=== PATIENT | female | born 1980 | race African-American/Black ===

== ENCOUNTER 2016-08-18 21:42 | Emergency (ER) | payer MEDICAID, OTHER ==
[~2016-08-18] VITALS: Ht 165.1 cm; Wt 113.4 kg
[~2016-08-18 21:42] MED LIST: IBUP-1060 PO; ONDA4TAB7 PO
[2016-08-18 21:50] VITALS: BP 188/131
[2016-08-18] MEDS ORDERED: NAPROXEN 500 MG TABLET PO ONE (22:15)
[2016-08-18] MEDS ORDERED: HYDROCODONE/APAP 5/325MG TABLET. PO ONE (22:15)
--- NOTE | 2016-08-18 22:21 | PHYS DOC ---
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 Patient states she was ambulating to the bathroom doing the " pee, pee dance" when she fell. Patient denies any loss of consciousness. Review of Systems Review of Systems Constitutional: Denies fever or chills [] Eyes: Denies change in visual acuity, redness, or eye pain [] Musculoskeletal: Left ankle pain Integument: Denies rash or skin lesions [] Neurologic: Denies headache, focal weakness or sensory changes [] Endocrine: Denies polyuria or polydipsia [] Current Medications Current Medications Current Medications Medications (Trade) Dose Ordered Sig/Carole Start Time Stop Time Status Last Admin Dose Admin Acetaminophen/ Hydrocodone Bitart (Lortab 5/325) 1 tab 1X ONCE 08/18/16 22:15 08/18/16 22:16 DC 08/18/16 22:19 1 TAB Naproxen (Naprosyn) 500 mg 1X ONCE 08/18/16 22:15 08/18/16 22:16 DC 08/18/16 22:19 500 MG Allergies Allergies Allergies Coded Allergies Type Severity Reaction Last Updated Verified No Known Drug Allergies 05/26/16 No Physical Exam Physical Exam Constitutional: Well developed, well nourished, no acute distress, non-toxic appearance. [] HENT: Normocephalic, atraumatic, bilateral external ears normal, oropharynx moist, no oral exudates, nose normal. [] Skin: Warm, dry, no erythema, no rash. [] Back: No tenderness, no CVA tenderness. [] Extremities: Left ankle with no obvious deformity. Left lateral ankle with bruising. Tenderness on palpation of the left lateral ankle. Mild amount of soft tissue swelling throughout the ankle worse on the lateral aspect. Full range of motion to the left ankle including flexion and extension. +2 left pedal pulse. Cap refill less than 2 seconds the left lower extremity. Sensation intact to the left lower extremity. Neurologic: Alert and oriented X 3, normal motor function, normal sensory function, no focal deficits noted. [] Psychologic: Affect normal, judgement normal, mood normal. [] Current Patient Data Vital Signs Vital Signs Date Time Temp Pulse Resp B/P Pulse Ox O2 Delivery O2 Flow Rate FiO2 08/18/16 22:19 18 97 Room Air 08/18/16 21:50 98.2 103 98.2 EKG EKG [] Radiology/Procedures Radiology/Procedures [] Course & Med Decision Making Course & Med Decision Making Pertinent Labs and Imaging studies reviewed. (See chart for details) Patient is in the ED with left ankle pain after falling. Left ankle x-rays interpreted by Dr. Walker are negative for any acute findings. Air cast was applied to the left ankle by the ED RN, neurovascular exam done by me is normal , cap refill less than 2 seconds. Ice elevation encouraged. Naproxen for pain. Follow-up with Ortho in one week. Dragon Disclaimer Dragon Disclaimer This electronic medical record was generated, in whole or in part, using a voice recognition dictation system. Departure Departure Impression: Primary Impression: Fall from standing Additional Impression: Left ankle sprain Disposition: 01 HOME, SELF-CARE Condition: STABLE Referrals: NO PCP (PCP) CAMI HEATH MD See him in one week Patient Instructions: Ankle Sprain Additional Instructions: You have left ankle sprain. Ice and elevate the extremity. Wear the air cast as needed. Follow-up with the provided orthopedic doctor in one week if pain continues. Problem Qualifiers Primary Impression: Fall from standing Encounter type: initial encounter Qualified Code: W19.XXXA - Unspecified fall, initial encounter Additional Impression: Left ankle sprain Encounter type: initial encounter Involved ligament of ankle: unspecified ligament Qualified Code: S93.402A - Sprain of unspecified ligament of left ankle, initial encounter ARGELIAJUSTUS TRUCKING SUPERVISOR Aug 18, 2016 22:21
--- NOTE | 2016-08-19 08:08 | RAD ---
Indication fall, pain. AP oblique and lateral views of the left ankle were obtained. There is some soft tissue swelling which is relatively mild. No acute bony finding is seen.
== END 2016-08-18 23:30 | disposition home or self-care (01) ==
LOC: ER 21:42
DX: S93.402A Sprain of unspecified ligament of left ankle, initial encounter (principal); I10 Essential (primary) hypertension; W19.XXXA Unspecified fall, initial encounter; Y93.01 Activity, walking, marching and hiking; Y92.89 Other specified places as the place of occurrence of the external cause; Y99.8 Other external cause status
CPT/HCPCS: 29515; 73610; 99284-25

== ENCOUNTER → 2016-09-28 | Outpatient (CLI) | payer OTHER ==
--- NOTE | 2016-09-28 14:20 | KCIC ---
PROCEDURE MR of the left knee HISTORY Left knee pain. Fell 1 month ago. Medial pain and swelling. COMPARISON None TECHNIQUE Routine multiplanar sequences are obtained. FINDINGS No evidence of medial meniscal tear. Lateral meniscus demonstrates mild signal at the anterior horn, suspicious for mild tear but not definitive. Posterior horn intact. Anterior and posterior cruciate ligaments are intact. Medial collateral ligament sprain without rupture. Iliotibial band unremarkable. Fibular collateral ligament, biceps femoris tendon and popliteus tendon are intact. Extensor mechanism is intact. Small joint effusion. No evidence of osteochondral loose body. 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 No evidence of bone lesion or acute fracture. Trace Garcia cyst. Mild lateral patellar tilt and subluxation. Mild subcutaneous edema anterior to the knee. IMPRESSION Mild anterior horn lateral meniscal signal, potentially a small tear. Posterior horn intact. Electronically signed by: Constantin Renee MD (September 28, 2016 14:18:31)
== END | disposition home or self-care (01) ==
LOC: KCIC MRI 13:03
PROVIDERS: ATTEND Orthopaedic Surgery
DX: M25.562 Pain in left knee (principal)
CPT/HCPCS: 73721

== ENCOUNTER 2016-11-12 20:38 | Emergency (ER) | payer OTHER ==
[~2016-11-12] VITALS: Ht 165.1 cm; Wt 151.1 kg
[2016-11-12 20:55] VITALS: BP 165/94
[2016-11-12] MEDS ORDERED: HYDR-971 PO (21:13)
[2016-11-12] MEDS ORDERED: CLIN150C14 PO (21:13)
--- NOTE | 2016-11-12 21:14 | PHYS DOC ---
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 She states that she changed deodorant 3 days ago and this developed. She denies any fever, chills or any nausea vomiting. She denies any drainage coming from the site. Patient states that she has never had an abscess before. Pain is a 10 out of 10 although has not taken anything for the discomfort for the last 3 days. Review of Systems Review of Systems Constitutional: Denies fever or chills [] Eyes: Denies change in visual acuity, redness, or eye pain [] HENT: Denies nasal congestion or sore throat [] Respiratory: Denies cough or shortness of breath [] Cardiovascular: No additional information not addressed in HPI [] GI: Denies abdominal pain, nausea, vomiting, bloody stools or diarrhea [] : Denies dysuria or hematuria [] Musculoskeletal: Denies back pain or joint pain [] Integument: Denies rash or skin lesions. Abscess to the right axilla Neurologic: Denies headache, focal weakness or sensory changes [] Endocrine: Denies polyuria or polydipsia [] Allergies Allergies Allergies Coded Allergies Type Severity Reaction Last Updated Verified No Known Drug Allergies 05/26/16 No Physical Exam Physical Exam Constitutional: Well developed, well nourished, no acute distress, non-toxic appearance. [] HENT: Normocephalic, atraumatic, bilateral external ears normal, oropharynx moist, no oral exudates, nose normal. [] Eyes: PERRLA, EOMI, conjunctiva normal, no discharge. [] Neck: Normal range of motion, no tenderness, supple, no stridor. [] Cardiovascular:Heart rate regular rhythm, no murmur [] Lungs & Thorax: Bilateral breath sounds clear to auscultation [] Skin: Warm, dry, no erythema, no rash. Abscess noted to the right axillary area with no induration noted. No drainage or discharge noted. Redness was noted tenderness noted. Back: No tenderness Extremities: No tenderness, no cyanosis, no clubbing, ROM intact, no edema. [] Neurologic: Alert and oriented X 3, normal motor function, normal sensory function, no focal deficits noted. [] Psychologic: Affect normal, judgement normal, mood normal. [] Current Patient Data Vital Signs Vital Signs Date Time Temp Pulse Resp B/P (MAP) Pulse Ox O2 Delivery O2 Flow Rate FiO2 11/12/16 20:55 98.8 100 18 96 Room Air 98.8 EKG EKG [] Radiology/Procedures Radiology/Procedures [] Course & Med Decision Making Course & Med Decision Making Pertinent Labs and Imaging studies reviewed. (See chart for details) Patient was instructed to use warm moist packs 5 times a day for 20 minutes at a time. Recommended patient to follow up care physician in the next 3-5 days. Also instructed patient to take the medication as prescribed be provided with clindamycin and Cantrall for pain and discomfort. She was instructed that Cantrall will cause drowsiness do not take any be alert and oriented. Patient agrees with discharge instructions, treatment regimens and follow-up recommendations. Signs and symptoms to return back to emergency department has been provided. [] Dragon Disclaimer Dragon Disclaimer This electronic medical record was generated, in whole or in part, using a voice recognition dictation system. Departure Departure Impression: Primary Impression: Abscess of right axilla Disposition: HOME, SELF-CARE Condition: STABLE Referrals: NO PCP (PCP) Patient Instructions: Abscess, Evrc-oh-Xmax Additional Instructions: Activity as tolerated. Medication as prescribed. Hydrocodone will cause drowsiness do not take any be alert and oriented. Warm moist packs to the area I times a day for 20 minutes at a time. Follow-up through primary care physician next 3-5 days. Return back to emergency prior signs symptoms of become worse. Scripts Hydrocodone/Apap 5-325 (NORCO 5-325 TABLET) 1 Each Tablet 1 TAB PO PRN Q6HRS Y for PAIN, #20 TAB 0 Refills Prov: JULIO ESCALERA APRN 11/12/16 Clindamycin Hcl (CLINDAMYCIN HCL) 150 Mg Capsule 3 CAP PO TID for 10 Days, CAP Prov: JULIO ESCALERA APRN 11/12/16 JULIO ESCALERA APRN Nov 12, 2016 21:14
[2016-11-12] MEDS ORDERED: DIPHTH,PERTUSS(ACELL),TET TOX 0.5 ML DISP.SYRIN. VAX IM ONE (22:00)
== END 2016-11-12 21:41 | disposition home or self-care (01) ==
LOC: ER 20:38
DX: L02.411 Cutaneous abscess of right axilla (principal); I10 Essential (primary) hypertension
CPT/HCPCS: 90471; 90715; 99283-25

== ENCOUNTER 2017-02-09 12:22 | Emergency (ER) | payer OTHER ==
[~2017-02-09] VITALS: Ht 165.1 cm; Wt 151.0 kg
[~2017-02-09 12:22] MED LIST changes: +CLIN150C14 PO; +HYDR-971 PO
[2017-02-09 13:35] VITALS: BP 182/130
--- NOTE | 2017-02-09 13:46 | PHYS DOC ---
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 She states that she has twisted her knee twice this week and now has generalized pain from the knee down. She states that nothing but rest has improved the pain. Review of Systems Review of Systems Constitutional: Denies fever or chills [] Respiratory: Denies cough or shortness of breath [] Cardiovascular: No additional information not addressed in HPI [] Musculoskeletal: See history of present illness Integument: Denies rash or skin lesions [] Neurologic: Denies headache, focal weakness or sensory changes [] Endocrine: Denies polyuria or polydipsia [] Allergies Allergies Allergies Coded Allergies Type Severity Reaction Last Updated Verified No Known Drug Allergies 05/26/16 No Physical Exam Physical Exam Constitutional: Well developed, well nourished, no acute distress, non-toxic appearance. [] Cardiovascular:Heart rate regular rhythm, no murmur [] Lungs & Thorax: Bilateral breath sounds clear to auscultation [] Skin: Warm, dry, no erythema, no rash. [] Back: No tenderness, no CVA tenderness. [] Extremities: Patient has tenderness to left knee and ankle that is generalized, no swelling, erythema, bruising noted to either extremity, pulses and sensation are intact distal to injury Neurologic: Alert and oriented X 3, normal motor function, normal sensory function, no focal deficits noted. [] Psychologic: Affect normal, judgement normal, mood normal. [] Current Patient Data Vital Signs Vital Signs Date Time Temp Pulse Resp B/P (MAP) Pulse Ox O2 Delivery O2 Flow Rate FiO2 02/09/17 13:35 98.7 80 16 97 Room Air 98.7 EKG EKG [] Radiology/Procedures Radiology/Procedures []PATIENT: NEO MACKEY ACCOUNT: [id number] : 1980 LOCATION: ER AGE: 36 SEX: F EXAM STATUS: REG ER ORD. PHYSICIAN: NON,STAFF REASON: pain, fell down x 4 days ago PROCEDURE: ANKLE LEFT 3V Exam: Left ankle radiograph 02/09/2017 at 1348 hours Indication: Pain, fall Comparison: Left ankle radiograph 08/18/2016 Technique: 3 views of the left ankle are provided. Findings: There is no acute fracture or dislocation. Tibial plafond and talar dome are intact. Ankle mortise is congruent. No joint space narrowing. No soft tissue swelling. No osseous erosion or soft tissue gas. Bone mineralization is within normal limits. Impression: No acute fracture or dislocation. DICTATED and SIGNED BY: KISHA BRUCE MD DATE: 02/09/171439 CC: NO PCP; NON,STAFF ~ Impressions: PATIENT: NEO MACKEY ACCOUNT: [id number] : 1980 LOCATION: ER AGE: 36 SEX: F EXAM STATUS: REG ER ORD. PHYSICIAN: NON,STAFF REASON: pain, fell down x 4 days ago PROCEDURE: KNEE LEFT 3V Left knee radiograph 02/09/2017 at 1358 hours Indication: Pain, fall Comparison: None available Technique: 4 views of the left knee are provided. Findings: There is no acute fracture or dislocation. Joint spaces are maintained. Bone mineralization is within normal limits. There is no significant joint effusion. Impression: No acute fracture or dislocation. DICTATED and SIGNED BY: KISHA BRUCE MD DATE: 02/09/171441 Course & Med Decision Making Course & Med Decision Making Pertinent Labs and Imaging studies reviewed. (See chart for details) []1. Knee sprain 2. Ankle sprain Patient was wrapped with Arpit wrap. She is to use ibuprofen or Tylenol for pain at home. RICE. She is to follow-up with her PCP in one week if not improving or return to the ED if worsening. Dragon Disclaimer Dragon Disclaimer This electronic medical record was generated, in whole or in part, using a voice recognition dictation system. Departure Departure Referrals: NO PCP (PCP) GINNY VIRK APRN Feb 09, 2017 13:46
--- NOTE | 2017-02-09 14:43 | RAD ---
Exam: Left ankle radiograph 02/09/2017 at 1348 hours Indication: Pain, fall Comparison: Left ankle radiograph 08/18/2016 Technique: 3 views of the left ankle are provided. Findings: There is no acute fracture or dislocation. Tibial plafond and talar dome are intact. Ankle mortise is congruent. No joint space narrowing. No soft tissue swelling. No osseous erosion or soft tissue gas. Bone mineralization is within normal limits. Impression: No acute fracture or dislocation.
--- NOTE | 2017-02-09 14:46 | RAD ---
Left knee radiograph 02/09/2017 at 1358 hours Indication: Pain, fall Comparison: None available Technique: 4 views of the left knee are provided. Findings: There is no acute fracture or dislocation. Joint spaces are maintained. Bone mineralization is within normal limits. There is no significant joint effusion. Impression: No acute fracture or dislocation.
== END 2017-02-09 15:01 | disposition home or self-care (01) ==
LOC: ER 12:22
DX: S93.402A Sprain of unspecified ligament of left ankle, initial encounter (principal); S83.92XA Sprain of unspecified site of left knee, initial encounter; I10 Essential (primary) hypertension; X50.9XXA Other and unspecified overexertion or strenuous movements or postures, initial encounter; Y93.89 Activity, other specified; Y99.8 Other external cause status; Y92.89 Other specified places as the place of occurrence of the external cause
CPT/HCPCS: 73562; 73610; 99284

== ENCOUNTER → 2017-02-27 | Outpatient (CLI) | payer OTHER ==
[2017-02-09 13:35] VITALS: BP 182/130
--- NOTE | 2017-02-27 10:25 | KCIC ---
LOWER EXT JOINT WO LT dated 02/27/2017 9:30 AM Indication: Left knee pain , swelling , generalized pain. Comparison: 09/28/2016 Technique: Routine multiplanar multisequence imaging performed. . Findings: Mild tricompartmental hypertrophic change with small marginal osteophytes. Thinning and surface irregularity of the articular cartilage throughout. No full-thickness cartilage defect. Near full-thickness cartilage fissuring at the medial and lateral patellar facet. Moderate size joint effusion. Small popliteal cyst. No intra-articular loose body. Anterior cruciate and posterior cruciate ligaments are intact. There is abnormal T2 hyperintense signal along the medial collateral ligament complex proximally with ill-defined admission of the superficial and deep fibers. Edema also extends along the pes anserine complex distally. There is also some increased signal within the distal adductor [place] tendon. Findings have progressed from prior exam. Lateral collateral complex, iliotibial band, popliteus tendon within normal limits. Quadriceps and patellar tendon are intact. No abnormality of the medial or lateral retinaculum. Mild patchy edema within the prepatellar and superficial infrapatellar soft tissues. There is also mild edema within the popliteus musculotendinous junction. Blunted morphology of the free edge of the anterior horn/body of lateral meniscus with possible small linear defect within the substance of the anterior horn extending to the tibial articular surface. The posterior horn is intact. The medial meniscus is small but otherwise intact. No apparent meniscal cyst. IMPRESSION: 1. Small complex tear anterior horn/body of lateral meniscus, similar to prior study. 2. Abnormal signal and thickening of the medial collateral ligament complex proximally, progressed from prior exam. This could be related to chronic intermediate grade strain or partial tear versus acute on chronic injury. Recommend clinical correlation. 3. Moderate size joint effusion. 4. Mild tricompartmental degenerative arthrosis and chondromalacia. Near full-thickness cartilage fissuring at the anterior compartment. 5. Intermediate to low-grade myotendinous strain injury of the popliteus. Electronically signed by: Constantin Landaverde MD (02/27/2017 10:22 AM) [facility]
== END | disposition home or self-care (01) ==
LOC: KCIC MRI 09:02
PROVIDERS: ATTEND Orthopaedic Surgery
DX: S83.204A Other tear of unspecified meniscus, current injury, left knee, initial encounter (principal); M17.12 Unilateral primary osteoarthritis, left knee; M94.262 Chondromalacia, left knee; M25.462 Effusion, left knee; X58.XXXA Exposure to other specified factors, initial encounter; Y93.89 Activity, other specified; Y92.89 Other specified places as the place of occurrence of the external cause; Y99.8 Other external cause status
CPT/HCPCS: 73721

== ENCOUNTER 2017-04-02 05:34 | Day surgery (SDC) | payer OTHER ==
--- NOTE | 2017-04-01 12:27 | PDOC1 ---
History and Physical Date of Admission Date of Admission DATE: 04/02/17 Identification/Chief Complaint Chief Complaint left knee pain Problems: Source Source: Chart review History of Present Illness History of Present Illness Patrizia is a 36 year old female who presents today with left knee pain for months, worsening in a fall on 02.06.16. X-rays at [facility] showed no acute fracture or dislocation. An MRI at [facility] on 09.28.16 showed a potential mild tear on the anterior horn of the lateral meniscus. She had an 80mg depo-medrol injection on 10.01.16, which she states did improve the pain. An MRI at [facility] on 02.27.17 showed a small tear at the anterior horn of the lateral meniscus, similar to prior study, an MCL sprain or partial tear of the MCL that has progressed since the prior study, a moderate effusion, chondromalacia and near full-thickness cartilage loss at anterior compartment, and a low grade injury of the popliteus. She states that she needs pain relief and would like to have surgery if possible. The patient states she will cooperate with postoperative care. She has not gone to formal physical therapy after being prescribed it twice. Past Medical History Cardiovascular: HTN Psych: Depression Past Surgical History Past Surgical History: (05/28/13) Family History Family History: Hypertension Social History Smoke: 1 pack per day ALCOHOL: rare Drugs: None Current Medications Current Medications Active Scripts Active [place] 5-325 Tablet (Acetaminophen/Hydrocodone Bitart) 1 Each Tablet 1 Tab PO PRN Q6HRS PRN Clindamycin Hcl 150 Mg Capsule 3 Cap PO TID 10 Days Zofran (Ondansetron Hcl) 4 Mg Tablet 4 Mg PO BID PRN Ibuprofen 800 Mg Tablet 800 Mg PO PRN Q6HRS PRN Reported No Known Medications Prior To Admisstion (Info) Each 1 Each MC Allergies Allergies: Coded Allergies: No Known Drug Allergies (Unverified , 05/26/16) Physical Exam General: Alert, Oriented X3, Cooperative, No acute distress HEENT: Atraumatic, EOMI Lungs: Normal air movement Heart: RRR Abdomen: Soft Extremities: No clubbing, No cyanosis, Normal pulses, Other (LEFT KNEE: She is not not able to fully weight bear on the left knee. Severely antalgic gait. There are no masses but there is a moderate to large effusion. Tenderness to palpation along the medial patellofemoral joint and mild tenderness at the lateral joint line. The knee shows active motion from 20-40 degrees with extreme pain at the extremes of motion. The examination was tough due to guarding. ) Skin: No rashes, No breakdown, No significant lesion Neuro: Normal speech, Sensation intact Psych/Mental Status: Mental status NL, Mood NL Images Images MRI visual images independently reviewed MRI report reviewed. An MRI at [facility] on 02.27.17 showed a small tear at the anterior horn of the lateral meniscus, similar to prior study (seen on series 8 image 7), an MCL sprain or partial tear of the MCL that has progressed since the prior study, a moderate effusion, chondromalacia and near full-thickness cartilage loss at anterior compartment, and a low grade injury of the popliteus. VTE Prophylaxis Ordered VTE Prophylaxis Devices: Yes VTE Pharmacological Prophylaxi: Yes Assessment/Plan Assessment/Plan Her MRI again showed a lateral meniscus tear that is the cause of her pain. She did complete required preoperative formal physical therapy. Dr. De Souza recommended arthroscopy with lateral meniscectomy and the patient states she would be compliant with postoperative care. She was evaluated and treated with physical therapy preoperatively. She completed quadriceps strengthening and crutch training to ensure that she will have the best possible outcome after surgery. She will start Lortab for pain management. Risks of surgery were discussed and she would like to proceed. NAVI FRANCISCO Apr 01, 2017 12:27
[~2017-04-02] VITALS: Ht 165.1 cm; Wt 152.9 kg
[2017-04-02 06:24] LABS: NEG OBC UR NEG; POS OBC UR POS
[2017-04-02 06:32] LABS: BASO # 0.1 x10^3/uL (0.0-0.2); BASO % 1 % (0-3); EOS % 3 % (0-3); HEMATOCRIT 35.7 % (36.0-47.0); HEMOGLOBIN 11.7 g/dL (12.0-15.5); LYMPH # 2.4 x10^3/uL (1.0-4.8); LYMPH % 34 % (24-48); MEAN CORPUSCULAR HEMOGLOBIN 30 pg (25-35); MEAN CORPUSCULAR HGB CONC 33 g/dL (31-37); MEAN CORPUSCULAR VOLUME 91 fL (79-100); MONO % 6 % (0-9); NEUT % 56 % (31-73); PLATELET COUNT 294 x10^3/uL (140-400); RED BLOOD COUNT 3.91 x10^6/uL (3.50-5.40); RED CELL DISTRIBUTION WIDTH 18.4 % (11.5-14.5); WHITE BLOOD COUNT 6.9 x10^3/uL (4.0-11.0)
[2017-04-02] MEDS ORDERED: BUPIVACAINE-EPI 0.25%-1:200000 50 ML VIAL. ONE (06:47)
[2017-04-02] MEDS ORDERED: EPINEPHrine VIAL 30 MG/30 ML VIAL ONE (06:47)
[2017-04-02 06:49] LABS: CALCIUM 9.1 mg/dL (8.5-10.1); CREATININE 0.7 mg/dL (0.6-1.0); GFR 113.9; POTASSIUM 3.5 mmol/L (3.5-5.1)
[2017-04-02] MEDS ORDERED: fentaNYL PF VIAL 100 MCG/2 ML VIAL IV PRN (07:00)
[2017-04-02] MEDS ORDERED: PROCHLORPERAZINE 10 MG/2 ML VIAL. IV PRN (07:00)
[2017-04-02] MEDS ORDERED: LIDOCAINE 1% PF 2 ML VIAL. ID PRN (07:00)
[2017-04-02] MEDS ORDERED: HYDROmorphone 2 MG/ML VIAL IV PRN (07:00)
[2017-04-02] MEDS ORDERED: IV RINGERS,LACTATED 1000ML 1,000 ML IV SCH (07:00)
[2017-04-02] MEDS ORDERED: ONDANSETRON PF 4 MG/2 ML VIAL. IV PRN (07:00)
[2017-04-02] MEDS ORDERED: DEXAMETHASONE SOD PHOS 20 MG/5 ML VIAL. ONE (07:04)
[2017-04-02] MEDS ORDERED: SUCCINYLCHOLINE 200 MG/10 ML VIAL. ONE (07:04)
[2017-04-02] MEDS ORDERED: LIDOCAINE 2% PF Vial for OR 5 ML VIAL. ONE (07:04)
[2017-04-02] MEDS ORDERED: ONDANSETRON PF 4 MG/2 ML VIAL. ONE (07:04)
[2017-04-02] MEDS ORDERED: PROPOFOL 20 ML IV ONE (07:04)
[2017-04-02] MEDS ORDERED: FAMOTIDINE 20 MG/2 ML VIAL ONE (07:04)
[2017-04-02] MEDS ORDERED: ROCURONIUM 50 MG/5 ML VIAL. ONE (07:05)
[2017-04-02] MEDS ORDERED: fentaNYL PF VIAL 100 MCG/2 ML VIAL ONE (07:05)
[2017-04-02] MEDS ORDERED: MIDAZOLAM HCL/PF 2 MG/2 ML VIAL. ONE (07:05)
[2017-04-02] MEDS ORDERED: BUPIVACAINE-EPI 0.5%-1:200000 50 ML VIAL. INJ ONE (07:53)
[2017-04-02] MEDS ORDERED: KETOROLAC 30 MG/ML INJ FOR OR. INJ ONE (08:05)
[2017-04-02] MEDS ORDERED: DESFLURANE 31 TO 60 MINUTES IH ONE (08:21)
--- NOTE | 2017-04-02 08:39 | PDOC4 ---
Operative Note Operative Note Date of Procedure: April 02, 2017 Preoperative Diagnosis: left knee medial meniscus tear Postoperative Diagnosis: left knee lateral meniscus tear Procedures Performed: left knee arthroscopy with lateral meniscectomy Surgeon: Cami De Souza MD Delivery Mgr: Humera Shell PA-C Anesthesia: General Estimated Blood Loss: 5 mL Specimens: none Drains: none Complications: none Tourniquet time: 29 minutes Indications for Procedure: The patient is a 37-year-old with left knee pain, unrelieved with nonoperative treatment. Exam and MRI are consistent with a meniscus tear. We talked about the risks and benefits of proceeding with an arthroscopic procedure. We talked about potential risks of ongoing pain, progressive arthritis, bleeding, infection, blood clots, or other potential surgical or anesthetic complications. All of the patient's questions about surgery were answered and they desired to proceed. Written consent was obtained. Description of Operation: The patient was identified in the preoperative holding area. The correct left knee was marked by me. The patient was taken to the operating room, where a general anesthetic was used. Preoperative antibiotics were given intravenously. A time-out procedure was performed. A tourniquet was placed on the upper thigh. Local anesthetic with epinephrine was injected sterilely into the knee joint using 20 ml of 0.5% bupivacaine with epinephrine. The limb was prepped sterilely and sterile drapes were applied. The limb was exsanguinated with an Esmarch bandage and the tourniquet was inflated to 350 mm Hg. Lateral and medial arthroscopy portals were established. The medial meniscus was normal and stable to probing.The medial tibiofemoral joint showed chondromalacia Outerbridge grade I, so no chondroplasty was required. The medial joint line showed increased medial opening likely due to the previous MCL sprain noted on the MRI, and bracing may be helpful postoperatively. The intercondylar notch was free of loose bodies, and the ACL was intact. The lateral tibiofemoral joint showed an anterior horn lateral meniscus tear, and a meniscectomy was performed with basket forceps and the motorized shaver back to a smooth stable base.The lateral articular surfaces showed chondromalacia Outerbridge grade III, and a shaving chondroplasty was performed removing unstable fragments of cartilage with the shaver. The lateral compartment was extremely tight, especially compared to the medial compartment which did show some laxity. I suspect this knee will eventually go into valgus and become arthritic. The patellofemoral joint showed chondromalacia Outerbridge grade II, so a shaving chondroplasty was performed removing loose unstable fragments of articular cartilage. The suprapatellar pouch, medial and lateral gutters were free of loose bodies. Copious irrigation was used to drain all meniscal and chondral fragments, and the knee was drained of fluid. Steri-Strips were applied and additional local anesthetic with epinephrine was injected, using 30 mL's of 0.5% bupivacaine with epinephrine. A bulky sterile dressing was applied and the tourniquet was released. Humera Shell PA-C my secretary administrative assistant, helped throughout the procedure. She initially helped position the patient on the operating table with a thigh brace, lithotomy leg chamorro and tourniquet. Intraoperatively she manipulated the knee into the correct positions for arthroscopy while I ran the arthroscope in my left hand and shaver probe or other instruments in my right hand. Finally, at the end of the case, she helped remove the lithotomy leg chamorro, thigh brace and tourniquet and helped transfer the patient back to a [facility] in good condition. Needle and sponge counts were correct and there were no apparent complications. I will order a postoperative hinged knee brace to help protect the MCL and allow healing. CAMI DE SOUZA MD Apr 02, 2017 08:39
[2017-04-02] MEDS: fentaNYL PF VIAL 100 MCG/2 ML VIAL IV PRN ×2 (08:48→08:58)
[2017-04-02] MEDS ORDERED: HYDR-2762 PO (08:57)
[2017-04-02] MEDS ORDERED: HYDR-965 PO (08:59)
[2017-04-02 09:15] VITALS: BP 154/97
[2017-04-02] MEDS ORDERED: HYDROcodone/APAP 7.5/325MG 1 TAB TABLET PO PRN ×2 (09:15)
[2017-04-02] MEDS: MORPHINE SULFATE 4 MG/ML DISP.SYRIN. IV PRN ×2 (09:42→09:55)
== END 2017-04-02 10:34 | disposition home or self-care (01) ==
LOC: SURG 05:34
PROVIDERS: ATTEND Orthopaedic Surgery
DX: S83.282A Other tear of lateral meniscus, current injury, left knee, initial encounter (principal); F17.210 Nicotine dependence, cigarettes, uncomplicated; I10 Essential (primary) hypertension; F32.9 Major depressive disorder, single episode, unspecified; Z98.890 Other specified postprocedural states; M94.262 Chondromalacia, left knee; X58.XXXA Exposure to other specified factors, initial encounter; Y93.9 Activity, unspecified; Y92.9 Unspecified place or not applicable; Y99.9 Unspecified external cause status; M19.90 Unspecified osteoarthritis, unspecified site
CPT/HCPCS: 29881; 36415; 80048; 81025; 85025; J0171; J0330; J0690; J0780; J1100; J1885; J2250; J2270; J2405; J2704; J3010; J7120; S0028; J2001

== ENCOUNTER 2017-10-04 11:15 | Emergency (ER) | payer OTHER ==
[2017-10-04] MEDS: IOHEXOL 300 MG/ML 100ML VIAL. IV (12:00)
[2017-10-04] MEDS ORDERED: CONTRAST GIVEN MC (12:00)
[2017-10-04 12:23] LABS: ADD MAN DIFF? NO
[2017-10-04 12:32] LABS: BASO % 1 % (0-3); EOS % 1 % (0-3); HEMATOCRIT 35.1 % (36.0-47.0); HEMOGLOBIN 11.9 g/dL (12.0-15.5); LYMPH # 1.5 x10^3/uL (1.0-4.8); LYMPH % 33 % (24-48); MEAN CORPUSCULAR HEMOGLOBIN 31 pg (25-35); MEAN CORPUSCULAR HGB CONC 34 g/dL (31-37); MEAN CORPUSCULAR VOLUME 91 fL (79-100); MONO # 0.3 x10^3/uL (0.0-1.1); MONO % 6 % (0-9); NEUT # 2.7 x10^3uL (1.8-7.7); NEUT % 60 % (31-73); PLATELET COUNT 287 x10^3/uL (140-400); RED BLOOD COUNT 3.87 x10^6/uL (3.50-5.40); RED CELL DISTRIBUTION WIDTH 19.9 % (11.5-14.5); WHITE BLOOD COUNT 4.6 x10^3/uL (4.0-11.0)
[2017-10-04] MEDS: METOCLOPRAMIDE HCL 10 MG/2 ML VIAL. IV (12:33)
[2017-10-04] MEDS: diphenhydrAMINE 50 MG/ML VIAL IVP (12:34)
[2017-10-04] MEDS: MORPHINE SULFATE 4 MG/ML DISP.SYRIN. IV (12:34)
[2017-10-04 12:42] LABS: ANION GAP 13 (6-14); BLOOD UREA NITROGEN 12 mg/dL (7-20); BUN/CREATININE RATIO 13 (6-20); CALCIUM 8.5 mg/dL (8.5-10.1); CARBON DIOXIDE 25 mmol/L (21-32); CHLORIDE 108 mmol/L (98-107); CREATININE 0.9 mg/dL (0.6-1.0); GFR 85.2; GLUCOSE 73 mg/dL (70-99); POTASSIUM 3.2 mmol/L (3.5-5.1); SODIUM 146 mmol/L (136-145)
[2017-10-04 12:47] LABS: ALBUMIN 3.4 g/dL (3.4-5.0); ALBUMIN/GLOBULIN RATIO 0.9 (1.0-1.7); ALK PHOS 69 U/L (46-116); ALT (SGPT) 32 U/L (14-59); AST (SGOT) 24 U/L (15-37); LIPASE 52 U/L (73-393); TOTAL BILIRUBIN 0.4 mg/dL (0.2-1.0); TOTAL PROTEIN 7.3 g/dL (6.4-8.2)
[2017-10-04 13:02] LABS: URINE HCG POC HCG NEGATIVE (Negative)
[2017-10-04 13:04] LABS: BILIRUBIN,URINE NEGATIVE (NEG); CLARITY,URINE CLOUDY; COLOR,URINE RED; GLUCOSE,URINE NEGATIVE (NEG); NITRITE,URINE NEGATIVE (NEG); PH,URINE 6.5; PROTEIN,URINE 30 mg/dL (NEG-TRACE)
[2017-10-04 13:26] LABS: BACTERIA,URINE 0 /HPF (0-FEW); RBC,URINE TNTC /HPF (0-2); SQUAMOUS EPITHELIAL CELL,UR OCC /LPF; WBC,URINE 0 /HPF (0-4)
[2017-10-04] MEDS: POTASSIUM CHLORIDE 20 MEQ TABLET.ER. PO (14:45)
== END 2017-10-04 14:49 | disposition home or self-care (01) ==
LOC: ER 11:15
DX: R10.84 Generalized abdominal pain (principal); R11.2 Nausea with vomiting, unspecified; R19.7 Diarrhea, unspecified; I10 Essential (primary) hypertension; Z98.51 Tubal ligation status
CPT/HCPCS: 36415; 74177; 80053; 81001; 81025; 83690; 85025; 96374; 96375; 99285-25; J1200; J2270; J2765; Q9967

== ENCOUNTER 2018-01-30 22:33 | Emergency (ER) | payer OTHER ==
[~2018-01-30] VITALS: Ht 165.1 cm; Wt 145.6 kg
[~2018-01-30 22:33] MED LIST changes: +HYDR-2762 PO; +HYDR-965 PO; +ONDA4TAB10 SL
[2018-01-30] MEDS ORDERED: DICYCLOMINE HCL 10 MG CAPSULE PO ONE (23:15)
[2018-01-30] MEDS ORDERED: IV NORMAL SALINE 1000ML BAG 1,000 ML IV ONE (23:15)
[2018-01-30] MEDS ORDERED: KETOROLAC 30 MG/ML VIAL. IV ONE (23:15)
[2018-01-30] MEDS ORDERED: ONDANSETRON PF 4 MG/2 ML VIAL. IV ONE (23:15)
[2018-01-30 23:35] LABS: BILIRUBIN,URINE NEGATIVE (NEG); CLARITY,URINE CLOUDY; COLOR,URINE YELLOW; NITRITE,URINE NEGATIVE (NEG); PH,URINE 5.5; PROTEIN,URINE NEGATIVE (NEG-TRACE)
--- NOTE | 2018-01-30 23:36 | PHYS DOC ---
Past Medical History Past Medical History: Anxiety, Depression, Hypertension, Other Additional Past Medical Histor: "Lost a lot of bld.&had bld.transfusions"w/ delivery.Last [id number]. 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 Patient denies any fever. Denies any chance she is . Her tubes are tied. Denies any back pain. Denies any urgency frequency or dysuria. Patient states her abdominal pain is worse when she is vomiting as well as when somebody is pushing on her stomach. Patient denies any diarrhea. Review of Systems Review of Systems Constitutional: Denies fever or chills [] Eyes: Denies change in visual acuity, redness, or eye pain [] HENT: Denies nasal congestion or sore throat [] Respiratory: Denies cough or shortness of breath [] Cardiovascular: No additional information not addressed in HPI [] GI: Reports generalized abdominal pain with nausea and vomiting, denies bloody stools or diarrhea [] : Denies dysuria or hematuria [] Musculoskeletal: Denies back pain or joint pain [] Integument: Denies rash or skin lesions [] Neurologic: Denies headache, focal weakness or sensory changes [] All other systems were reviewed and found to be within normal limits, except as documented in this note. Current Medications Current Medications Current Medications Medications (Trade) Dose Ordered Sig/Carole Start Time Stop Time Status Last Admin Dose Admin Azithromycin (Zithromax) 1,000 mg 1X ONCE 01/31/18 00:00 01/31/18 00:02 DC 01/31/18 00:00 1,000 MG Ceftriaxone Sodium 50 ml @ 100 mls/hr 1X ONCE 01/31/18 00:00 01/31/18 00:29 DC 01/31/18 00:00 100 MLS/HR Dicyclomine HCl (Bentyl) 20 mg 1X ONCE 01/30/18 23:15 01/30/18 23:16 DC 01/30/18 23:15 20 MG Ketorolac Tromethamine (Toradol 30mg Vial) 30 mg 1X ONCE 01/30/18 23:15 01/30/18 23:16 DC 01/30/18 23:15 30 MG Metronidazole (Flagyl) 2,000 mg 1X ONCE 01/31/18 00:00 01/31/18 00:02 DC 01/31/18 00:00 2,000 MG Ondansetron HCl (Zofran) 4 mg 1X ONCE 01/30/18 23:15 01/30/18 23:16 DC 01/30/18 23:15 4 MG Sodium Chloride 1,000 ml @ 1,000 mls/hr 1X ONCE 01/30/18 23:15 01/31/18 00:14 DC 01/30/18 23:15 1,000 MLS/HR Allergies Allergies Allergies Coded Allergies Type Severity Reaction Last Updated Verified No Known Drug Allergies 04/02/17 No Physical Exam Physical Exam Constitutional: Patient appears unkept and smells. Well developed, well nourished, no acute distress, non-toxic appearance. [] HENT: Normocephalic, atraumatic, bilateral external ears normal, oropharynx moist, no oral exudates, nose normal. [] Eyes: PERRLA, EOMI, conjunctiva normal, no discharge. [] Neck: Normal range of motion, no tenderness, supple, no stridor. [] Cardiovascular:Heart rate regular rhythm, no murmur [] Lungs & Thorax: Bilateral breath sounds clear to auscultation [] Abdomen: Obese abdomen. Bowel sounds normal, soft, diffuse tenderness throughout the abdomen worse at the epigastric region, no right upper quadrant or right lower quadrant tenderness, negative psoas sign, negative obturator sign , negative Rovsing sign, negative Pierce sign, no masses, no pulsatile masses. Skin: Warm, dry, no erythema, no rash. [] Back: No tenderness, no CVA tenderness. [] Extremities: No tenderness, no cyanosis, no clubbing, ROM intact, no edema. [] Neurologic: Alert and oriented X 3, normal motor function, normal sensory function, no focal deficits noted. [] Psychologic: Affect normal, judgement normal, mood normal. [] Current Patient Data Vital Signs Vital Signs Date Time Temp Pulse Resp B/P (MAP) Pulse Ox O2 Delivery O2 Flow Rate FiO2 9/6/18 22:43 99.2 112 24 176/95 (122) 100 Room Air 99.2 Lab Values Laboratory Tests Test 01/30/18 23:25 White Blood Count 6.4 x10^3/uL (4.0-11.0) Red Blood Count 3.82 x10^6/uL (3.50-5.40) Hemoglobin 11.5 g/dL (12.0-15.5) L Hematocrit 34.0 % (36.0-47.0) L Mean Corpuscular Volume 89 fL (79-100) Mean Corpuscular Hemoglobin 30 pg (25-35) Mean Corpuscular Hemoglobin Concent 34 g/dL (31-37) Red Cell Distribution Width 18.4 % (11.5-14.5) H Platelet Count 391 x10^3/uL (140-400) Neutrophils (%) (Auto) 47 % (31-73) Lymphocytes (%) (Auto) 43 % (24-48) Monocytes (%) (Auto) 7 % (0-9) Eosinophils (%) (Auto) 1 % (0-3) Basophils (%) (Auto) 1 % (0-3) Neutrophils # (Auto) 3.0 x10^3uL (1.8-7.7) Lymphocytes # (Auto) 2.8 x10^3/uL (1.0-4.8) Monocytes # (Auto) 0.5 x10^3/uL (0.0-1.1) Eosinophils # (Auto) 0.1 x10^3/uL (0.0-0.7) Basophils # (Auto) 0.1 x10^3/uL (0.0-0.2) Urine Collection Type Unknown Urine Color Yellow Urine Clarity Cloudy Urine pH 5.5 Urine Specific Brandon 1.025 Urine Protein Negative mg/dL (NEG-TRACE) Urine Glucose (UA) Negative mg/dL (NEG) Urine Ketones (Stick) Negative mg/dL (NEG) Urine Blood Negative (NEG) Urine Nitrite Negative (NEG) Urine Bilirubin Negative (NEG) Urine Urobilinogen Dipstick 1.0 mg/dL (0.2 mg/dL) Urine Leukocyte Esterase Negative (NEG) Urine RBC 0 /HPF (0-2) Urine WBC Occ /HPF (0-4) Urine Squamous Epithelial Cells Mod /LPF Urine Bacteria Few /HPF (0-FEW) Urine Mucus Mod /LPF Urine Trichomonas Present Sodium Level 144 mmol/L (136-145) Potassium Level 3.6 mmol/L (3.5-5.1) Chloride Level 107 mmol/L (98-107) Carbon Dioxide Level 26 mmol/L (21-32) Anion Gap 11 (6-14) Blood Urea Nitrogen 15 mg/dL (7-20) Creatinine 0.8 mg/dL (0.6-1.0) Estimated GFR (Cockcroft-Gault) 97.7 BUN/Creatinine Ratio 19 (6-20) Glucose Level 78 mg/dL (70-99) Calcium Level 8.8 mg/dL (8.5-10.1) Total Bilirubin 0.3 mg/dL (0.2-1.0) Aspartate Amino Transferase (AST) 16 U/L (15-37) Alanine Aminotransferase (ALT) 19 U/L (14-59) Alkaline Phosphatase 63 U/L (46-116) Total Protein 7.5 g/dL (6.4-8.2) Albumin 3.5 g/dL (3.4-5.0) Albumin/Globulin Ratio 0.9 (1.0-1.7) L Lipase 79 U/L (73-393) Urine Opiates Screen Neg (NEG) Urine Methadone Screen Neg (NEG) Urine Barbiturates Neg (NEG) Urine Phencyclidine Screen Neg (NEG) Urine Amphetamine/Methamphetamine Neg (NEG) Urine Benzodiazepines Screen Neg (NEG) Urine Cocaine Screen Neg (NEG) Urine Cannabinoids Screen Neg (NEG) Ethyl Alcohol Level 62 mg/dL (0-10) H Urine Ethyl Alcohol Pos (NEG) Laboratory Tests 01/30/18 23:25 Laboratory Tests 01/30/18 23:25 EKG EKG [] Radiology/Procedures Radiology/Procedures [] Course & Med Decision Making Course & Med Decision Making Pertinent Labs and Imaging studies reviewed. (See chart for details) This is a 37-year-old female patient presenting to the ED today with complaints of generalized abdominal pain nausea vomiting for 3 days. Negative urine hCG, urine analysis is noted for Trichomonas. CBC with normal WBC, CMP with no acute findings. Patient was given IV fluid, Rocephin and azithromycin and Flagyl. Educated on STDs area and requested she contacts her sex partners and let them know she was treated for Trichomonas and ask them to seek treatment too. Her blood pressure was 176/95. Patient has history of hypertension and is not on any medication. Talked to patient about the need of compliance especially following up with her own PCP and taking the blood pressure medication she is supposed to take. She does not know the name of the medications she supposed to be on neither does she remember the last time she took her blood pressure medicines. Her alcohol level was 62. Highly emphasized importance of following up with the primary care doctor. Her nausea and vomiting has resolved. Discharged with Zofran. Alejandro Disclaimer Alejandro Disclaimer This electronic medical record was generated, in whole or in part, using a voice recognition dictation system. Departure Departure Impression: Primary Impression: Nausea & vomiting Additional Impressions: Abdominal pain Trichomonas infection Hypertension Disposition: HOME, SELF-CARE Condition: STABLE Referrals: UNKNOWN PCP NAME (PCP) Follow-up with your own doctor in 1-2 weeks Patient Instructions: Abdominal Pain, Hypertension, Nausea and Vomiting, Easy- to-Read, Trichomoniasis Additional Instructions: You were evaluated in the emergency room for abdominal pain with nausea and vomiting. You were noted to have Trichomonas and were treated in the emergency room. This is a sexually transmitted diseases. You need to contact all your sex partners, let them know you were treated for an STD called Trichomonas and have them get treated too. Do not have sex for one week. Use protection at all times. Scripts Ondansetron (ZOFRAN ODT) 4 Mg Tab.rapdis 1 TAB SL Q8HRS, #15 TAB Prov: JUSTUS STOUT APRN 01/31/18 Problem Qualifiers Primary Impression: Nausea & vomiting Vomiting type: unspecified Vomiting Intractability: non-intractable Qualified Codes: R11.2 - Nausea with vomiting, unspecified Additional Impressions: Abdominal pain Abdominal location: generalized Qualified Codes: R10.84 - Generalized abdominal pain Hypertension Hypertension type: unspecified Qualified Codes: I10 - Essential (primary) hypertension JUSTUS STOUT APRN Jan 30, 2018 23:36
[2018-01-30 23:41] LABS: BACTERIA,URINE FEW /HPF (0-FEW); RBC,URINE 0 /HPF (0-2); SQUAMOUS EPITHELIAL CELL,UR MOD /LPF; TRICHOMONAS,URINE PRESENT; WBC,URINE OCC /HPF (0-4)
[2018-01-30 23:42] LABS: BARBITURATES NEG (NEG); BENZODIAZEPINES NEG (NEG); CANNABINOIDS NEG (NEG); COCAINE NEG (NEG); METHADONE NEG (NEG); OPIATES NEG (NEG); PHENCYCLIDINE NEG (NEG)
[2018-01-30 23:44] LABS: AMPHETAMINE/METHAMPHETAMINE NEG (NEG)
[2018-01-30 23:47] LABS: BASO # 0.1 x10^3/uL (0.0-0.2); BASO % 1 % (0-3); EOS # 0.1 x10^3/uL (0.0-0.7); EOS % 1 % (0-3); HEMOGLOBIN 11.5 g/dL (12.0-15.5); LYMPH # 2.8 x10^3/uL (1.0-4.8); LYMPH % 43 % (24-48); MEAN CORPUSCULAR HEMOGLOBIN 30 pg (25-35); MEAN CORPUSCULAR HGB CONC 34 g/dL (31-37); MEAN CORPUSCULAR VOLUME 89 fL (79-100); MONO # 0.5 x10^3/uL (0.0-1.1); MONO % 7 % (0-9); NEUT % 47 % (31-73); PLATELET COUNT 391 x10^3/uL (140-400); RED BLOOD COUNT 3.82 x10^6/uL (3.50-5.40); RED CELL DISTRIBUTION WIDTH 18.4 % (11.5-14.5); WHITE BLOOD COUNT 6.4 x10^3/uL (4.0-11.0)
[2018-01-30 23:51] LABS: CALCIUM 8.8 mg/dL (8.5-10.1); CREATININE 0.8 mg/dL (0.6-1.0); GFR 97.7; POTASSIUM 3.6 mmol/L (3.5-5.1)
[2018-01-30 23:57] LABS: ALBUMIN 3.5 g/dL (3.4-5.0); ALBUMIN/GLOBULIN RATIO 0.9 (1.0-1.7); TOTAL BILIRUBIN 0.3 mg/dL (0.2-1.0); TOTAL PROTEIN 7.5 g/dL (6.4-8.2)
[2018-01-31] MEDS ORDERED: metroNIDAZOLE 500 MG TABLET PO ONE
[2018-01-31] MEDS ORDERED: AZITHROMYCIN 250 MG TABLET. PO ONE
[2018-01-31 00:30] VITALS: BP 174/93
[2018-01-31] MEDS ORDERED: ONDA4TAB10 SL (00:47)
== END 2018-01-31 01:20 | disposition home or self-care (01) ==
LOC: ER 22:33
DX: R10.84 Generalized abdominal pain (principal); R11.2 Nausea with vomiting, unspecified; I10 Essential (primary) hypertension; A59.8 Trichomoniasis of other sites; Z98.51 Tubal ligation status; Z98.890 Other specified postprocedural states
CPT/HCPCS: 36415; 80053; 80307; 81001; 83690; 85025; 96361; 96365; 96375; 99284; G0480; J0690; J1885; J2405; J7030; Q0144; G0479

== ENCOUNTER 2018-04-08 07:01 | Emergency (ER) | payer OTHER ==
[~2018-04-08] VITALS: Ht 165.1 cm; Wt 113.4 kg
--- NOTE | 2018-04-08 07:59 | PHYS DOC ---
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 Patient reports 4 year history of chronic abdominal pain. Reports his follow with GI in the past without significant findings. Patient denies any change from her prior episodes. Patient reports symptoms become worse after eating or drinking anything specifically alcohol. Denies fever or chills. Denies known trauma. Denies . Patient does report her tubes are tied and she is currently on her menstrual period. Review of Systems Review of Systems Constitutional: Denies fever or chills [] Eyes: Denies change in visual acuity, redness, or eye pain [] HENT: Denies nasal congestion or sore throat [] Respiratory: Denies cough or shortness of breath [] Cardiovascular: Reports left chest discomfort, denies palpitations GI: Reports abdominal pain, nausea, and vomiting; denies diarrhea [] : Denies dysuria or hematuria [] Musculoskeletal: Denies back pain or joint pain [] Integument: Denies rash or skin lesions [] Neurologic: Denies headache, focal weakness or sensory changes [] Complete systems were reviewed and found to be within normal limits, except as documented in this note. Current Medications Current Medications Current Medications Medications (Trade) Dose Ordered Sig/Carole Start Time Stop Time Status Last Admin Dose Admin Famotidine (Pepcid Vial) 20 mg 1X ONCE 04/08/18 08:00 04/08/18 08:01 DC 04/08/18 08:28 20 MG Ketorolac Tromethamine (Toradol 30mg Vial) 15 mg 1X ONCE 04/08/18 08:00 04/08/18 08:01 DC 04/08/18 08:28 15 MG Ondansetron HCl (Zofran) 4 mg 1X ONCE 04/08/18 08:00 04/08/18 08:01 DC 04/08/18 08:24 4 MG Allergies Allergies Allergies Coded Allergies Type Severity Reaction Last Updated Verified No Known Drug Allergies 04/02/17 No Physical Exam Physical Exam Constitutional: Well developed, well nourished, no acute distress, non-toxic appearance. [] HENT: Normocephalic, atraumatic, oropharynx moist Eyes: Conjunctiva normal, no discharge. [] Neck: Normal range of motion, no tenderness, supple, no meningeal signs Cardiovascular: Heart rate regular rhythm, no murmur [] Lungs & Thorax: Bilateral breath sounds clear to auscultation [] Abdomen: Soft, mild epigastric tenderness on palpation, no guarding or rebound Skin: Warm, dry, no erythema, no rash. [] Extremities: No tenderness, ROM intact, no edema. [] Neurologic: Alert and oriented X 3, normal motor function, normal sensory function, no focal deficits noted. [] Psychologic: Affect normal, judgement normal, mood normal. [] Current Patient Data Vital Signs Vital Signs Date Time Temp Pulse Resp B/P (MAP) Pulse Ox O2 Delivery O2 Flow Rate FiO2 04/08/18 07:11 98.2 98 28 143/89 (107) 100 Room Air 98.2 Lab Values Laboratory Tests Test 04/08/18 07:20 04/08/18 08:00 04/08/18 08:29 White Blood Count 11.9 x10^3/uL (4.0-11.0) H Red Blood Count 4.23 x10^6/uL (3.50-5.40) Hemoglobin 12.7 g/dL (12.0-15.5) Hematocrit 37.9 % (36.0-47.0) Mean Corpuscular Volume 90 fL (79-100) Mean Corpuscular Hemoglobin 30 pg (25-35) Mean Corpuscular Hemoglobin Concent 33 g/dL (31-37) Red Cell Distribution Width 20.0 % (11.5-14.5) H Platelet Count 360 x10^3/uL (140-400) Neutrophils (%) (Auto) 80 % (31-73) H Lymphocytes (%) (Auto) 14 % (24-48) L Monocytes (%) (Auto) 5 % (0-9) Eosinophils (%) (Auto) 0 % (0-3) Basophils (%) (Auto) 1 % (0-3) Neutrophils # (Auto) 9.6 x10^3uL (1.8-7.7) H Lymphocytes # (Auto) 1.6 x10^3/uL (1.0-4.8) Monocytes # (Auto) 0.6 x10^3/uL (0.0-1.1) Eosinophils # (Auto) 0.0 x10^3/uL (0.0-0.7) Basophils # (Auto) 0.1 x10^3/uL (0.0-0.2) D-Dimer (Nany) 0.36 ug/mlFEU (0.00-0.50) Sodium Level 145 mmol/L (136-145) Potassium Level 3.4 mmol/L (3.5-5.1) L Chloride Level 106 mmol/L (98-107) Carbon Dioxide Level 27 mmol/L (21-32) Anion Gap 12 (6-14) Blood Urea Nitrogen 14 mg/dL (7-20) Creatinine 0.9 mg/dL (0.6-1.0) Estimated GFR (Cockcroft-Gault) 84.8 BUN/Creatinine Ratio 16 (6-20) Glucose Level 99 mg/dL (70-99) Calcium Level 9.6 mg/dL (8.5-10.1) Total Bilirubin 1.1 mg/dL (0.2-1.0) H Aspartate Amino Transferase (AST) 18 U/L (15-37) Alanine Aminotransferase (ALT) 21 U/L (14-59) Alkaline Phosphatase 72 U/L (46-116) Creatine Kinase 110 U/L (26-192) Creatine Kinase MB (Mass) 0.9 ng/mL (0.0-3.6) Creatine Kinase MB Relative Index 0.8 % (0-4) Troponin I Quantitative < 0.017 ng/mL (0.000-0.055) Total Protein 8.2 g/dL (6.4-8.2) Albumin 3.8 g/dL (3.4-5.0) Albumin/Globulin Ratio 0.9 (1.0-1.7) L Lipase 63 U/L (73-393) L Ethyl Alcohol Level < 10 mg/dL (0-10) Urine Collection Type Void Urine Color Yellow Urine Clarity Clear Urine pH 8.0 Urine Specific [place] 1.020 Urine Protein 30 mg/dL (NEG-TRACE) Urine Glucose (UA) Negative mg/dL (NEG) Urine Ketones (Stick) Trace mg/dL (NEG) Urine Blood Large (NEG) Urine Nitrite Negative (NEG) Urine Bilirubin Negative (NEG) Urine Urobilinogen Dipstick 1.0 mg/dL (0.2 mg/dL) Urine Leukocyte Esterase Small (NEG) Urine RBC 20-40 /HPF (0-2) Urine WBC Occ /HPF (0-4) Urine Squamous Epithelial Cells Few /LPF Urine Bacteria Few /HPF (0-FEW) POC Urine HCG, Qualitative Hcg negative (Negative) Laboratory Tests 04/08/18 07:20 Laboratory Tests 04/08/18 07:20 EKG EKG @0801 NSR at 73bpm, NO ST elevation, nonspecific t wave inversion V1-V2 Radiology/Procedures Radiology/Procedures PROCEDURE: CHEST PA & LATERAL AP and Lateral Views of the Chest 04/08/2018 9:12 AM Indication: left sided chest pain x 1 day Comparison: Chest radiograph August 16, 2011 Findings: There is no focal consolidation or infiltrate identified. The cardiomediastinal silhouette is within normal limits. Small calcified granuloma noted in the left lateral lung. There is no evidence of pneumothorax or pleural effusion. No acute osseous abnormalities are identified. Impression: No evidence of acute cardiopulmonary process. Electronically signed by: Simon Vigil MD (04/08/2018 9:36 AM) [facility] Course & Med Decision Making Course & Med Decision Making Pertinent Labs and Imaging studies reviewed. (See chart for details) Patient presents with chronic epigastric abdominal pain and reported chest discomfort. Patient recently seen in January for same per [facility] review. Reports has been dealing with symptoms for the last 4 years. Denies change from prior episodes. Labs obtained and posted to chart. Troponin and d-dimer within normal limits. LFTs/lipase stable. EKG stable. CXR stable. Symptomatic treatment provided with interval improvement. Patient stable for discharge with outpatient follow-up with PCP/GI specialist. GI specialist referral provided. Discussed findings and plan with patient, who acknowledges understanding and agreement. Dragon Disclaimer Dragon Disclaimer This electronic medical record was generated, in whole or in part, using a voice recognition dictation system. Departure Departure Impression: Primary Impression: Epigastric abdominal pain Disposition: HOME, SELF-CARE Condition: IMPROVED Referrals: UNKNOWN PCP NAME (PCP) BALDEMAR VARGAS MD Patient Instructions: Abdominal Pain (Nonspecific), Gastritis, Adult, Easy-to- Read Scripts Famotidine (PEPCID) 20 Mg Tablet 20 MG PO BID, #20 TAB Prov: FRIEDA DOWNING DO 04/08/18 Ondansetron (ZOFRAN ODT) 4 Mg Tab.rapdis 4 MG PO Q6HRS PRN for NAUSEA/VOMITING, #14 TAB Prov: FRIEDA DOWNING DO 04/08/18 FRIEDA DOWNING DO Apr 08, 2018 07:59
[2018-04-08] MEDS ORDERED: FAMOTIDINE 20 MG/2 ML VIAL IVP ONE (08:00)
[2018-04-08] MEDS ORDERED: ONDANSETRON PF 4 MG/2 ML VIAL. IV ONE (08:00)
[2018-04-08] MEDS ORDERED: KETOROLAC 30 MG/ML VIAL. IV ONE (08:00)
--- NOTE | 2018-04-08 08:04 | EKG ---
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
[2018-04-08 08:08] LABS: BASO # 0.1 x10^3/uL (0.0-0.2); BASO % 1 % (0-3); EOS % 0 % (0-3); HEMATOCRIT 37.9 % (36.0-47.0); HEMOGLOBIN 12.7 g/dL (12.0-15.5); LYMPH # 1.6 x10^3/uL (1.0-4.8); LYMPH % 14 % (24-48); MEAN CORPUSCULAR HEMOGLOBIN 30 pg (25-35); MEAN CORPUSCULAR HGB CONC 33 g/dL (31-37); MEAN CORPUSCULAR VOLUME 90 fL (79-100); MONO # 0.6 x10^3/uL (0.0-1.1); MONO % 5 % (0-9); NEUT # 9.6 x10^3uL (1.8-7.7); NEUT % 80 % (31-73); PLATELET COUNT 360 x10^3/uL (140-400); RED BLOOD COUNT 4.23 x10^6/uL (3.50-5.40); WHITE BLOOD COUNT 11.9 x10^3/uL (4.0-11.0)
[2018-04-08 08:28] LABS: CALCIUM 9.6 mg/dL (8.5-10.1); CREATININE 0.9 mg/dL (0.6-1.0); GFR 84.8; POTASSIUM 3.4 mmol/L (3.5-5.1)
[2018-04-08 08:34] LABS: ALBUMIN 3.8 g/dL (3.4-5.0); ALBUMIN/GLOBULIN RATIO 0.9 (1.0-1.7); TOTAL BILIRUBIN 1.1 mg/dL (0.2-1.0); TOTAL PROTEIN 8.2 g/dL (6.4-8.2)
[2018-04-08 08:39] LABS: BILIRUBIN,URINE NEGATIVE (NEG); CLARITY,URINE CLEAR; COLOR,URINE YELLOW; NITRITE,URINE NEGATIVE (NEG); PROTEIN,URINE 30 mg/dL (NEG-TRACE)
[2018-04-08 08:53] LABS: BACTERIA,URINE FEW /HPF (0-FEW); RBC,URINE 20-40 /HPF (0-2); SQUAMOUS EPITHELIAL CELL,UR FEW /LPF; WBC,URINE OCC /HPF (0-4)
[2018-04-08 09:25] VITALS: BP 122/58
[2018-04-08] MEDS ORDERED: FAMO-63 PO (09:36)
[2018-04-08] MEDS ORDERED: ONDA4TAB10 PO (09:36)
--- NOTE | 2018-04-08 09:39 | RAD ---
AP and Lateral Views of the Chest 04/08/2018 9:12 AM Indication: left sided chest pain x 1 day Comparison: Chest radiograph August 16, 2011 Findings: There is no focal consolidation or infiltrate identified. The cardiomediastinal silhouette is within normal limits. Small calcified granuloma noted in the left lateral lung. There is no evidence of pneumothorax or pleural effusion. No acute osseous abnormalities are identified. Impression: No evidence of acute cardiopulmonary process. Electronically signed by: Simon Vigil MD (04/08/2018 9:36 AM) [id number]
== END 2018-04-08 09:44 | disposition home or self-care (01) ==
LOC: ER 07:01
DX: R10.13 Epigastric pain (principal); G89.29 Other chronic pain; R11.2 Nausea with vomiting, unspecified; I10 Essential (primary) hypertension; F17.210 Nicotine dependence, cigarettes, uncomplicated; Z98.51 Tubal ligation status; Z98.890 Other specified postprocedural states
CPT/HCPCS: 36415; 71046; 80053; 81001; 81025; 82553; 83690; 84484; 85025; 85379; 87086; 93005; 96374; 96375; 99285; G0480; J1885; J2405; J3490

== ENCOUNTER 2018-08-07 12:04 | Inpatient (IN) | payer OTHER ==
[~2018-08-07] VITALS: Ht 162.6 cm; Wt 140.2 kg
[~2018-08-07 12:04] MED LIST changes: +FAMO-63 PO; -HYDR-2762 PO; +HYDR-2765 PO; +HYDR-3164 PO; +HYDR-3165 PO; -HYDR-965 PO; -HYDR-971 PO; +ONDA4TAB10 PO
[2018-08-07] MEDS ORDERED: ONDANSETRON PF 4 MG/2 ML VIAL. IV ONE ×2 (13:30→17:30)
[2018-08-07] MEDS ORDERED: IV NORMAL SALINE 1000ML BAG 1,000 ML IV ONE (13:30)
[2018-08-07 13:43] LABS: BILIRUBIN,URINE NEGATIVE (NEG); CLARITY,URINE CLEAR; COLOR,URINE AMBER; NITRITE,URINE NEGATIVE (NEG); PROTEIN,URINE NEGATIVE (NEG-TRACE)
[2018-08-07 13:49] LABS: BASO # 0.1 x10^3/uL (0.0-0.2); BASO % 1 % (0-3); EOS % 1 % (0-3); HEMATOCRIT 38.7 % (36.0-47.0); HEMOGLOBIN 12.7 g/dL (12.0-15.5); LYMPH # 1.8 x10^3/uL (1.0-4.8); LYMPH % 20 % (24-48); MEAN CORPUSCULAR HEMOGLOBIN 30 pg (25-35); MEAN CORPUSCULAR HGB CONC 33 g/dL (31-37); MEAN CORPUSCULAR VOLUME 93 fL (79-100); MONO # 0.5 x10^3/uL (0.0-1.1); MONO % 6 % (0-9); NEUT # 6.4 x10^3uL (1.8-7.7); NEUT % 73 % (31-73); PLATELET COUNT 370 x10^3/uL (140-400); RED BLOOD COUNT 4.18 x10^6/uL (3.50-5.40); RED CELL DISTRIBUTION WIDTH 17.8 % (11.5-14.5); WHITE BLOOD COUNT 8.8 x10^3/uL (4.0-11.0)
[2018-08-07 13:52] LABS: BACTERIA,URINE MANY /HPF (0-FEW); RBC,URINE 0 /HPF (0-2); SQUAMOUS EPITHELIAL CELL,UR MANY /LPF; WBC,URINE RARE /HPF (0-4)
[2018-08-07 13:59] LABS: CALCIUM 8.9 mg/dL (8.5-10.1); CREATININE 0.7 mg/dL (0.6-1.0); GFR 113.3; POTASSIUM 3.6 mmol/L (3.5-5.1)
[2018-08-07 14:06] LABS: ALBUMIN 6.3 g/dL (3.4-5.0); ALBUMIN/GLOBULIN RATIO 4.5 (1.0-1.7); TOTAL BILIRUBIN 1.2 mg/dL (0.2-1.0); TOTAL PROTEIN 7.7 g/dL (6.4-8.2)
--- NOTE | 2018-08-07 14:43 | PHYS DOC ---
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 Patient states she has had more than 10 episodes of nausea and vomiting she reports a history of gastritis and states she has not been taking her meds for her gastritis. She denies any diarrhea, chest pain, ear pain, sore throat, dysuria, hematuria, or increased urinary frequency. Patient states that she has had a cough for the last week with clear mucus produced. Currently she complains of epigastric tenderness she rates her pain a 10 out of 10 on the pain scale she states there are no alleviating factors her epigastric pain increases with vomiting and palpation. Review of Systems Review of Systems Constitutional: Denies fever or chills [] Eyes: Denies changes HENT: Denies nasal congestion or sore throat [] Respiratory: Denies wheezing or shortness of breath; see history of present illness [] Cardiovascular: No additional information not addressed in HPI [] GI: See history of present illness : Denies dysuria or hematuria [] Musculoskeletal: Denies back pain or joint pain [] Integument: Denies rash or skin lesions [] Neurologic: Denies headache, focal weakness or sensory changes [] Endocrine: Denies polyuria or polydipsia [] Complete systems were reviewed and found to be within normal limits, except as documented in this note. Current Medications Current Medications Current Medications Medications (Trade) Dose Ordered Sig/Carole Start Time Stop Time Status Last Admin Dose Admin Famotidine (Pepcid Vial) 20 mg 1X ONCE 08/07/18 14:45 08/07/18 14:46 DC 08/07/18 15:01 20 MG Info (CONTRAST GIVEN -- Rx MONITORING) 1 each PRN DAILY PRN 08/07/18 15:15 08/09/18 15:14 Iohexol (Omnipaque 300 Mg/ml) 75 ml 1X ONCE 08/07/18 15:15 08/07/18 15:16 DC 08/07/18 15:09 75 ML Morphine Sulfate (Morphine Sulfate) 4 mg 1X ONCE 08/07/18 14:45 08/07/18 14:46 DC 08/07/18 15:01 4 MG Ondansetron HCl (Zofran) 4 mg 1X ONCE 08/07/18 17:30 08/07/18 17:32 DC 08/07/18 17:37 4 MG Sodium Chloride 1,000 ml @ 100 mls/hr Q10H 08/07/18 17:31 08/08/18 03:30 Allergies Allergies Allergies Coded Allergies Type Severity Reaction Last Updated Verified No Known Drug Allergies 04/02/17 No Physical Exam Physical Exam Constitutional: Well developed, well nourished, no acute distress, non-toxic appearance., obese [] HENT: Normocephalic, atraumatic, bilateral external ears normal, oropharynx moist, no oral exudates, nose normal. [] Eyes: conjunctiva normal, no discharge. [] Neck: Normal range of motion, no tenderness, supple, no stridor. [] Cardiovascular:Heart rate regular rhythm, no murmur [] Lungs & Thorax: Bilateral breath sounds clear to auscultation [] Abdomen: Bowel sounds normal, soft, epigastric tenderness, no pulsatile masses. [] Skin: Warm, dry, no erythema, no rash. [] Extremities: No cyanosis, ROM intact Neurologic: Alert and oriented X 3, no focal deficits noted. [] Psychologic: Affect normal, judgement normal, mood normal. [] Current Patient Data Vital Signs Vital Signs Date Time Temp Pulse Resp B/P (MAP) Pulse Ox O2 Delivery O2 Flow Rate FiO2 08/07/18 17:19 91 21 163/101 (121) 98 Room Air 08/07/18 12:10 98.1 98.1 Lab Values Laboratory Tests Test 08/07/18 12:15 08/07/18 13:32 08/07/18 13:40 Urine Collection Type Unknown Urine Color Heather Urine Clarity Clear Urine pH 7.0 Urine Specific [place] 1.025 Urine Protein Negative mg/dL (NEG-TRACE) Urine Glucose (UA) Negative mg/dL (NEG) Urine Ketones (Stick) Negative mg/dL (NEG) Urine Blood Negative (NEG) Urine Nitrite Negative (NEG) Urine Bilirubin Negative (NEG) Urine Urobilinogen Dipstick 1.0 mg/dL (0.2 mg/dL) Urine Leukocyte Esterase Negative (NEG) Urine RBC 0 /HPF (0-2) Urine WBC Rare /HPF (0-4) Urine Squamous Epithelial Cells Many /LPF Urine Bacteria Many /HPF (0-FEW) Urine Mucus Marked /LPF POC Urine HCG, Qualitative Hcg negative (Negative) White Blood Count 8.8 x10^3/uL (4.0-11.0) Red Blood Count 4.18 x10^6/uL (3.50-5.40) Hemoglobin 12.7 g/dL (12.0-15.5) Hematocrit 38.7 % (36.0-47.0) Mean Corpuscular Volume 93 fL (79-100) Mean Corpuscular Hemoglobin 30 pg (25-35) Mean Corpuscular Hemoglobin Concent 33 g/dL (31-37) Red Cell Distribution Width 17.8 % (11.5-14.5) H Platelet Count 370 x10^3/uL (140-400) Neutrophils (%) (Auto) 73 % (31-73) Lymphocytes (%) (Auto) 20 % (24-48) L Monocytes (%) (Auto) 6 % (0-9) Eosinophils (%) (Auto) 1 % (0-3) Basophils (%) (Auto) 1 % (0-3) Neutrophils # (Auto) 6.4 x10^3uL (1.8-7.7) Lymphocytes # (Auto) 1.8 x10^3/uL (1.0-4.8) Monocytes # (Auto) 0.5 x10^3/uL (0.0-1.1) Eosinophils # (Auto) 0.0 x10^3/uL (0.0-0.7) Basophils # (Auto) 0.1 x10^3/uL (0.0-0.2) Sodium Level 149 mmol/L (136-145) H Potassium Level 3.6 mmol/L (3.5-5.1) Chloride Level 109 mmol/L (98-107) H Carbon Dioxide Level 26 mmol/L (21-32) Anion Gap 14 (6-14) Blood Urea Nitrogen 13 mg/dL (7-20) Creatinine 0.7 mg/dL (0.6-1.0) Estimated GFR (Cockcroft-Gault) 113.3 BUN/Creatinine Ratio 19 (6-20) Glucose Level 90 mg/dL (70-99) Calcium Level 8.9 mg/dL (8.5-10.1) Total Bilirubin 1.2 mg/dL (0.2-1.0) H Aspartate Amino Transferase (AST) 273 U/L (15-37) H Alanine Aminotransferase (ALT) 272 U/L (14-59) H Alkaline Phosphatase 70 U/L (46-116) Total Protein 7.7 g/dL (6.4-8.2) Albumin 6.3 g/dL (3.4-5.0) H Albumin/Globulin Ratio 4.5 (1.0-1.7) H Lipase 51 U/L (73-393) L Laboratory Tests 08/07/18 13:40 Laboratory Tests 08/07/18 13:40 EKG EKG [] Radiology/Procedures Radiology/Procedures PROCEDURE: CT ABD PELV W/ IV CONTRST ONLY CT ABD PELV W/ IV CONTRST ONLY Indication: ABD PAIN N/V INJ 75ML OMNI 300 PREV SENT Exposure: One or more of the following individualized dose reduction techniques were utilized for this examination: 1. Automated exposure control 2. Adjustment of the mA and/or kV according to patient size 3. Use of iterative reconstruction technique. Comparison: October 04, 2017 Technique: No intravenous contrast given. No oral contrast per request. Findings: Evaluation of solid viscera, bowel and vasculature is compromised by the noncontrast technique. Mild bronchial wall thickening again identified in the lower lungs. No consolidating infiltrate. Hypoattenuation of the liver, likely fatty infiltration. Spleen unremarkable. Pancreas unremarkable. No adrenal mass. Kidneys demonstrate symmetric enhancement. No calcified gallstone. No aortic aneurysm. No significant lymph node enlargement. No bowel obstruction. No evidence of acute colitis. The appendix appears within normal limits. Chronic appearing soft tissue density at the right anterior abdominal wall is unchanged. There is artifact degradation of the pelvis, presumably due to body habitus. The urinary bladder is not well seen. No obvious pelvic mass. No evidence of ascites or pneumoperitoneum. Vertebral body height and alignment are grossly intact. Sclerotic changes at the sacroiliac joints, right greater the left, are stable. Small dense bone lesion at the posteroinferior left acetabulum appears stable as compared with prior compatible with a bone island. IMPRESSION: 1. No acute findings in the abdomen or pelvis. 2. Chronic soft tissue density at the anterior inferior abdominal wall is unchanged. 3. Sacroiliac joint changes, likely chronic sacroiliitis, are unchanged.[] PROCEDURE: ABDOMEN LTD Exam: Ultrasound abdomen limited CLINICAL HISTORY: ELEVATED LIVER ENZYMES AND BILI/N/V COMPARISON: None available. TECHNIQUE: Ultrasound of the upper abdomen was performed. FINDINGS: The liver measure at least 20.6 cm in length in the right mid clavicular line. Hepatic margin is smooth. Diffuse hepatic echogenicity may be seen with hepatic steatosis. There are no focal liver lesions. Flow is identified in the hepatic veins and portal veins with normal waveforms. The gallbladder is distended although no definite gallstone, wall thickening or pericholecystic fluid is seen. There is no pain with direct transducer pressure over the gallbladder. The common bile duct measures 0.7 cm. Visualized portions of the pancreatic head are unremarkable although the the body and tail are mostly obscured by overlying bowel gas.. The right kidney measures 13 cm in bipolar length. No focal renal lesion or hydronephrosis. Visualized portions of the abdominal aorta and inferior vena cava are unremarkable. There is no free fluid in the upper abdomen. IMPRESSION: 1. Hepatomegaly and hepatic steatosis. No focal hepatic lesion. 2. The gallbladder is distended, nonspecific but may be seen with fasting state. Course & Med Decision Making Course & Med Decision Making Pertinent Labs and Imaging studies reviewed. (See chart for details) Dx: intractable vomiting Pt was given 1L NS, 20 mg of pepcid IV, 4 mg of morphine, and 2 doses of 4 mg of zofran in the ER. CBC unremarkable, CMP Na 149, Cl 109, Bili 1.2, AST 273, ALT 727, lipase normal, UA not concerning CT abd/pel w/contrast no acute findings, RUQ US hepatomegaly adn hepatic steatosis, distended gallbladder. 1731- Spoke with Dr. Gonzales and advised her of patient and test results, will admit patient for intractable vomiting. [] Dragon Disclaimer Dragon Disclaimer This electronic medical record was generated, in whole or in part, using a voice recognition dictation system. Departure Departure Referrals: NO PCP (PCP) JEANNA RONDON APRN Aug 07, 2018 14:42
[2018-08-07] MEDS ORDERED: MORPHINE SULFATE 4 MG/ML VIAL. IV ONE (14:45)
[2018-08-07] MEDS ORDERED: FAMOTIDINE 20 MG/2 ML VIAL IVP ONE (14:45)
[2018-08-07] MEDS ORDERED: CONTRAST GIVEN. MC PRN (15:15)
[2018-08-07] MEDS ORDERED: IOHEXOL 300 MG/ML 100ML VIAL. IV ONE (15:15)
--- NOTE | 2018-08-07 15:36 | RAD ---
CT ABD PELV W/ IV CONTRST ONLY Indication: ABD PAIN N/V INJ 75ML OMNI 300 PREV SENT Exposure: One or more of the following individualized dose reduction techniques were utilized for this examination: 1. Automated exposure control 2. Adjustment of the mA and/or kV according to patient size 3. Use of iterative reconstruction technique. Comparison: October 04, 2017 Technique: No intravenous contrast given. No oral contrast per request. Findings: Evaluation of solid viscera, bowel and vasculature is compromised by the noncontrast technique. Mild bronchial wall thickening again identified in the lower lungs. No consolidating infiltrate. Hypoattenuation of the liver, likely fatty infiltration. Spleen unremarkable. Pancreas unremarkable. No adrenal mass. Kidneys demonstrate symmetric enhancement. No calcified gallstone. No aortic aneurysm. No significant lymph node enlargement. No bowel obstruction. No evidence of acute colitis. The appendix appears within normal limits. Chronic appearing soft tissue density at the right anterior abdominal wall is unchanged. There is artifact degradation of the pelvis, presumably due to body habitus. The urinary bladder is not well seen. No obvious pelvic mass. No evidence of ascites or pneumoperitoneum. Vertebral body height and alignment are grossly intact. Sclerotic changes at the sacroiliac joints, right greater the left, are stable. Small dense bone lesion at the posteroinferior left acetabulum appears stable as compared with prior compatible with a bone island. IMPRESSION: 1. No acute findings in the abdomen or pelvis. 2. Chronic soft tissue density at the anterior inferior abdominal wall is unchanged. 3. Sacroiliac joint changes, likely chronic sacroiliitis, are unchanged. Electronically signed by: Constantin Renee MD (08/07/2018 3:33 PM) [id number]
[2018-08-07] MEDS ORDERED: IV NORMAL SALINE 1000ML BAG 1,000 ML IV SCH (17:31)
--- NOTE | 2018-08-07 17:31 | RAD ---
Exam: Ultrasound abdomen limited CLINICAL HISTORY: ELEVATED LIVER ENZYMES AND BILI/N/V COMPARISON: None available. TECHNIQUE: Ultrasound of the upper abdomen was performed. FINDINGS: The liver measure at least 20.6 cm in length in the right mid clavicular line. Hepatic margin is smooth. Diffuse hepatic echogenicity may be seen with hepatic steatosis. There are no focal liver lesions. Flow is identified in the hepatic veins and portal veins with normal waveforms. The gallbladder is distended although no definite gallstone, wall thickening or pericholecystic fluid is seen. There is no pain with direct transducer pressure over the gallbladder. The common bile duct measures 0.7 cm. Visualized portions of the pancreatic head are unremarkable although the the body and tail are mostly obscured by overlying bowel gas.. The right kidney measures 13 cm in bipolar length. No focal renal lesion or hydronephrosis. Visualized portions of the abdominal aorta and inferior vena cava are unremarkable. There is no free fluid in the upper abdomen. IMPRESSION: 1. Hepatomegaly and hepatic steatosis. No focal hepatic lesion. 2. The gallbladder is distended, nonspecific but may be seen with fasting state. Electronically signed by: Oscar Winters MD (08/07/2018 5:28 PM) [facility]
[2018-08-07] MEDS ORDERED: ONDANSETRON PF 4 MG/2 ML VIAL. IV PRN ×2 (17:45)
[2018-08-07] MEDS ORDERED: PROCHLORPERAZINE 25 MG SUPP.RECT. PR PRN (17:45)
[2018-08-07] MEDS ORDERED: fentaNYL PF VIAL 100 MCG/2 ML VIAL IV PRN (17:45)
[2018-08-07] MEDS ORDERED: MAG HYDROX/ALUMINUM HYD/SIMETH 30 ML ORAL.SUSP PO PRN (17:45)
[2018-08-07] MEDS ORDERED: oxyCODONE IR 5 MG TABLET PO PRN (17:45)
[2018-08-07] MEDS ORDERED: KETOROLAC 15 MG/ML VIAL. IV PRN (17:45)
[2018-08-07] MEDS ORDERED: HYDROcodone/APAP 7.5/325MG 1 TAB TABLET PO PRN (17:45)
[2018-08-07] MEDS ORDERED: ACETAMINOPHEN 325 MG TABLET. PO PRN (17:45)
[2018-08-07] MEDS ORDERED: MORPHINE SULFATE 2 MG/ML VIAL. IV PRN (17:45)
[2018-08-07] MEDS ORDERED: MAGNESIUM HYDROXIDE 2,400 MG/30 ML ORAL.SUSP. PO PRN (17:45)
[2018-08-07] MEDS ORDERED: PROCHLORPERAZINE 10 MG/2 ML VIAL. IV PRN (17:45)
[2018-08-07] MEDS ORDERED: CALCIUM CARBONATE 500 MG TAB.CHEW PO PRN (17:45)
--- NOTE | 2018-08-07 18:30 | NUR ---
Patient arrived to this unit by stretcher at this time. Patient was assisted to the bathroom.
[2018-08-07 19:00] VITALS: BP 169/66
[2018-08-07] MEDS ORDERED: IOHEXOL 300 MG/ML 100ML VIAL. ONE (19:22)
[2018-08-07] MEDS ORDERED: FAMOTIDINE 20 MG/2 ML VIAL IVP SCH (21:00)
[2018-08-07] MEDS ORDERED: FAMOTIDINE 20 MG TABLET. PO SCH (21:00)
[2018-08-07] MEDS: ZOLPIDEM 5 MG TABLET. PO PRN (21:44)
[2018-08-07 23:00] VITALS: BP 138/89
[2018-08-08 03:00] VITALS: BP 142/87
[2018-08-08 07:00] VITALS: BP 147/87
[2018-08-08 07:17] LABS: ALBUMIN 3.2 g/dL (3.4-5.0); DIRECT BILIRUBIN 0.4 mg/dL (0.0-0.2); TOTAL BILIRUBIN 1.6 mg/dL (0.2-1.0); TOTAL PROTEIN 6.9 g/dL (6.4-8.2)
--- NOTE | 2018-08-08 09:05 | PDOC1 ---
History and Physical Date of Admission Date of Admission DATE: 08/08/18 TIME: 09:05 Source Source: Chart review, Patient History of Present Illness History of Present Illness Ms. Monet is a 38 year old AA female who presents to the emergency room with complaints of nausea and vomiting since yesterday. Patient states she has had more than 10 episodes of nausea and vomiting she reports a history of gastritis and states she has not been taking her meds for her gastritis. She denies any diarrhea, chest pain, ear pain, sore throat, dysuria, hematuria, or increased urinary frequency. Patient states that she has had a cough for the last week with clear mucus produced. Currently she complains of epigastric tenderness she rates her pain a 10 out of 10 on the pain scale she states there are no alleviating factors her epigastric pain increases with vomiting and palpation. Past Medical History Cardiovascular: HTN GI: Other (gastroparesis) Psych: Depression Past Surgical History Past Surgical History: Family History Family History: Hypertension Social History ALCOHOL: rare Drugs: None Current Medications Current Medications Current Medications Sodium Chloride 1,000 ml @ 1,000 mls/hr 1X ONCE IV Last administered on at 14:00; Start 08/07/18 at 13:30; Stop 08/07/18 at 14:29; Status DC Ondansetron HCl (Zofran) 4 mg 1X ONCE IV Last administered on 08/07/18at 14:01 ; Start 08/07/18 at 13:30; Stop 08/07/18 at 13:31; Status DC Morphine Sulfate (Morphine Sulfate) 4 mg 1X ONCE IV Last administered on at 15:01; Start 08/07/18 at 14:45; Stop 08/07/18 at 14:46; Status DC Famotidine (Pepcid Vial) 20 mg 1X ONCE IVP Last administered on 08/07/18at 15: 01; Start 08/07/18 at 14:45; Stop 08/07/18 at 14:46; Status DC Iohexol (Omnipaque 300 Mg/ml) 75 ml 1X ONCE IV Last administered on 08/07/18at 15:09; Start 08/07/18 at 15:15; Stop 08/07/18 at 15:16; Status DC Info (CONTRAST GIVEN -- Rx MONITORING) 1 each PRN DAILY PRN MC SEE COMMENTS; Start 08/07/18 at 15:15; Stop 08/09/18 at 15:14 Ondansetron HCl (Zofran) 4 mg 1X ONCE IV Last administered on 08/07/18at 17:37 ; Start 08/07/18 at 17:30; Stop 08/07/18 at 17:32; Status DC Ondansetron HCl (Zofran) 4 mg PRN Q8HRS PRN IV NAUSEA/VOMITING; Start 08/07/18 at 17:45; Stop 08/07/18 at 17:45; Status DC Sodium Chloride 1,000 ml @ 100 mls/hr Q10H IV Last administered on 08/07/18at 19:57; Start 08/07/18 at 17:31; Stop 08/08/18 at 03:30; Status DC Ondansetron HCl (Zofran) 4 mg PRN Q6HRS PRN IV NAUSEA/VOMITING Last administered on 08/07/18at 20:11; Start 08/07/18 at 17:45 Prochlorperazine Edisylate (Compazine) 10 mg PRN Q6HRS PRN IV NAUSEA/VOMITING, 2ND CHOICE; Start 08/07/18 at 17:45 Prochlorperazine (Compazine) 25 mg PRN Q12HR PRN UT NAUSEA/VOMITING; Start at 17:45 Al Hydroxide/Mg Hydroxide (Mylanta Plus Xs) 30 ml PRN Q3HRS PRN PO HEARTBURN / GAS; Start 08/07/18 at 17:45 Calcium Carbonate/ Glycine (Tums) 500 mg PRN Q3HRS PRN PO UPSET STOMACH; Start 08/07/18 at 17:45 Zolpidem Tartrate (Ambien) 5 mg PRN QHS PRN PO INSOMNIA, MAY REPEAT IN 1HR Last administered on 08/07/18at 21:44; Start 08/07/18 at 17:45 Oxycodone HCl (Roxicodone) 5 mg PRN Q3HRS PRN PO BREAKTHROUGH PAIN; Start 08/07 at 17:45 Morphine Sulfate (Morphine Sulfate) 2 mg PRN Q2HR PRN IV PAIN Last administered on 08/07/18at 20:11; Start 08/07/18 at 17:45 Ketorolac Tromethamine (Toradol 15mg Vial) 15 mg PRN Q6HRS PRN IV PAIN; Start 08/07/18 at 17:45; Stop 08/12/18 at 17:44 Acetaminophen (Tylenol) 650 mg PRN Q6HRS PRN PO Headaches, Temp > 101.5F; Start 08/07/18 at 17:45 Magnesium Hydroxide (Milk Of Magnesia) 2,400 mg PRN Q12HR PRN PO CONSTIPATION; Start 08/07/18 at 17:45 Fentanyl Citrate (Fentanyl 2ml Vial) 50 mcg PRN Q2HR PRN IV PAIN; Start at 17:45 Famotidine (Pepcid Vial) 20 mg QHS IVP Last administered on 08/07/18at 20:11; Start 08/07/18 at 21:00 Famotidine (Pepcid) 20 mg BID PO ; Start 08/07/18 at 21:00; Status UNV Acetaminophen/ Hydrocodone Bitart (Lortab 7.5/325) 1 tab PRN Q4HRS PRN PO MODERATE - SEVERE PAIN; Start 08/07/18 at 17:45 Iohexol (Omnipaque 300 Mg/ml) 100 ml STK-MED ONCE .ROUTE ; Start 08/07/18 at 19: 22; Stop 08/07/18 at 19:23; Status DC Active Scripts Active Pepcid (Famotidine) 20 Mg Tablet 20 Mg PO BID Zofran Odt (Ondansetron) 4 Mg Tab.rapdis 4 Mg PO Q6HRS PRN Zofran Odt (Ondansetron) 4 Mg Tab.rapdis 1 Tab SL Q8HRS Zofran Odt (Ondansetron) 4 Mg Tab.rapdis 1 Tab SL Q8HRS Reported Norris 7.5-325 Tablet (Acetaminophen/Hydrocodone Bitart) 1 Each Tablet 1-2 Tab PO PRN Q4HRS PRN Hydrocodone-Apap 7.5-325 (Hydrocodone Bit/Acetaminophen) 1 Each Tablet 1-2 Tab PO PRN Q4HRS PRN Allergies Allergies: Coded Allergies: No Known Drug Allergies (Unverified , 04/02/17) ROS General: YES: Chills PSYCHOLOGICAL ROS: No: Anxiety, Behavioral Disorder, Concentration difficultie , Decreased libido, Depression, Disorientation, Hallucinations, Hostility, Irritablity, Memory difficulties, Mood Swings, Obsessive thoughts, Physical abuse, Sexual abuse, Sleep disturbances, Suicidal ideation, Other Eyes: No Blurry vision, No Decreased vision, No Double vision, No Dry eyes, No Excessive tearing, No Eye Pain, No Itchy Eyes, No Loss of vision, No Photophobia , No Scotomata, No Uses contacts, No Uses glasses, No Other HEENT: No: Heacaches, Visual Changes, Hearing change, Nasal congestion, Nasal discharge, Oral lesions, Sinus pain, Sore Throat, Epistaxis, Sneezing, Snoring, Tinnitus, Vertigo, Vocal changes, Other Respiratory: No: Cough, Hemoptysis, Orthopnea, Pleuritic Pain, Shortness of breath, SOB with excertion, Sputum Changes, Stridor, Tachypnea, Wheezing, Other Gastrointestinal: Yes Nausea, Yes Vomiting, Yes Abdominal Pain Genitourinary: No Dysuria, No Frequency, No Incontinence, No Hematuria, No Retention, No Discharge, No Urgency, No Pain, No Flank Pain, No Other, No , No , No , No , No , No , No Musculoskeletal: No Gait Disturbance, No Joint Pain, No Joint Stiffness, No Joint Swelling, No Muscle Pain, No Muscular Weakness, No Pain In:, No Swelling In:, No Other Neurological: No Behavorial Changes, No Bowel/Bladder ControlChng, No Confusion , No Dizziness, No Gait Disturbance, No Headaches, No Impaired Coord/balance, No Memory Loss, No Numbness/Tingling, No Seizures, No Speech Problems, No Tremors, No Visual Changes, No Weakness, No Other Skin: No Dry Skin, No Eczema, No Hair Changes, No Lumps, No Mole Changes, No Mottling, No Nail Changes, No Pruritus, No Rash, No Skin Lesion Changes, No Other, No Acne Physical Exam General: Alert, Oriented X3, Cooperative, mild distress HEENT: Mucous membr. moist/pink Lungs: Normal air movement Heart: no gallops Abdomen: Soft (very obese, skin tender on lipoma on lower abd, no guarding) Extremities: No clubbing, No edema Skin: No rashes, No significant lesion Neuro: Normal speech, Sensation intact Psych/Mental Status: Mental status NL, Mood NL Vitals Vitals Vital Signs Date Time Temp Pulse Resp B/P (MAP) Pulse Ox O2 Delivery O2 Flow Rate FiO2 08/08/18 07:00 97.6 78 18 147/87 (107) 97 Room Air 97.6 Labs Labs Laboratory Tests Test 08/07/18 12:15 08/07/18 13:32 08/07/18 13:40 08/08/18 06:30 Urine Collection Type Unknown Urine Color Heather Urine Clarity Clear Urine pH 7.0 Urine Specific [place] 1.025 Urine Protein Negative mg/dL (NEG-TRACE) Urine Glucose (UA) Negative mg/dL (NEG) Urine Ketones (Stick) Negative mg/dL (NEG) Urine Blood Negative (NEG) Urine Nitrite Negative (NEG) Urine Bilirubin Negative (NEG) Urine Urobilinogen Dipstick 1.0 mg/dL (0.2 mg/dL) Urine Leukocyte Esterase Negative (NEG) Urine RBC 0 /HPF (0-2) Urine WBC Rare /HPF (0-4) Urine Squamous Epithelial Cells Many /LPF Urine Bacteria Many /HPF (0-FEW) Urine Mucus Marked /LPF Bedside Urine HCG, Qualitative Hcg negative (Negative) White Blood Count 8.8 x10^3/uL (4.0-11.0) Red Blood Count 4.18 x10^6/uL (3.50-5.40) Hemoglobin 12.7 g/dL (12.0-15.5) Hematocrit 38.7 % (36.0-47.0) Mean Corpuscular Volume 93 fL (79-100) Mean Corpuscular Hemoglobin 30 pg (25-35) Mean Corpuscular Hemoglobin Concent 33 g/dL (31-37) Red Cell Distribution Width 17.8 % (11.5-14.5) Platelet Count 370 x10^3/uL (140-400) Neutrophils (%) (Auto) 73 % (31-73) Lymphocytes (%) (Auto) 20 % (24-48) Monocytes (%) (Auto) 6 % (0-9) Eosinophils (%) (Auto) 1 % (0-3) Basophils (%) (Auto) 1 % (0-3) Neutrophils # (Auto) 6.4 x10^3uL (1.8-7.7) Lymphocytes # (Auto) 1.8 x10^3/uL (1.0-4.8) Monocytes # (Auto) 0.5 x10^3/uL (0.0-1.1) Eosinophils # (Auto) 0.0 x10^3/uL (0.0-0.7) Basophils # (Auto) 0.1 x10^3/uL (0.0-0.2) Sodium Level 149 mmol/L (136-145) Potassium Level 3.6 mmol/L (3.5-5.1) Chloride Level 109 mmol/L (98-107) Carbon Dioxide Level 26 mmol/L (21-32) Anion Gap 14 (6-14) Blood Urea Nitrogen 13 mg/dL (7-20) Creatinine 0.7 mg/dL (0.6-1.0) Estimated GFR (Cockcroft-Gault) 113.3 BUN/Creatinine Ratio 19 (6-20) Glucose Level 90 mg/dL (70-99) Calcium Level 8.9 mg/dL (8.5-10.1) Total Bilirubin 1.2 mg/dL (0.2-1.0) 1.6 mg/dL (0.2-1.0) Aspartate Amino Transf (AST/SGOT) 273 U/L (15-37) 119 U/L (15-37) Alanine Aminotransferase (ALT/SGPT) 272 U/L (14-59) 185 U/L (14-59) Alkaline Phosphatase 70 U/L (46-116) 67 U/L (46-116) Total Protein 7.7 g/dL (6.4-8.2) 6.9 g/dL (6.4-8.2) Albumin 6.3 g/dL (3.4-5.0) 3.2 g/dL (3.4-5.0) Albumin/Globulin Ratio 4.5 (1.0-1.7) Lipase 51 U/L (73-393) Direct Bilirubin 0.4 mg/dL (0.0-0.2) Laboratory Tests Test 08/07/18 12:15 08/07/18 13:32 08/07/18 13:40 08/08/18 06:30 Urine Collection Type Unknown Urine Color Heather Urine Clarity Clear Urine pH 7.0 Urine Specific [place] 1.025 Urine Protein Negative mg/dL (NEG-TRACE) Urine Glucose (UA) Negative mg/dL (NEG) Urine Ketones (Stick) Negative mg/dL (NEG) Urine Blood Negative (NEG) Urine Nitrite Negative (NEG) Urine Bilirubin Negative (NEG) Urine Urobilinogen Dipstick 1.0 mg/dL (0.2 mg/dL) Urine Leukocyte Esterase Negative (NEG) Urine RBC 0 /HPF (0-2) Urine WBC Rare /HPF (0-4) Urine Squamous Epithelial Cells Many /LPF Urine Bacteria Many /HPF (0-FEW) Urine Mucus Marked /LPF Bedside Urine HCG, Qualitative Hcg negative (Negative) White Blood Count 8.8 x10^3/uL (4.0-11.0) Red Blood Count 4.18 x10^6/uL (3.50-5.40) Hemoglobin 12.7 g/dL (12.0-15.5) Hematocrit 38.7 % (36.0-47.0) Mean Corpuscular Volume 93 fL (79-100) Mean Corpuscular Hemoglobin 30 pg (25-35) Mean Corpuscular Hemoglobin Concent 33 g/dL (31-37) Red Cell Distribution Width 17.8 % (11.5-14.5) Platelet Count 370 x10^3/uL (140-400) Neutrophils (%) (Auto) 73 % (31-73) Lymphocytes (%) (Auto) 20 % (24-48) Monocytes (%) (Auto) 6 % (0-9) Eosinophils (%) (Auto) 1 % (0-3) Basophils (%) (Auto) 1 % (0-3) Neutrophils # (Auto) 6.4 x10^3uL (1.8-7.7) Lymphocytes # (Auto) 1.8 x10^3/uL (1.0-4.8) Monocytes # (Auto) 0.5 x10^3/uL (0.0-1.1) Eosinophils # (Auto) 0.0 x10^3/uL (0.0-0.7) Basophils # (Auto) 0.1 x10^3/uL (0.0-0.2) Sodium Level 149 mmol/L (136-145) Potassium Level 3.6 mmol/L (3.5-5.1) Chloride Level 109 mmol/L (98-107) Carbon Dioxide Level 26 mmol/L (21-32) Anion Gap 14 (6-14) Blood Urea Nitrogen 13 mg/dL (7-20) Creatinine 0.7 mg/dL (0.6-1.0) Estimated GFR (Cockcroft-Gault) 113.3 BUN/Creatinine Ratio 19 (6-20) Glucose Level 90 mg/dL (70-99) Calcium Level 8.9 mg/dL (8.5-10.1) Total Bilirubin 1.2 mg/dL (0.2-1.0) 1.6 mg/dL (0.2-1.0) Aspartate Amino Transf (AST/SGOT) 273 U/L (15-37) 119 U/L (15-37) Alanine Aminotransferase (ALT/SGPT) 272 U/L (14-59) 185 U/L (14-59) Alkaline Phosphatase 70 U/L (46-116) 67 U/L (46-116) Total Protein 7.7 g/dL (6.4-8.2) 6.9 g/dL (6.4-8.2) Albumin 6.3 g/dL (3.4-5.0) 3.2 g/dL (3.4-5.0) Albumin/Globulin Ratio 4.5 (1.0-1.7) Lipase 51 U/L (73-393) Direct Bilirubin 0.4 mg/dL (0.0-0.2) VTE Prophylaxis Ordered VTE Prophylaxis Devices: No VTE Pharmacological Prophylaxi: Yes Assessment/Plan Assessment/Plan acute nausea and vomiting viral enteritis on known gastroenteritis, home meds GI consult morbid obeisty, BMI 53 RAPHAEL CRAFT MD Aug 08, 2018 09:05
--- NOTE | 2018-08-08 10:10 | PDOC2 ---
GI CONSULT Reason For Consult: Transaminitis HPI: HPI: 38 y/o female who tells me she's been ill for 2 years. Reports monthly episodes of vomiting and upper abd cramping. No precipitating or alleviating factors. Symptoms usually resolved after a few days. Associated w/ a lot of gas. Ill this time for 3-4 days. "I just drank water and it started." H/o GERD improved on Pepcid QD. Says orange juice and fruit punch aggravate it. Occasional globus after vomiting - denies dysphagia or odynophagia. No hematemesis. Denies diarrhea or constipation but hasn't stooled in a week. Denies hematochezia and melena. No previous EGD or colonoscopy. Denies liver, GB, pancreas, and PUD history. Had a blood transfusion once with a miscarriage. Takes ibuprofen sometimes. Labs significant for elevated LFTs - bili 1.6, AST 119 (from 273), ALT 185 ( from 272), Alk Phos 67 (from 70). Hepatic steatosis on imaging. Has been + for alcohol here in the past. Is thirsty. PMH: PMH: , tonsillectomy, left knee surgery, tubal ligation FH: Family History: No pertinent hx (denies GI cancers) Social History: Smoke: <1 pack per day ALCOHOL: other ("a couple drinks sometimes") Drugs: None ROS: GEN: Denies fevers, chills, sweats HEENT: Denies blurred vision, sore throat CV: Denies chest pain RESP: Denies shortness of air, cough GI: Per HPI : Denies hematuria, dysuria ENDO: Denies weight changes NEURO: Denies confusion, dizziness MSK: Denies weakness, joint pain/swelling SKIN: Denies jaundice, pruritus Vitals: Vitals: Vital Signs Date Time Temp Pulse Resp B/P (MAP) Pulse Ox O2 Delivery O2 Flow Rate FiO2 08/08/18 07:00 97.6 78 18 147/87 (107) 97 Room Air 97.6 Labs: Labs: Laboratory Tests Test 08/07/18 12:15 08/07/18 13:32 08/07/18 13:40 08/08/18 06:30 Urine Collection Type Unknown Urine Color Heather Urine Clarity Clear Urine pH 7.0 Urine Specific [place] 1.025 Urine Protein Negative mg/dL (NEG-TRACE) Urine Glucose (UA) Negative mg/dL (NEG) Urine Ketones (Stick) Negative mg/dL (NEG) Urine Blood Negative (NEG) Urine Nitrite Negative (NEG) Urine Bilirubin Negative (NEG) Urine Urobilinogen Dipstick 1.0 mg/dL (0.2 mg/dL) Urine Leukocyte Esterase Negative (NEG) Urine RBC 0 /HPF (0-2) Urine WBC Rare /HPF (0-4) Urine Squamous Epithelial Cells Many /LPF Urine Bacteria Many /HPF (0-FEW) Urine Mucus Marked /LPF Bedside Urine HCG, Qualitative Hcg negative (Negative) White Blood Count 8.8 x10^3/uL (4.0-11.0) Red Blood Count 4.18 x10^6/uL (3.50-5.40) Hemoglobin 12.7 g/dL (12.0-15.5) Hematocrit 38.7 % (36.0-47.0) Mean Corpuscular Volume 93 fL (79-100) Mean Corpuscular Hemoglobin 30 pg (25-35) Mean Corpuscular Hemoglobin Concent 33 g/dL (31-37) Red Cell Distribution Width 17.8 % (11.5-14.5) Platelet Count 370 x10^3/uL (140-400) Neutrophils (%) (Auto) 73 % (31-73) Lymphocytes (%) (Auto) 20 % (24-48) Monocytes (%) (Auto) 6 % (0-9) Eosinophils (%) (Auto) 1 % (0-3) Basophils (%) (Auto) 1 % (0-3) Neutrophils # (Auto) 6.4 x10^3uL (1.8-7.7) Lymphocytes # (Auto) 1.8 x10^3/uL (1.0-4.8) Monocytes # (Auto) 0.5 x10^3/uL (0.0-1.1) Eosinophils # (Auto) 0.0 x10^3/uL (0.0-0.7) Basophils # (Auto) 0.1 x10^3/uL (0.0-0.2) Sodium Level 149 mmol/L (136-145) Potassium Level 3.6 mmol/L (3.5-5.1) Chloride Level 109 mmol/L (98-107) Carbon Dioxide Level 26 mmol/L (21-32) Anion Gap 14 (6-14) Blood Urea Nitrogen 13 mg/dL (7-20) Creatinine 0.7 mg/dL (0.6-1.0) Estimated GFR (Cockcroft-Gault) 113.3 BUN/Creatinine Ratio 19 (6-20) Glucose Level 90 mg/dL (70-99) Calcium Level 8.9 mg/dL (8.5-10.1) Total Bilirubin 1.2 mg/dL (0.2-1.0) 1.6 mg/dL (0.2-1.0) Aspartate Amino Transf (AST/SGOT) 273 U/L (15-37) 119 U/L (15-37) Alanine Aminotransferase (ALT/SGPT) 272 U/L (14-59) 185 U/L (14-59) Alkaline Phosphatase 70 U/L (46-116) 67 U/L (46-116) Total Protein 7.7 g/dL (6.4-8.2) 6.9 g/dL (6.4-8.2) Albumin 6.3 g/dL (3.4-5.0) 3.2 g/dL (3.4-5.0) Albumin/Globulin Ratio 4.5 (1.0-1.7) Lipase 51 U/L (73-393) Direct Bilirubin 0.4 mg/dL (0.0-0.2) Allergies: Coded Allergies: No Known Drug Allergies (Unverified , 04/02/17) Medications: Current Medications Medications (Trade) Dose Ordered Sig/Carole Route PRN Reason Start Time Stop Time Status Last Admin Dose Admin Sodium Chloride 1,000 ml @ 1,000 mls/hr 1X ONCE IV 08/07/18 13:30 08/07/18 14:29 DC 08/07/18 14:00 Ondansetron HCl (Zofran) 4 mg 1X ONCE IV 08/07/18 13:30 08/07/18 13:31 DC 08/07/18 14:01 Morphine Sulfate (Morphine Sulfate) 4 mg 1X ONCE IV 08/07/18 14:45 08/07/18 14:46 DC 08/07/18 15:01 Famotidine (Pepcid Vial) 20 mg 1X ONCE IVP 08/07/18 14:45 08/07/18 14:46 DC 08/07/18 15:01 Iohexol (Omnipaque 300 Mg/ml) 75 ml 1X ONCE IV 08/07/18 15:15 08/07/18 15:16 DC 08/07/18 15:09 Ondansetron HCl (Zofran) 4 mg 1X ONCE IV 08/07/18 17:30 08/07/18 17:32 DC 08/07/18 17:37 Sodium Chloride 1,000 ml @ 100 mls/hr Q10H IV 08/07/18 17:31 08/08/18 03:30 DC 08/07/18 19:57 Ondansetron HCl (Zofran) 4 mg PRN Q6HRS PRN IV NAUSEA/VOMITING 08/07/18 17:45 08/07/18 20:11 Zolpidem Tartrate (Ambien) 5 mg PRN QHS PRN PO INSOMNIA, MAY REPEAT IN 1HR 08/07/18 17:45 08/07/18 21:44 Morphine Sulfate (Morphine Sulfate) 2 mg PRN Q2HR PRN IV PAIN 08/07/18 17:45 08/07/18 20:11 Famotidine (Pepcid Vial) 20 mg QHS IVP 08/07/18 21:00 08/07/18 20:11 Imaging: Imaging: CT A/P IMPRESSION: 1. No acute findings in the abdomen or pelvis. 2. Chronic soft tissue density at the anterior inferior abdominal wall is unchanged. 3. Sacroiliac joint changes, likely chronic sacroiliitis, are unchanged. Abd US IMPRESSION: 1. Hepatomegaly and hepatic steatosis. No focal hepatic lesion. 2. The gallbladder is distended, nonspecific but may be seen with fasting state. PE: GEN: NAD - was asleep with gown off HEENT: Atraumatic, PERRL LUNGS: CTAB HEART: RRR ABD: obese, NABS, S/ND/NT, firm nodule toward right groin - superficial EXTREMITY: No edema SKIN: No rashes, no jaundice NEURO/PSYCH: A & O 3 A/P: A/P: Recurrent n/v and upper abd pain GERD Elevated LFTs CRC screen - average risk ?significant alcohol use -- Has orders for clear liquids and to check Hepatitis panel - agree. Will add PPI - can change to IV if unable to tolerate PO. Miralax if she wants. DARLEEN TAVARES Aug 08, 2018 10:10
[2018-08-08 11:00] VITALS: BP 159/91
--- NOTE | 2018-08-08 11:05 | NUR ---
SW following. Discussed with RN, pt is from home. RN advised no SW needs at this time. SW will continue to follow.
[2018-08-08] MEDS: POLYETHYLENE GLYCOL 3350 17 GM PACKET. PO SCH (11:30)
[2018-08-08] MEDS: PANTOPRAZOLE 40 MG TABLET.DR. PO SCH (11:30)
[2018-08-08 15:00] VITALS: BP 152/105
[2018-08-08 19:00] VITALS: BP 176/105
[2018-08-08] MEDS: ZOLPIDEM 5 MG TABLET. PO PRN (22:13)
[2018-08-08 23:00] VITALS: BP 137/98
[2018-08-09 03:00] VITALS: BP 150/100
[2018-08-09 03:41] LABS: BASO % 1 % (0-3); EOS # 0.2 x10^3/uL (0.0-0.7); EOS % 3 % (0-3); HEMOGLOBIN 10.4 g/dL (12.0-15.5); LYMPH # 2.1 x10^3/uL (1.0-4.8); LYMPH % 43 % (24-48); MEAN CORPUSCULAR HEMOGLOBIN 31 pg (25-35); MEAN CORPUSCULAR HGB CONC 33 g/dL (31-37); MEAN CORPUSCULAR VOLUME 94 fL (79-100); MONO # 0.4 x10^3/uL (0.0-1.1); MONO % 8 % (0-9); NEUT # 2.3 x10^3uL (1.8-7.7); NEUT % 46 % (31-73); PLATELET COUNT 245 x10^3/uL (140-400); RED BLOOD COUNT 3.42 x10^6/uL (3.50-5.40); WHITE BLOOD COUNT 4.9 x10^3/uL (4.0-11.0)
[2018-08-09 03:56] LABS: ALBUMIN 2.9 g/dL (3.4-5.0); TOTAL PROTEIN 6.3 g/dL (6.4-8.2)
[2018-08-09 03:57] LABS: ALBUMIN/GLOBULIN RATIO 0.9 (1.0-1.7); CALCIUM 8.4 mg/dL (8.5-10.1); CREATININE 0.9 mg/dL (0.6-1.0); GFR 84.8; POTASSIUM 3.6 mmol/L (3.5-5.1); TOTAL BILIRUBIN 0.4 mg/dL (0.2-1.0)
[2018-08-09 07:00] VITALS: BP 155/97
[2018-08-09] MEDS: PANTOPRAZOLE 40 MG TABLET.DR. PO SCH (08:41)
[2018-08-09] MEDS: POLYETHYLENE GLYCOL 3350 17 GM PACKET. PO SCH (08:49)
[2018-08-09] MEDS ORDERED: ONDA4TAB7 PO (10:39)
[2018-08-09] MEDS ORDERED: Pantoprazole PO (10:39)
[2018-08-09 10:45] VITALS: BP 147/91
--- NOTE | 2018-08-09 13:18 | NUR ---
Discharge Note: NEO MACKEY [address] Discharge instructions and discharge home medications reviewed with Patient and a copy given. All questions have been answered and understanding verbalized. The following instructions and handouts were given: medication, follow up, liver diet, n/v packet, abd pain. Discontinued lines and drains: peripheral iv, tip intact. Patient discharged to home with self care via private vehicle.
== END 2018-08-09 13:15 | disposition home or self-care (01) | DRG 392 ==
LOC: ER 12:04 → 5 SOUTH 17:31
PROVIDERS: ADMIT Internal Medicine; ATTEND Internal Medicine
DX: K21.9 Gastro-esophageal reflux disease without esophagitis (principal); Z68.43 Body mass index [BMI] 50.0-59.9, adult; A08.4 Viral intestinal infection, unspecified; E66.01 Morbid (severe) obesity due to excess calories; I10 Essential (primary) hypertension; F41.9 Anxiety disorder, unspecified; F32.9 Major depressive disorder, single episode, unspecified; F17.210 Nicotine dependence, cigarettes, uncomplicated; Z98.891 History of uterine scar from previous surgery; Z98.51 Tubal ligation status; Z82.49 Family history of ischemic heart disease and other diseases of the circulatory system; Z91.14 Patient's other noncompliance with medication regimen
CPT/HCPCS: 36415; 74177; 76705; 80053; 80076; 81001; 81025; 83690; 85025; 86705; 86709; 86803; 87086; 87340; 96361; 96374; 96375; 96376; J2270; J2405; J3490; J7030; Q9967; 99285-25

== ENCOUNTER 2019-05-14 17:27 | Emergency (ER) | payer MEDICAID, OTHER ==
[~2019-05-14] VITALS: Ht 165.1 cm; Wt 140.2 kg
[~2019-05-14 17:27] MED LIST changes: +Pantoprazole PO
[2019-05-14 18:15] VITALS: BP 155/100
[2019-05-14] MEDS ORDERED: NAPROXEN 500 MG TABLET PO STA (18:22)
[2019-05-14] MEDS ORDERED: AMOX500T PO (18:30)
[2019-05-14] MEDS ORDERED: HYDR-3164 PO (18:30)
--- NOTE | 2019-05-14 18:30 | PHYS DOC ---
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 Patient denies any fever or trismus. Patient reports attempting [id number] remedies with no relief. (JUSTUS STOUT APRN) Review of Systems Review of Systems Constitutional: Denies fever or chills [] Eyes: Denies change in visual acuity, redness, or eye reports right upper ENT-Reports right upper gum dental pain Musculoskeletal: Denies back pain or joint pain [] Integument: Denies rash or skin lesions [] Neurologic: Denies headache, focal weakness or sensory changes [] All other systems were reviewed and found to be within normal limits, except as documented in this note. (JUSTUS STOUT APRN) Current Medications Current Medications Current Medications Medications (Trade) Dose Ordered Sig/Carole Start Time Stop Time Status Last Admin Dose Admin Acetaminophen/ Hydrocodone Bitart (Lortab 5/325) 2 tab 1X ONCE 05/14/19 19:00 05/14/19 18:42 DC 05/14/19 18:39 2 TAB Amoxicillin (Amoxil) 500 mg 1X ONCE 05/14/19 19:00 05/14/19 18:42 DC 05/14/19 18:38 500 MG Naproxen (Naprosyn) 500 mg 1X STAT 05/14/19 18:22 05/14/19 18:25 DC 05/14/19 18:38 500 MG (FRIEDA DOWNING DO) Allergies Allergies Allergies Coded Allergies Type Severity Reaction Last Updated Verified No Known Drug Allergies 04/02/17 No (FRIEDA DOWNING DO) Physical Exam Physical Exam Constitutional: Well developed, well nourished, no acute distress, non-toxic appearance. [] HENT: Normocephalic, atraumatic, bilateral external ears normal, oropharynx moist, no oral exudates, nose normal. [] Right upper teeth are decayed. No gum erythema. Skin: Warm, dry, no erythema, no rash. [] Back: No tenderness, no CVA tenderness. [] Extremities: No tenderness, no cyanosis, no clubbing, ROM intact, no edema. [] Neurologic: Alert and oriented X 3, normal motor function, normal sensory function, no focal deficits noted. [] Psychologic: Affect normal, judgement normal, mood normal. [] (JUSTUS STOUT APRN) Current Patient Data Vital Signs Vital Signs Date Time Temp Pulse Resp B/P (MAP) Pulse Ox O2 Delivery O2 Flow Rate FiO2 05/14/19 18:15 98.8 93 20 155/100 (118) 98 Room Air 98.8 (FRIEDA DOWNING DO) EKG EKG [] (JUSTUS STOUT APRN) Radiology/Procedures Radiology/Procedures [] (JUSTUS STOUT APRN) Course & Med Decision Making Course & Med Decision Making Pertinent Labs and Imaging studies reviewed. (See chart for details) Patient has infected dental caries. Discharged with amoxicillin. Follow-up with her dentist in the next 1-2 weeks. (JUSTUS STOUT APRN) Dragon Disclaimer Dragon Disclaimer This electronic medical record was generated, in whole or in part, using a voice recognition dictation system. (JUSTUS STOUT APRN) Departure Departure Impression: Primary Impression: Infected dental caries Disposition: HOME, SELF-CARE Condition: STABLE Referrals: NO PCP (PCP) Follow up with your dentist as soon as possible Patient Instructions: Dental Caries Additional Instructions: You have infected teeth. Take the prescribed antibiotics until completed. Follow-up with your dentist in one week Scripts Hydrocodone/Apap 5-325 (NORCO 5-325 TABLET) 1 Each Tablet 1 TAB PO Q6HRS, #10 TAB Prov: JUSTUS STOUT APRN 05/14/19 Amoxicillin (AMOXICILLIN) 500 Mg Tablet 1 TAB PO BID, #20 TAB Prov: JUSTUS STOUT APRN 05/14/19 Attending Signature Attending Signature I have reviewed the PA/CULINARY INSTRUCTOR's note and plan of care. I was available for consultation as needed during the patient's visit in the emergency department. I agree with the clinical impression, plan, and disposition. (FRIEDA DOWNINGJUSTUS TA DILLAN May 14, 2019 18:30 FRIEDA DOWNING DO May 15, 2019 01:09
[2019-05-14] MEDS ORDERED: AMOXICILLIN 250 MG CAPSULE. PO ONE (19:00)
[2019-05-14] MEDS ORDERED: HYDROcodone/APAP 5/325MG 1 TAB TABLET PO ONE (19:00)
== END 2019-05-14 18:42 | disposition home or self-care (01) ==
LOC: ER 17:27
DX: K08.89 Other specified disorders of teeth and supporting structures (principal); I10 Essential (primary) hypertension
CPT/HCPCS: 99284

== ENCOUNTER 2019-06-08 10:57 | Emergency (ER) | payer MEDICAID ==
[~2019-06-08 10:57] MED LIST changes: +AMOX500T PO
[2019-06-08] MEDS ORDERED: ONDANSETRON PF 4 MG/2 ML VIAL. IV ONE (11:45)
[2019-06-08] MEDS ORDERED: fentaNYL PF VIAL 100 MCG/2 ML VIAL IV ONE (11:45)
[2019-06-08] MEDS ORDERED: IV NORMAL SALINE 1000ML BAG 1,000 ML IV ONE (11:45)
--- NOTE | 2019-06-08 11:45 | PHYS DOC ---
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 The patient states her last menstrual period was a week and a half ago. He states she is just been drinking Sprite and Spam at home. The patient states that she's had a history of a tubal ligation. Patient also states that she's been dealing with abdominal symptoms off and on for last 2 months. The patient states she went to her primary care doctor and "he keeps ordering tests but has not done anything for pain. I do not go do the tests because of my pain." Review of Systems Review of Systems Constitutional: Reports hot/cold chills. Eyes: Denies change in visual acuity, redness, or eye pain [] HENT: Denies nasal congestion or sore throat [] Respiratory: Reports cough but denies shortness of breath [] Cardiovascular: No additional information not addressed in HPI [] GI: Reports abdominal cramping, nausea, denies vomiting, bloody stools or diarrhea [] : Reports vaginal bleeding. Denies dysuria or hematuria Musculoskeletal: Denies back pain or joint pain [] Integument: Denies rash or skin lesions [] Neurologic: Denies headache, focal weakness or sensory changes [] Endocrine: Denies polyuria or polydipsia [] Complete systems were reviewed and found to be within normal limits, except as documented in this note. Current Medications Current Medications Current Medications Medications (Trade) Dose Ordered Sig/Carole Start Time Stop Time Status Last Admin Dose Admin Fentanyl Citrate (Fentanyl 2ml Vial) 50 mcg 1X ONCE 06/08/19 11:45 06/08/19 11:46 DC 06/08/19 12:12 50 MCG Ondansetron HCl (Zofran) 4 mg 1X ONCE 06/08/19 11:45 06/08/19 11:46 DC 06/08/19 12:11 4 MG Sodium Chloride 1,000 ml @ 1,000 mls/hr 1X ONCE 06/08/19 11:45 06/08/19 12:44 DC 06/08/19 12:10 1,000 MLS/HR Allergies Allergies Allergies Coded Allergies Type Severity Reaction Last Updated Verified No Known Drug Allergies 04/02/17 No Physical Exam Physical Exam Constitutional: Well developed, well nourished, no acute distress, non-toxic appearance. [] HENT: Normocephalic, atraumatic, bilateral external ears normal, oropharynx moist, no oral exudates, nose normal. [] Eyes: PERRLA, EOMI, conjunctiva normal, no discharge. [] Neck: Normal range of motion, no tenderness, supple, no stridor. [] Cardiovascular:Heart rate regular rhythm, no murmur [] Lungs & Thorax: Bilateral breath sounds clear to auscultation [] Abdomen: Bowel sounds normal, soft, diffuse tenderness, no masses, no pulsatile masses. [] Skin: Warm, dry, no erythema, no rash. [] Neurologic: Alert and oriented X 3, normal motor function, normal sensory function, no focal deficits noted. [] Psychologic: Affect normal, judgement normal, mood normal. [] Current Patient Data Vital Signs Vital Signs Date Time Temp Pulse Resp B/P (MAP) Pulse Ox O2 Delivery O2 Flow Rate FiO2 06/08/19 12:12 16 96 Room Air 06/08/19 11:30 98.7 92 187/108 (134) 98.7 Lab Values Laboratory Tests Test 06/08/19 11:52 06/08/19 11:55 06/08/19 12:01 06/08/19 12:19 Urine Collection Type Unknown Urine Color Red Urine Clarity Cloudy Urine pH Urine Specific [place] >=1.030 Urine Protein mg/dL (NEG-TRACE) Urine Glucose (UA) mg/dL (NEG) Urine Ketones (Stick) mg/dL (NEG) Urine Blood (NEG) Urine Nitrite (NEG) Urine Bilirubin (NEG) Urine Urobilinogen Dipstick mg/dL (0.2 mg/dL) Urine Leukocyte Esterase (NEG) Urine RBC Tntc /HPF (0-2) Urine WBC Occ /HPF (0-4) Urine Squamous Epithelial Cells Few /LPF Urine Bacteria 0 /HPF (0-FEW) Urine Mucus Mod /LPF POC Urine HCG, Qualitative Hcg negative (Negative) White Blood Count 4.3 x10^3/uL (4.0-11.0) Red Blood Count 4.00 x10^6/uL (3.50-5.40) Hemoglobin 12.8 g/dL (12.0-15.5) Hematocrit 37.9 % (36.0-47.0) Mean Corpuscular Volume 95 fL (79-100) Mean Corpuscular Hemoglobin 32 pg (25-35) Mean Corpuscular Hemoglobin Concent 34 g/dL (31-37) Red Cell Distribution Width 16.6 % (11.5-14.5) H Platelet Count 308 x10^3/uL (140-400) Neutrophils (%) (Auto) 50 % (31-73) Lymphocytes (%) (Auto) 40 % (24-48) Monocytes (%) (Auto) 7 % (0-9) Eosinophils (%) (Auto) 2 % (0-3) Basophils (%) (Auto) 1 % (0-3) Neutrophils # (Auto) 2.1 x10^3/uL (1.8-7.7) Lymphocytes # (Auto) 1.7 x10^3/uL (1.0-4.8) Monocytes # (Auto) 0.3 x10^3/uL (0.0-1.1) Eosinophils # (Auto) 0.1 x10^3/uL (0.0-0.7) Basophils # (Auto) 0.0 x10^3/uL (0.0-0.2) Sodium Level 139 mmol/L (136-145) Potassium Level 3.5 mmol/L (3.5-5.1) Chloride Level 102 mmol/L (98-107) Carbon Dioxide Level 28 mmol/L (21-32) Anion Gap 9 (6-14) Blood Urea Nitrogen 7 mg/dL (7-20) Creatinine 0.9 mg/dL (0.6-1.0) Estimated GFR (Cockcroft-Gault) 84.3 BUN/Creatinine Ratio 8 (6-20) Glucose Level 106 mg/dL (70-99) H Calcium Level 9.1 mg/dL (8.5-10.1) Total Bilirubin 0.6 mg/dL (0.2-1.0) Aspartate Amino Transferase (AST) 16 U/L (15-37) Alanine Aminotransferase (ALT) 21 U/L (14-59) Alkaline Phosphatase 73 U/L (46-116) Total Protein 7.6 g/dL (6.4-8.2) Albumin 3.6 g/dL (3.4-5.0) Albumin/Globulin Ratio 0.9 (1.0-1.7) L Lipase 68 U/L (73-393) L Influenza Type A Antigen Negative (NEGATIVE) Influenza Type B Antigen Negative (NEGATIVE) Laboratory Tests 06/08/19 12:01 Laboratory Tests 06/08/19 12:01 EKG EKG [] Radiology/Procedures Radiology/Procedures [][facility] [address] [place], [place] [id number] IMAGING REPORT Signed PATIENT: NEO MACKEY ACCOUNT: [id number] : 1980 LOCATION: ER AGE: 39 SEX: F EXAM STATUS: REG ER ORD. PHYSICIAN: CONSTANTIN BRANHAM APRN REASON: vaginal bleeding PROCEDURE: PELVIS W/TV Pelvic ultrasound HISTORY: Vaginal bleeding. FINDINGS: Exam is technically difficult due to large body habitus. Transabdominal scan: Uterus is poorly visualized. Endovaginal scan: Uterus measures 10.0 x 6.0 x 6.6 cm. No definite focal mass lesion is identified. Uterus is somewhat heterogeneous. Endometrial stripe measures approximately 9 mm. Small nabothian cysts noted at the cervix. Right ovary measures 6.1 x 2.9 x 4.6 cm. There is a cystic appearing lesion within the right ovary measuring 5 cm. Intact blood supply to the right ovary. Left ovary measures 3.1 x 3.0 x 2.5 cm. Intact blood supply to the left ovary. Left ovarian lesion with a cystic appearance measures 2.3 cm. No significant hypervascularity. Mild free pelvic fluid in the right adnexal region. IMPRESSION: 1. Somewhat limited exam due to body habitus. 2. Bilateral ovarian cysts, largest on the right measures 5 cm. 3. Mild free pelvic fluid in the right adnexal region. Electronically signed by: Constantin Renee MD (06/08/2019 1:01 PM) [facility] DICTATED and SIGNED BY: CONSTANTIN RENEE MD DATE: 06/08/19 1301 Course & Med Decision Making Course & Med Decision Making Pertinent Labs and Imaging studies reviewed. (See chart for details) Will get labs, Flu, UA, pelvic ultrasound and give supportive care. Will also check . is negative. Labs are unremarkable. Ultrasound: IMPRESSION: 1. Somewhat limited exam due to body habitus. 2. Bilateral ovarian cysts, largest on the right measures 5 cm. 3. Mild free pelvic fluid in the right adnexal region. Electronically signed by: Constantin Renee MD (06/08/2019 1:01 PM) [facility] Dragon Disclaimer Dragon Disclaimer This electronic medical record was generated, in whole or in part, using a voice recognition dictation system. Departure Departure Impression: Primary Impression: Vaginal bleeding Disposition: HOME, SELF-CARE Condition: STABLE Referrals: NO PCP (PCP) CONSTANTIN EDOUARD MD Patient Instructions: Ovarian Cyst Additional Instructions: Thank you for visiting [facility]. We appreciate you trusting us with your care. If any additional problems come up don't hesitate to return to visit us. Please follow up with your primary care provider so they can plan additional care if needed and know about the problem that you had. If symptoms worsen come back to the Emergency Department. Any concerning symptoms that start such as chest pain, shortness of air, weakness or numbness on one side of the body, running high fevers or any other concerning symptoms return to the ER. CONSTANTIN BRANHAM APRN Jun 08, 2019 11:45
[2019-06-08 12:04] LABS: CLARITY,URINE CLOUDY; COLOR,URINE RED
[2019-06-08 12:11] LABS: BASO % 1 % (0-3); EOS # 0.1 x10^3/uL (0.0-0.7); EOS % 2 % (0-3); HEMATOCRIT 37.9 % (36.0-47.0); HEMOGLOBIN 12.8 g/dL (12.0-15.5); LYMPH # 1.7 x10^3/uL (1.0-4.8); LYMPH % 40 % (24-48); MEAN CORPUSCULAR HEMOGLOBIN 32 pg (25-35); MEAN CORPUSCULAR HGB CONC 34 g/dL (31-37); MEAN CORPUSCULAR VOLUME 95 fL (79-100); MONO # 0.3 x10^3/uL (0.0-1.1); MONO % 7 % (0-9); NEUT # 2.1 x10^3/uL (1.8-7.7); NEUT % 50 % (31-73); PLATELET COUNT 308 x10^3/uL (140-400); RED CELL DISTRIBUTION WIDTH 16.6 % (11.5-14.5); WHITE BLOOD COUNT 4.3 x10^3/uL (4.0-11.0)
[2019-06-08 12:15] LABS: CALCIUM 9.1 mg/dL (8.5-10.1); CREATININE 0.9 mg/dL (0.6-1.0); GFR 84.3; POTASSIUM 3.5 mmol/L (3.5-5.1)
[2019-06-08 12:21] LABS: ALBUMIN 3.6 g/dL (3.4-5.0); ALBUMIN/GLOBULIN RATIO 0.9 (1.0-1.7); TOTAL BILIRUBIN 0.6 mg/dL (0.2-1.0); TOTAL PROTEIN 7.6 g/dL (6.4-8.2)
[2019-06-08 12:22] LABS: BACTERIA,URINE 0 /HPF (0-FEW); RBC,URINE TNTC /HPF (0-2); SQUAMOUS EPITHELIAL CELL,UR FEW /LPF; WBC,URINE OCC /HPF (0-4)
[2019-06-08 12:44] LABS: INFLUENZA A PATIENT NEGATIVE (NEGATIVE); INFLUENZA B PATIENT NEGATIVE (NEGATIVE)
--- NOTE | 2019-06-08 13:04 | RAD ---
Pelvic ultrasound HISTORY: Vaginal bleeding. FINDINGS: Exam is technically difficult due to large body habitus. Transabdominal scan: Uterus is poorly visualized. Endovaginal scan: Uterus measures 10.0 x 6.0 x 6.6 cm. No definite focal mass lesion is identified. Uterus is somewhat heterogeneous. Endometrial stripe measures approximately 9 mm. Small nabothian cysts noted at the cervix. Right ovary measures 6.1 x 2.9 x 4.6 cm. There is a cystic appearing lesion within the right ovary measuring 5 cm. Intact blood supply to the right ovary. Left ovary measures 3.1 x 3.0 x 2.5 cm. Intact blood supply to the left ovary. Left ovarian lesion with a cystic appearance measures 2.3 cm. No significant hypervascularity. Mild free pelvic fluid in the right adnexal region. IMPRESSION: 1. Somewhat limited exam due to body habitus. 2. Bilateral ovarian cysts, largest on the right measures 5 cm. 3. Mild free pelvic fluid in the right adnexal region. Electronically signed by: Constantin Renee MD (06/08/2019 1:01 PM) [facility]
[2019-06-08 13:26] VITALS: BP 197/121
== END 2019-06-08 13:26 | disposition home or self-care (01) ==
LOC: ER 10:57
DX: N93.9 Abnormal uterine and vaginal bleeding, unspecified (principal); R10.84 Generalized abdominal pain; R63.0 Anorexia; R19.7 Diarrhea, unspecified; R05 Cough; R11.0 Nausea; F32.9 Major depressive disorder, single episode, unspecified; F41.9 Anxiety disorder, unspecified; I10 Essential (primary) hypertension; Z98.51 Tubal ligation status
CPT/HCPCS: 36415; 76830; 76856; 80053; 81001; 81025; 83690; 85025; 87804; 96361; 96374; 96375; 99285; J2405; J3010; J7030

== ENCOUNTER → 2019-06-18 | Outpatient (CLI) | payer MEDICAID ==
[2019-06-08 13:26] VITALS: BP 197/121
[2019-06-18 11:46] LABS: HEMATOCRIT 33.7 % (36.0-47.0); HEMOGLOBIN 11.1 g/dL (12.0-15.5); RED BLOOD COUNT 3.54 x10^6/uL (3.50-5.40); RED CELL DISTRIBUTION WIDTH 17.2 % (11.5-14.5)
== END | disposition home or self-care (01) ==
LOC: LAB 11:18
PROVIDERS: ATTEND Obstetrics & Gynecology
DX: N92.0 Excessive and frequent menstruation with regular cycle (principal)
CPT/HCPCS: 36415; 84443; 85027

== ENCOUNTER 2019-07-05 10:46 | Emergency (ER) | payer MEDICAID ==
[~2019-07-05] VITALS: Ht 165.1 cm; Wt 100.0 kg
--- NOTE | 2019-07-05 11:24 | PHYS DOC ---
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 The abdominal symptoms have been going on intermittently for 2 months. Associated symptoms include nausea and vomiting. The patient states her last m enstrual period was earlier in May. She was seen by this provider earlier in May and diagnosed with ovarian cysts. She followed up with Dr. Schneider from OB who wanted to put her on control but she declined. The patient states that she's had a history of a tubal ligation. The patient states she went to her primary care doctor and "he keeps ordering tests but has not done anything for pain. I do not go do the tests because of my pain." The patient states that the pain she is feeling today is exactly what she has been feeling for several months. Review of Systems Review of Systems Constitutional: Denies fever or chills [] Eyes: Denies change in visual acuity, redness, or eye pain [] HENT: Denies nasal congestion or sore throat [] Respiratory: Denies cough or shortness of breath [] Cardiovascular: No additional information not addressed in HPI [] GI: Reports abdominal pain, nausea, vomiting, denies bloody stools or diarrhea [] : Reports vaginal spotting. Denies dysuria or hematuria [] Musculoskeletal: Denies back pain or joint pain [] Integument: Denies rash or skin lesions [] Neurologic: Denies headache, focal weakness or sensory changes [] Endocrine: Denies polyuria or polydipsia [] Complete systems were reviewed and found to be within normal limits, except as documented in this note. Current Medications Current Medications Current Medications Medications (Trade) Dose Ordered Sig/Carole Start Time Stop Time Status Last Admin Dose Admin Fentanyl Citrate (Fentanyl 2ml Vial) 75 mcg 1X ONCE 07/05/19 11:15 07/05/19 11:16 DC 07/05/19 11:56 75 MCG Ondansetron HCl (Zofran) 4 mg 1X ONCE 07/05/19 11:15 07/05/19 11:16 DC 07/05/19 11:55 4 MG Sodium Chloride 1,000 ml @ 1,000 mls/hr 1X ONCE 07/05/19 11:15 07/05/19 12:14 DC 07/05/19 11:53 1,000 MLS/HR Allergies Allergies Allergies Coded Allergies Type Severity Reaction Last Updated Verified No Known Drug Allergies 04/02/17 No Physical Exam Physical Exam Constitutional: Well developed, well nourished, no acute distress, non-toxic appearance. [] HENT: Normocephalic, atraumatic, bilateral external ears normal, oropharynx moist, no oral exudates, nose normal. [] Eyes: PERRLA, EOMI, conjunctiva normal, no discharge. [] Neck: Normal range of motion, no tenderness, supple, no stridor. [] Cardiovascular:Heart rate regular rhythm, no murmur [] Lungs & Thorax: Bilateral breath sounds clear to auscultation [] Abdomen: Bowel sounds normal, soft, RLQ pelvic pain, no masses, no pulsatile masses. [] Skin: Warm, dry, no erythema, no rash. [] Neurologic: Alert and oriented X 3, normal motor function, normal sensory function, no focal deficits noted. [] Psychologic: Affect normal, judgement normal, mood normal. [] Current Patient Data Vital Signs Vital Signs Date Time Temp Pulse Resp B/P (MAP) Pulse Ox O2 Delivery O2 Flow Rate FiO2 07/05/19 10:51 98.0 87 20 171/102 (125) 95 Room Air 98.0 Lab Values Laboratory Tests Test 07/05/19 11:15 07/05/19 11:17 07/05/19 11:52 Urine Collection Type Unknown Urine Color Yellow Urine Clarity Clear Urine pH 8.5 Urine Specific [place] 1.020 Urine Protein Negative mg/dL (NEG-TRACE) Urine Glucose (UA) Negative mg/dL (NEG) Urine Ketones (Stick) Negative mg/dL (NEG) Urine Blood Negative (NEG) Urine Nitrite Negative (NEG) Urine Bilirubin Negative (NEG) Urine Urobilinogen Dipstick 1.0 mg/dL (0.2 mg/dL) Urine Leukocyte Esterase Negative (NEG) Urine RBC Occ /HPF (0-2) Urine WBC 1-4 /HPF (0-4) Urine Squamous Epithelial Cells Many /LPF Urine Bacteria Few /HPF (0-FEW) Urine Mucus Slight /LPF POC Urine HCG, Qualitative Hcg negative (Negative) White Blood Count 5.1 x10^3/uL (4.0-11.0) Red Blood Count 3.96 x10^6/uL (3.50-5.40) Hemoglobin 12.1 g/dL (12.0-15.5) Hematocrit 36.7 % (36.0-47.0) Mean Corpuscular Volume 93 fL (79-100) Mean Corpuscular Hemoglobin 31 pg (25-35) Mean Corpuscular Hemoglobin Concent 33 g/dL (31-37) Red Cell Distribution Width 16.2 % (11.5-14.5) H Platelet Count 331 x10^3/uL (140-400) Neutrophils (%) (Auto) 56 % (31-73) Lymphocytes (%) (Auto) 36 % (24-48) Monocytes (%) (Auto) 7 % (0-9) Eosinophils (%) (Auto) 1 % (0-3) Basophils (%) (Auto) 1 % (0-3) Neutrophils # (Auto) 2.8 x10^3/uL (1.8-7.7) Lymphocytes # (Auto) 1.8 x10^3/uL (1.0-4.8) Monocytes # (Auto) 0.3 x10^3/uL (0.0-1.1) Eosinophils # (Auto) 0.0 x10^3/uL (0.0-0.7) Basophils # (Auto) 0.1 x10^3/uL (0.0-0.2) Sodium Level 145 mmol/L (136-145) Potassium Level 3.6 mmol/L (3.5-5.1) Chloride Level 109 mmol/L (98-107) H Carbon Dioxide Level 27 mmol/L (21-32) Anion Gap 9 (6-14) Blood Urea Nitrogen 15 mg/dL (7-20) Creatinine 0.7 mg/dL (0.6-1.0) Estimated GFR (Cockcroft-Gault) 112.7 BUN/Creatinine Ratio 21 (6-20) H Glucose Level 88 mg/dL (70-99) Calcium Level 9.0 mg/dL (8.5-10.1) Magnesium Level 1.5 mg/dL (1.8-2.4) L Total Bilirubin 0.4 mg/dL (0.2-1.0) Aspartate Amino Transferase (AST) 16 U/L (15-37) Alanine Aminotransferase (ALT) 14 U/L (14-59) Alkaline Phosphatase 67 U/L (46-116) Total Protein 7.5 g/dL (6.4-8.2) Albumin 3.5 g/dL (3.4-5.0) Albumin/Globulin Ratio 0.9 (1.0-1.7) L Lipase 74 U/L (73-393) Laboratory Tests 07/05/19 11:52 Laboratory Tests 07/05/19 11:52 EKG EKG [] Radiology/Procedures Radiology/Procedures [] PATIENT: NEO MACKEY ACCOUNT: [id number] : 1980 LOCATION: ER AGE: 39 SEX: F EXAM STATUS: REG ER ORD. PHYSICIAN: CONSTANTIN BRANHAM APRN REASON: vaginal bleeding PROCEDURE: PELVIS W/TV Pelvic ultrasound HISTORY: Vaginal bleeding. FINDINGS: Exam is technically difficult due to large body habitus. Transabdominal scan: Uterus is poorly visualized. Endovaginal scan: Uterus measures 10.0 x 6.0 x 6.6 cm. No definite focal mass lesion is identified. Uterus is somewhat heterogeneous. Endometrial stripe measures approximately 9 mm. Small nabothian cysts noted at the cervix. Right ovary measures 6.1 x 2.9 x 4.6 cm. There is a cystic appearing lesion within the right ovary measuring 5 cm. Intact blood supply to the right ovary. Left ovary measures 3.1 x 3.0 x 2.5 cm. Intact blood supply to the left ovary. Left ovarian lesion with a cystic appearance measures 2.3 cm. No significant hypervascularity. Mild free pelvic fluid in the right adnexal region. IMPRESSION: 1. Somewhat limited exam due to body habitus. 2. Bilateral ovarian cysts, largest on the right measures 5 cm. 3. Mild free pelvic fluid in the right adnexal region. Electronically signed by: Constantin Renee MD (06/08/2019 1:01 PM) [facility] Course & Med Decision Making Course & Med Decision Making Pertinent Labs and Imaging studies reviewed. (See chart for details) Pain is similar to last time patient was seen. Patient has been dealing with this problem intermittently for a while. Will get labs and give supportive care. Labs are unremarkable with exception of Magnesium of 1.5. Will replace magnesium and then d/c to follow up with OB. Alejandro Disclaimer Alejandro Disclaimer This electronic medical record was generated, in whole or in part, using a voice recognition dictation system. Departure Departure Impression: Primary Impression: Abdominal pain Additional Impression: Hypomagnesemia Disposition: HOME, SELF-CARE Condition: STABLE Referrals: FELECIA LAI JR, MD (PCP) Patient Instructions: Hypomagnesemia, Ovarian Cyst Additional Instructions: Thank you for visiting [facility]. We appreciate you trusting us with your care. If any additional problems come up don't hesitate to return to visit us. Please follow up with your primary care provider so they can plan additional care if needed and know about the problem that you had. If symptoms worsen come back to the Emergency Department. Any concerning symptoms that start such as chest pain, shortness of air, weakness or numbness on one side of the body, running high fevers or any other concerning symptoms return to the ER. Please continue to follow up with [employer]AL[employer]ICER. Problem Qualifiers CONSTANTIN BRANHAM APRN Jul 05, 2019 11:24
[2019-07-05 11:31] LABS: BILIRUBIN,URINE NEGATIVE (NEG); CLARITY,URINE CLEAR; COLOR,URINE YELLOW; NITRITE,URINE NEGATIVE (NEG); PH,URINE 8.5; PROTEIN,URINE NEGATIVE (NEG-TRACE)
[2019-07-05 11:48] LABS: SQUAMOUS EPITHELIAL CELL,UR MANY /LPF
[2019-07-05 11:49] LABS: BACTERIA,URINE FEW /HPF (0-FEW); RBC,URINE OCC /HPF (0-2)
[2019-07-05] MEDS: IV NORMAL SALINE 1000ML BAG 1,000 ML IV ONE (11:53)
[2019-07-05] MEDS: ONDANSETRON PF 4 MG/2 ML VIAL. IV ONE (11:55)
[2019-07-05] MEDS: fentaNYL PF VIAL 100 MCG/2 ML VIAL IV ONE (11:56)
[2019-07-05 12:04] LABS: BASO # 0.1 x10^3/uL (0.0-0.2); BASO % 1 % (0-3); EOS % 1 % (0-3); HEMATOCRIT 36.7 % (36.0-47.0); HEMOGLOBIN 12.1 g/dL (12.0-15.5); LYMPH # 1.8 x10^3/uL (1.0-4.8); LYMPH % 36 % (24-48); MEAN CORPUSCULAR HEMOGLOBIN 31 pg (25-35); MEAN CORPUSCULAR HGB CONC 33 g/dL (31-37); MEAN CORPUSCULAR VOLUME 93 fL (79-100); MONO # 0.3 x10^3/uL (0.0-1.1); MONO % 7 % (0-9); NEUT # 2.8 x10^3/uL (1.8-7.7); NEUT % 56 % (31-73); PLATELET COUNT 331 x10^3/uL (140-400); RED BLOOD COUNT 3.96 x10^6/uL (3.50-5.40); RED CELL DISTRIBUTION WIDTH 16.2 % (11.5-14.5); WHITE BLOOD COUNT 5.1 x10^3/uL (4.0-11.0)
[2019-07-05 12:09] LABS: CREATININE 0.7 mg/dL (0.6-1.0); GFR 112.7; POTASSIUM 3.6 mmol/L (3.5-5.1)
[2019-07-05 12:15] LABS: ALBUMIN 3.5 g/dL (3.4-5.0); ALBUMIN/GLOBULIN RATIO 0.9 (1.0-1.7); MAGNESIUM 1.5 mg/dL (1.8-2.4); TOTAL BILIRUBIN 0.4 mg/dL (0.2-1.0); TOTAL PROTEIN 7.5 g/dL (6.4-8.2)
[2019-07-05] MEDS: MAGNESIUM SULFATE 1GM 100 ML IV STA (12:40)
[2019-07-05 14:03] VITALS: BP 168/108
== END 2019-07-05 14:03 | disposition home or self-care (01) ==
LOC: ER 10:46
DX: R10.31 Right lower quadrant pain (principal); E83.42 Hypomagnesemia; N93.9 Abnormal uterine and vaginal bleeding, unspecified; R11.2 Nausea with vomiting, unspecified; I10 Essential (primary) hypertension; F17.200 Nicotine dependence, unspecified, uncomplicated
CPT/HCPCS: 36415; 80053; 81001; 81025; 83690; 83735; 85025; 96361; 96365; 96375; J2405; J3010; J3475; J7030; 99285-25

== ENCOUNTER 2019-08-02 13:49 | Emergency (ER) | payer MEDICAID ==
[~2019-08-02] VITALS: Ht 165.1 cm; Wt 115.0 kg
[2019-08-02 14:44] LABS: BASO # 0.1 x10^3/uL (0.0-0.2); BASO % 2 % (0-3); EOS % 1 % (0-3); HEMATOCRIT 37.6 % (36.0-47.0); HEMOGLOBIN 12.6 g/dL (12.0-15.5); LYMPH # 1.7 x10^3/uL (1.0-4.8); LYMPH % 39 % (24-48); MEAN CORPUSCULAR HEMOGLOBIN 31 pg (25-35); MEAN CORPUSCULAR HGB CONC 33 g/dL (31-37); MEAN CORPUSCULAR VOLUME 92 fL (79-100); MONO # 0.3 x10^3/uL (0.0-1.1); MONO % 7 % (0-9); NEUT # 2.3 x10^3/uL (1.8-7.7); NEUT % 52 % (31-73); PLATELET COUNT 324 x10^3/uL (140-400); RED BLOOD COUNT 4.09 x10^6/uL (3.50-5.40); RED CELL DISTRIBUTION WIDTH 18.1 % (11.5-14.5); WHITE BLOOD COUNT 4.4 x10^3/uL (4.0-11.0)
[2019-08-02] MEDS ORDERED: ONDANSETRON PF 4 MG/2 ML VIAL. IVP ONE (14:45)
[2019-08-02] MEDS ORDERED: MORPHINE SULFATE 10 MG/ML VIAL. IV ONE (14:45)
[2019-08-02] MEDS ORDERED: FAMOTIDINE 20 MG/2 ML VIAL IVP ONE (14:45)
[2019-08-02] MEDS ORDERED: IV NORMAL SALINE 1000ML BAG 1,000 ML IV ONE (14:45)
[2019-08-02 14:46] LABS: BILIRUBIN,URINE NEGATIVE (NEG); CLARITY,URINE CLEAR; COLOR,URINE YELLOW; NITRITE,URINE NEGATIVE (NEG); PH,URINE 7.5; PROTEIN,URINE NEGATIVE (NEG-TRACE)
[2019-08-02 14:51] LABS: BACTERIA,URINE FEW /HPF (0-FEW); RBC,URINE 20-40 /HPF (0-2); SQUAMOUS EPITHELIAL CELL,UR FEW /LPF; WBC,URINE 0 /HPF (0-4)
[2019-08-02 14:53] LABS: BARBITURATES NEG (NEG); BENZODIAZEPINES NEG (NEG); CANNABINOIDS NEG (NEG); COCAINE NEG (NEG); METHADONE NEG (NEG); OPIATES NEG (NEG); PHENCYCLIDINE NEG (NEG)
[2019-08-02 14:54] LABS: AMPHETAMINE/METHAMPHETAMINE NEG (NEG)
[2019-08-02] MEDS ORDERED: CONTRAST GIVEN. MC PRN (15:00)
[2019-08-02] MEDS ORDERED: IOHEXOL 300 MG/ML 100ML VIAL. IV ONE (15:00)
[2019-08-02 15:30] LABS: CALCIUM 8.5 mg/dL (8.5-10.1); CREATININE 0.8 mg/dL (0.6-1.0); GFR 96.6; POTASSIUM 3.5 mmol/L (3.5-5.1)
[2019-08-02 15:36] LABS: ALBUMIN 3.2 g/dL (3.4-5.0); ALBUMIN/GLOBULIN RATIO 0.9 (1.0-1.7); TOTAL BILIRUBIN 0.7 mg/dL (0.2-1.0); TOTAL PROTEIN 6.9 g/dL (6.4-8.2)
[2019-08-02] MEDS ORDERED: cloNIDine HCL 0.1 MG TABLET PO ONE (16:00)
--- NOTE | 2019-08-02 16:06 | RAD ---
Exam performed: CT abdomen and pelvis with contrast HISTORY: Abdominal pain. DATE OF SERVICE: 08/02/2019. Comparison made to a CT abdomen and pelvis from August 07, 2018. TECHNIQUE: Contiguous helical acquisitions are obtained through the abdomen and pelvis during intravenous administration of 75 cc of Omnipaque 300. Sagittal and coronal reformatted images are obtained and reviewed. FINDINGS: Lung bases are clear. Visualized heart is normal. Mild hepatic steatosis. Spleen, pancreas and gallbladder appear normal. Both adrenal glands and bilateral kidneys are normal in size with symmetric excretion of contrast into both kidneys. Aorta is normal in caliber. No retroperitoneal or mesenteric lymphadenopathy seen. Small and large bowel loops are nondilated and unremarkable. The urinary bladder is decompressed. Uterus is anteverted. No adnexal masses seen. No free or focal fluid collections are identified. A soft tissue density in the right lower anterior abdominal wall is unchanged and is chronic. Bones grossly unremarkable. IMPRESSION: No acute intra-abdominal or pelvic process detected. PQRS Compliance Statement: One or more of the following individualized dose reduction techniques were utilized for this examination: 1. Automated exposure control 2. Adjustment of the mA and/or kV according to patient size 3. Use of iterative reconstruction technique Electronically signed by: Dolly Arana MD (08/02/2019 4:03 PM) [id number]
[2019-08-02] MEDS ORDERED: ONDA4TAB12 PO (17:56)
--- NOTE | 2019-08-02 17:57 | PHYS DOC ---
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 Patient denies any diarrhea. Denies any chance she is . She reports history of ovarian cyst. Denies any unusual vaginal discharge or concerns for STDs. She reports her menstrual. Started yesterday and there is nothing unusual about it. She reports 6 years of chronic abdominal issues. Review of Systems Review of Systems Constitutional: Denies fever or chills [] Eyes: Denies change in visual acuity, redness, or eye pain [] HENT: Denies nasal congestion or sore throat [] Respiratory: Denies cough or shortness of breath [] Cardiovascular: No additional information not addressed in HPI [] GI: Reports abdominal pain with nausea and vomiting, denies bloody stools or diarrhea [] : Denies dysuria or hematuria [] Musculoskeletal: Denies back pain or joint pain [] Integument: Denies rash or skin lesions [] Neurologic: Denies headache, focal weakness or sensory changes [] All other systems were reviewed and found to be within normal limits, except as documented in this note. Current Medications Current Medications Current Medications Medications (Trade) Dose Ordered Sig/Carole Start Time Stop Time Status Last Admin Dose Admin Clonidine HCl (Catapres) 0.2 mg 1X ONCE 08/02/19 16:00 08/02/19 16:01 DC 08/02/19 16:06 0.2 MG Famotidine (Pepcid Vial) 20 mg 1X ONCE 08/02/19 14:45 08/02/19 14:50 DC 08/02/19 14:56 20 MG Info (CONTRAST GIVEN -- Rx MONITORING) 1 each PRN DAILY PRN 08/02/19 15:00 08/04/19 14:59 Iohexol (Omnipaque 300 Mg/ml) 75 ml 1X ONCE 08/02/19 15:00 08/02/19 15:01 DC 07/29/19 15:30 75 ML Morphine Sulfate (Morphine Sulfate) 5 mg 1X ONCE 08/02/19 14:45 08/02/19 14:50 DC 08/02/19 14:56 5 MG Ondansetron HCl (Zofran) 4 mg 1X ONCE 08/02/19 14:45 08/02/19 14:50 DC 08/02/19 14:55 4 MG Sodium Chloride 1,000 ml @ 1,000 mls/hr 1X ONCE 08/02/19 14:45 08/02/19 15:44 DC 08/02/19 14:57 1,000 MLS/HR Allergies Allergies Allergies Coded Allergies Type Severity Reaction Last Updated Verified No Known Drug Allergies 04/02/17 No Physical Exam Physical Exam Constitutional: Well developed, well nourished, no acute distress, non-toxic appearance. [] HENT: Normocephalic, atraumatic, bilateral external ears normal, oropharynx moist, no oral exudates, nose normal. [] Eyes: PERRLA, EOMI, conjunctiva normal, no discharge. [] Neck: Normal range of motion, no tenderness, supple, no stridor. [] Cardiovascular:Heart rate regular rhythm, no murmur [] Lungs & Thorax: Bilateral breath sounds clear to auscultation [] Abdomen: Obese abdomen. Bowel sounds normal, soft, diffuse tenderness throughout the abdomen, no point tenderness in the right upper quadrant or right lower quadrant, negative Pierce sign, negative psoas sign, negative obturator sign, no guarding, no rebound tenderness, no masses, no pulsatile masses. [] Skin: Warm, dry, no erythema, no rash. [] Back: No tenderness, no CVA tenderness. [] Extremities: No tenderness, no cyanosis, no clubbing, ROM intact, no edema. [] Neurologic: Alert and oriented X 3, normal motor function, normal sensory function, no focal deficits noted. [] Psychologic: Affect normal, judgement normal, mood normal. [] Current Patient Data Vital Signs Vital Signs Date Time Temp Pulse Resp B/P (MAP) Pulse Ox O2 Delivery O2 Flow Rate FiO2 08/02/19 16:06 76 205/137 08/02/19 16:05 18 95 Room Air 08/02/19 14:00 98.3 98.3 Lab Values Laboratory Tests Test 08/02/19 13:55 08/02/19 14:10 08/02/19 14:59 Urine Collection Type Unknown Urine Color Yellow Urine Clarity Clear Urine pH 7.5 Urine Specific [place] 1.015 Urine Protein Negative mg/dL (NEG-TRACE) Urine Glucose (UA) Negative mg/dL (NEG) Urine Ketones (Stick) Negative mg/dL (NEG) Urine Blood Large (NEG) Urine Nitrite Negative (NEG) Urine Bilirubin Negative (NEG) Urine Urobilinogen Dipstick 1.0 mg/dL (0.2 mg/dL) Urine Leukocyte Esterase Negative (NEG) Urine RBC 20-40 /HPF (0-2) Urine WBC 0 /HPF (0-4) Urine Squamous Epithelial Cells Few /LPF Urine Bacteria Few /HPF (0-FEW) Urine Opiates Screen Neg (NEG) Urine Methadone Screen Neg (NEG) Urine Barbiturates Neg (NEG) Urine Phencyclidine Screen Neg (NEG) Urine Amphetamine/Methamphetamine Neg (NEG) Urine Benzodiazepines Screen Neg (NEG) Urine Cocaine Screen Neg (NEG) Urine Cannabinoids Screen Neg (NEG) Urine Ethyl Alcohol Pos (NEG) White Blood Count 4.4 x10^3/uL (4.0-11.0) Red Blood Count 4.09 x10^6/uL (3.50-5.40) Hemoglobin 12.6 g/dL (12.0-15.5) Hematocrit 37.6 % (36.0-47.0) Mean Corpuscular Volume 92 fL (79-100) Mean Corpuscular Hemoglobin 31 pg (25-35) Mean Corpuscular Hemoglobin Concent 33 g/dL (31-37) Red Cell Distribution Width 18.1 % (11.5-14.5) H Platelet Count 324 x10^3/uL (140-400) Neutrophils (%) (Auto) 52 % (31-73) Lymphocytes (%) (Auto) 39 % (24-48) Monocytes (%) (Auto) 7 % (0-9) Eosinophils (%) (Auto) 1 % (0-3) Basophils (%) (Auto) 2 % (0-3) Neutrophils # (Auto) 2.3 x10^3/uL (1.8-7.7) Lymphocytes # (Auto) 1.7 x10^3/uL (1.0-4.8) Monocytes # (Auto) 0.3 x10^3/uL (0.0-1.1) Eosinophils # (Auto) 0.0 x10^3/uL (0.0-0.7) Basophils # (Auto) 0.1 x10^3/uL (0.0-0.2) Sodium Level 144 mmol/L (136-145) Potassium Level 3.5 mmol/L (3.5-5.1) Chloride Level 108 mmol/L (98-107) H Carbon Dioxide Level 24 mmol/L (21-32) Anion Gap 12 (6-14) Blood Urea Nitrogen 14 mg/dL (7-20) Creatinine 0.8 mg/dL (0.6-1.0) Estimated GFR (Cockcroft-Gault) 96.6 BUN/Creatinine Ratio 18 (6-20) Glucose Level 74 mg/dL (70-99) Calcium Level 8.5 mg/dL (8.5-10.1) Total Bilirubin 0.7 mg/dL (0.2-1.0) Aspartate Amino Transferase (AST) 24 U/L (15-37) Alanine Aminotransferase (ALT) 26 U/L (14-59) Alkaline Phosphatase 66 U/L (46-116) Total Protein 6.9 g/dL (6.4-8.2) Albumin 3.2 g/dL (3.4-5.0) L Albumin/Globulin Ratio 0.9 (1.0-1.7) L Lipase 50 U/L (73-393) L Ethyl Alcohol Level 49 mg/dL (0-10) H Laboratory Tests 08/02/19 14:10 Laboratory Tests 08/02/19 14:59 EKG EKG [] Radiology/Procedures Radiology/Procedures []PROCEDURE: CT ABD PELV W/ IV CONTRST ONLY Exam performed: CT abdomen and pelvis with contrast HISTORY: Abdominal pain. DATE OF SERVICE: 08/02/2019. Comparison made to a CT abdomen and pelvis from August 07, 2018. TECHNIQUE: Contiguous helical acquisitions are obtained through the abdomen and pelvis during intravenous administration of 75 cc of Omnipaque 300. Sagittal and coronal reformatted images are obtained and reviewed. FINDINGS: Lung bases are clear. Visualized heart is normal. Mild hepatic steatosis. Spleen, pancreas and gallbladder appear normal. Both adrenal glands and bilateral kidneys are normal in size with symmetric excretion of contrast into both kidneys. Aorta is normal in caliber. No retroperitoneal or mesenteric lymphadenopathy seen. Small and large bowel loops are nondilated and unremarkable. The urinary bladder is decompressed. Uterus is anteverted. No adnexal masses seen. No free or focal fluid collections are identified. A soft tissue density in the right lower anterior abdominal wall is unchanged and is chronic. Bones grossly unremarkable. IMPRESSION: No acute intra-abdominal or pelvic process detected. PQRS Compliance Statement: One or more of the following individualized dose reduction techniques were utilized for this examination: 1. Automated exposure control 2. Adjustment of the mA and/or kV according to patient size 3. Use of iterative reconstruction technique Electronically signed by: Dolly Arana MD (08/02/2019 4:03 PM) [id number] DICTATED and SIGNED BY: DOLLY ARANA MD DATE: 08/02/19 1608 Course & Med Decision Making Course & Med Decision Making Pertinent Labs and Imaging studies reviewed. (See chart for details) This is a 39-year-old female patient presenting to the ED today with generalized abdominal pain around the mid abdomen as well as nausea vomiting for 3 days. Also reports history of chronic abdominal pain, urine analysis negative for infection. CBC, CMP, lipase-no acute findings. Alcohol level 49. CT of the abdomen and pelvic is negative. Patient was discharged to home. OTC medications recommended. Follow-up with primary care doctor and GI specialist in 1 to 2 weeks. Dragon Disclaimer Dragon Disclaimer This electronic medical record was generated, in whole or in part, using a voice recognition dictation system. Departure Departure Impression: Primary Impression: Generalized abdominal pain Additional Impressions: Nausea and vomiting ETOHism Disposition: 01 HOME, SELF-CARE Condition: STABLE Referrals: FELECIA LAI JR, MD (PCP) follow up in 1-2 weeks Patient Instructions: Abdominal Pain, Alcohol Problems Additional Instructions: You were evaluated in the emergency room for abdominal pain with nausea and vomiting, there was no acute findings to do work-up. You were noted to be eileen mosley. Consider getting help for alcohol abuse. Follow-up with your doctor in 1 to 2 weeks. Scripts Ondansetron (ONDANSETRON ODT) 4 Mg Tab.rapdis 1 TAB PO PRN Q6-8HRS, #16 TAB Prov: MUTJUSTUS TA APRN 08/02/19 Problem Qualifiers Additional Impressions: Nausea and vomiting Vomiting type: unspecified Vomiting Intractability: non-intractable Qualified Codes: R11.2 - Nausea with vomiting, unspecified JUSTUS STOUT APRN Aug 02, 2019 17:57
[2019-08-02 18:00] VITALS: BP 170/119
== END 2019-08-02 18:30 | disposition home or self-care (01) ==
LOC: ER 13:49
DX: R10.84 Generalized abdominal pain (principal); R11.2 Nausea with vomiting, unspecified; F10.20 Alcohol dependence, uncomplicated; Y90.9 Presence of alcohol in blood, level not specified; I10 Essential (primary) hypertension; F17.200 Nicotine dependence, unspecified, uncomplicated; Z98.51 Tubal ligation status
CPT/HCPCS: 36415; 74177; 80053; 80307; 81001; 83690; 85025; 96361; 96374; 96375; 99285; G0480; J2270; J2405; J3490; J7030

== ENCOUNTER 2019-08-30 14:30 | Emergency (ER) | payer MEDICAID ==
[~2019-08-30] VITALS: Ht 165.1 cm; Wt 113.6 kg
[~2019-08-30 14:30] MED LIST changes: +ONDA4TAB12 PO
[2019-08-30 14:52] LABS: BASO # 0.1 x10^3/uL (0.0-0.2); BASO % 1 % (0-3); EOS % 0 % (0-3); HEMATOCRIT 36.9 % (36.0-47.0); LYMPH # 1.7 x10^3/uL (1.0-4.8); LYMPH % 14 % (24-48); MEAN CORPUSCULAR HEMOGLOBIN 30 pg (25-35); MEAN CORPUSCULAR HGB CONC 33 g/dL (31-37); MEAN CORPUSCULAR VOLUME 91 fL (79-100); MONO # 0.6 x10^3/uL (0.0-1.1); MONO % 5 % (0-9); NEUT # 9.5 x10^3/uL (1.8-7.7); NEUT % 80 % (31-73); PLATELET COUNT 368 x10^3/uL (140-400); RED BLOOD COUNT 4.05 x10^6/uL (3.50-5.40); RED CELL DISTRIBUTION WIDTH 19.7 % (11.5-14.5); WHITE BLOOD COUNT 11.9 x10^3/uL (4.0-11.0)
[2019-08-30 15:09] LABS: CALCIUM 9.6 mg/dL (8.5-10.1); CREATININE 0.7 mg/dL (0.6-1.0); GFR 112.7; POTASSIUM 3.6 mmol/L (3.5-5.1)
[2019-08-30 15:13] LABS: ALBUMIN 3.9 g/dL (3.4-5.0); ALBUMIN/GLOBULIN RATIO 0.9 (1.0-1.7); TOTAL BILIRUBIN 0.9 mg/dL (0.2-1.0); TOTAL PROTEIN 8.1 g/dL (6.4-8.2)
[2019-08-30] MEDS: ONDANSETRON PF 4 MG/2 ML VIAL. IVP ONE (15:25)
[2019-08-30] MEDS: FAMOTIDINE 20 MG/2 ML VIAL IVP ONE (15:25)
[2019-08-30] MEDS: LIDO:MAALOX 1:1 20 ML SINGLE DOSE. SWSW ONE (15:25)
[2019-08-30] MEDS: MULTIVIT INFUSN,ADULT 4,VIT K 10 ML, THIAMINE INJ 100 MG, FOLIC ACID INJ 1 MG in IV NOR... IV ONE (15:44)
--- NOTE | 2019-08-30 16:08 | PHYS DOC ---
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 Patient reports drinking "a pint of [place] last night". Denies any fever. Review of Systems Review of Systems Constitutional: Denies fever or chills [] Eyes: Denies change in visual acuity, redness, or eye pain [] HENT: Denies nasal congestion or sore throat [] Respiratory: Denies cough or shortness of breath [] Cardiovascular: No additional information not addressed in HPI [] GI: Reports abdominal pain with vomiting and diarrhea denies bloody stools or diarrhea [] : Denies dysuria or hematuria [] Musculoskeletal: Denies back pain or joint pain [] Integument: Denies rash or skin lesions [] Neurologic: Denies headache, focal weakness or sensory changes [] All other systems were reviewed and found to be within normal limits, except as documented in this note. Current Medications Current Medications Current Medications Medications (Trade) Dose Ordered Sig/Carole Start Time Stop Time Status Last Admin Dose Admin Famotidine (Pepcid Vial) 20 mg 1X ONCE 08/30/19 14:45 08/30/19 14:47 DC 08/30/19 15:25 20 MG Multi-Ingredient Mouthwash/Gargle (Gi Cocktail) 20 ml 1X ONCE 08/30/19 14:45 08/30/19 14:47 DC 08/30/19 15:25 20 ML Multivitamins 10 ml/Thiamine HCl 100 mg/Folic Acid 1 mg/Sodium Chloride 1,011.2 ml @ 1,000.088 mls/hr 1X ONCE 08/30/19 15:00 08/30/19 16:00 DC 08/30/19 15:44 1,000.088 MLS/HR Ondansetron HCl (Zofran) 4 mg 1X ONCE 08/30/19 14:45 45/20 14:47 DC 08/30/19 15:25 4 MG Allergies Allergies Allergies Coded Allergies Type Severity Reaction Last Updated Verified No Known Drug Allergies 04/02/17 No Physical Exam Physical Exam Constitutional: Well developed, well nourished, no acute distress, non-toxic appearance. [] HENT: Normocephalic, atraumatic, bilateral external ears normal, oropharynx moist, no oral exudates, nose normal. [] Eyes: PERRLA, EOMI, conjunctiva normal, no discharge. [] Neck: Normal range of motion, no tenderness, supple, no stridor. [] Cardiovascular:Heart rate regular rhythm, no murmur [] Lungs & Thorax: Bilateral breath sounds clear to auscultation [] Abdomen: Obese abdomen. Bowel sounds normal, soft, diffuse tenderness throughout the abdomen, no masses, no pulsatile masses. [] Skin: Warm, dry, no erythema, no rash. [] Back: No tenderness, no CVA tenderness. [] Extremities: No tenderness, no cyanosis, no clubbing, ROM intact, no edema. [] Neurologic: Alert and oriented X 3, normal motor function, normal sensory function, no focal deficits noted. [] Psychologic: Restless, thrashing around in bed Current Patient Data Vital Signs Vital Signs Date Time Temp Pulse Resp B/P (MAP) Pulse Ox O2 Delivery O2 Flow Rate FiO2 08/30/19 14:35 97.3 97 18 97 Room Air 97.3 Lab Values Laboratory Tests Test 08/30/19 14:45 White Blood Count 11.9 x10^3/uL (4.0-11.0) H Red Blood Count 4.05 x10^6/uL (3.50-5.40) Hemoglobin 12.0 g/dL (12.0-15.5) Hematocrit 36.9 % (36.0-47.0) Mean Corpuscular Volume 91 fL (79-100) Mean Corpuscular Hemoglobin 30 pg (25-35) Mean Corpuscular Hemoglobin Concent 33 g/dL (31-37) Red Cell Distribution Width 19.7 % (11.5-14.5) H Platelet Count 368 x10^3/uL (140-400) Neutrophils (%) (Auto) 80 % (31-73) H Lymphocytes (%) (Auto) 14 % (24-48) L Monocytes (%) (Auto) 5 % (0-9) Eosinophils (%) (Auto) 0 % (0-3) Basophils (%) (Auto) 1 % (0-3) Neutrophils # (Auto) 9.5 x10^3/uL (1.8-7.7) H Lymphocytes # (Auto) 1.7 x10^3/uL (1.0-4.8) Monocytes # (Auto) 0.6 x10^3/uL (0.0-1.1) Eosinophils # (Auto) 0.0 x10^3/uL (0.0-0.7) Basophils # (Auto) 0.1 x10^3/uL (0.0-0.2) Sodium Level 143 mmol/L (136-145) Potassium Level 3.6 mmol/L (3.5-5.1) Chloride Level 101 mmol/L (98-107) Carbon Dioxide Level 22 mmol/L (21-32) Anion Gap 20 (6-14) H Blood Urea Nitrogen 10 mg/dL (7-20) Creatinine 0.7 mg/dL (0.6-1.0) Estimated GFR (Cockcroft-Gault) 112.7 BUN/Creatinine Ratio 14 (6-20) Glucose Level 83 mg/dL (70-99) Calcium Level 9.6 mg/dL (8.5-10.1) Total Bilirubin 0.9 mg/dL (0.2-1.0) Aspartate Amino Transferase (AST) 28 U/L (15-37) Alanine Aminotransferase (ALT) 24 U/L (14-59) Alkaline Phosphatase 91 U/L (46-116) Total Protein 8.1 g/dL (6.4-8.2) Albumin 3.9 g/dL (3.4-5.0) Albumin/Globulin Ratio 0.9 (1.0-1.7) L Lipase 58 U/L (73-393) L Ethyl Alcohol Level < 10 mg/dL (0-10) Laboratory Tests 08/30/19 14:45 Laboratory Tests 08/30/19 14:45 EKG EKG [] Radiology/Procedures Radiology/Procedures [] Course & Med Decision Making Course & Med Decision Making Pertinent Labs and Imaging studies reviewed. (See chart for details) This is a 39-year-old female patient presenting to the ED today with abdominal pain, nausea and vomiting that began this morning. Patient is alcoholic and had 1 pint of hard liquor last night. Patient's labs are negative for any acute findings, alcohol level less than 10, refused to give us urine. She was discharged to home. Encouraged to consider getting help for alcoholism. Dragon Disclaimer Dragon Disclaimer This electronic medical record was generated, in whole or in part, using a voice recognition dictation system. Departure Departure Impression: Primary Impression: Generalized abdominal pain Additional Impression: ETOHism Disposition: HOME, SELF-CARE Condition: STABLE Referrals: FELECIA LAI JR, MD (PCP) Follow-up in 1 to 2 weeks Patient Instructions: Abdominal Pain, Alcohol Problems Additional Instructions: You were evaluated in the emergency room for abdominal pain, with vomiting due to alcoholism. Consider getting help from [facility] for alcohol use. Scripts Ondansetron (ONDANSETRON ODT) 4 Mg Tab.rapdis 1 TAB PO PRN Q6-8HRS, #16 TAB Prov: JUSTUS STOUT APRN 08/30/19 Famotidine (FAMOTIDINE) 20 Mg Tablet 20 MG PO DAILY, #20 TAB Prov: JUSTUS STOUT APRN 4//20 COVID-19 Patient Risks: Age 65 or older: No Sign of co-morbidity: No Exp to person + for COVID: No Exp to PUI: No Travel from affected area: No Lower respiratory symptoms: No Fever: No Other: No (N95 mask) PPE Use: Full PPE with N95 mask or PAPR: Yes Problem Qualifiers JUSTUS STOUT APRN Aug 30, 2019 16:07
[2019-08-30] MEDS ORDERED: ONDA4TAB12 PO (16:36)
[2019-08-30] MEDS ORDERED: FAMO20TA5 PO (16:36)
== END 2019-08-30 16:42 | disposition home or self-care (01) ==
LOC: ER 14:30
DX: R10.84 Generalized abdominal pain (principal); R11.2 Nausea with vomiting, unspecified; I10 Essential (primary) hypertension; F17.200 Nicotine dependence, unspecified, uncomplicated; Z98.51 Tubal ligation status; F10.20 Alcohol dependence, uncomplicated; Y90.0 Blood alcohol level of less than 20 mg/100 ml
CPT/HCPCS: 36415; 80053; 83690; 85025; 96365; 96375; 99284; G0480; J2405; J3411; J3490; J7030

== ENCOUNTER 2019-09-08 14:14 | Observation (INO) | payer MEDICAID ==
[~2019-09-08] VITALS: Ht 165.1 cm; Wt 133.5 kg
[~2019-09-08 14:14] MED LIST changes: +FAMO20TA5 PO
[2019-09-08 15:57] LABS: BASO % 1 % (0-3); EOS # 0.1 x10^3/uL (0.0-0.7); EOS % 3 % (0-3); HEMATOCRIT 35.7 % (36.0-47.0); HEMOGLOBIN 11.7 g/dL (12.0-15.5); LYMPH # 2.3 x10^3/uL (1.0-4.8); LYMPH % 44 % (24-48); MEAN CORPUSCULAR HEMOGLOBIN 30 pg (25-35); MEAN CORPUSCULAR HGB CONC 33 g/dL (31-37); MEAN CORPUSCULAR VOLUME 93 fL (79-100); MONO # 0.3 x10^3/uL (0.0-1.1); MONO % 6 % (0-9); NEUT # 2.6 x10^3/uL (1.8-7.7); NEUT % 48 % (31-73); PLATELET COUNT 318 x10^3/uL (140-400); RED BLOOD COUNT 3.84 x10^6/uL (3.50-5.40); RED CELL DISTRIBUTION WIDTH 19.9 % (11.5-14.5); WHITE BLOOD COUNT 5.4 x10^3/uL (4.0-11.0)
[2019-09-08 16:02] LABS: BILIRUBIN,URINE NEGATIVE (NEG); CLARITY,URINE CLEAR; COLOR,URINE YELLOW; NITRITE,URINE NEGATIVE (NEG); PH,URINE 5.5 (<5.0-8.0); PROTEIN,URINE NEGATIVE (NEG-TRACE); UROBILINOGEN,URINE 0.2 mg/dL (0.2 mg/dL)
[2019-09-08 16:09] LABS: BARBITURATES NEG (NEG); BENZODIAZEPINES NEG (NEG); CANNABINOIDS NEG (NEG); COCAINE NEG (NEG); METHADONE NEG (NEG); OPIATES NEG (NEG); PHENCYCLIDINE NEG (NEG)
[2019-09-08 16:12] LABS: CALCIUM 8.8 mg/dL (8.5-10.1); CREATININE 0.7 mg/dL (0.6-1.0); GFR 112.7
[2019-09-08] MEDS ORDERED: MULTIVIT INFUSN,ADULT 4,VIT K 10 ML, THIAMINE INJ 100 MG, FOLIC ACID INJ 1 MG in IV NOR... IV ONE (16:15)
[2019-09-08 16:18] LABS: BACTERIA,URINE 0 /HPF (0-FEW); SQUAMOUS EPITHELIAL CELL,UR MANY /LPF; WBC,URINE RARE /HPF (0-4)
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
[2019-09-08 16:20] LABS: ALBUMIN 3.5 g/dL (3.4-5.0); ALBUMIN/GLOBULIN RATIO 0.9 (1.0-1.7); TOTAL BILIRUBIN 0.1 mg/dL (0.2-1.0); TOTAL PROTEIN 7.2 g/dL (6.4-8.2)
[2019-09-08 16:21] LABS: AMPHETAMINE/METHAMPHETAMINE NEG (NEG)
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
[2019-09-08] MEDS ORDERED: cloNIDine HCL 0.1 MG TABLET PO PRN (18:45)
[2019-09-08] MEDS ORDERED: diphenhydrAMINE 50 MG/ML VIAL IVP PRN (18:45)
[2019-09-08] MEDS ORDERED: HALOPERIDOL LACTATE 5 MG/ML VIAL. IVP PRN (18:45)
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
[2019-09-08 19:30] VITALS: BP 117/84
[2019-09-08] MEDS ORDERED: ONDANSETRON ODT 4 MG TAB.RAPDIS. PO PRN (19:30)
--- NOTE | 2019-09-08 19:55 | NUR ---
The patient, NEO MACKEY, 39 y/o, F admitted by RAPHAEL CRAFT MD, was given written information regarding hospital policies, unit procedures and contact persons. Valuables were checked and left with her.
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
[2019-09-08] MEDS: IV NORMAL SALINE 1000ML BAG 1,000 ML IV SCH (21:30)
[2019-09-08 22:33] VITALS: BP 126/88
[2019-09-09 03:00] VITALS: BP 130/84
[2019-09-09] MEDS: IV NORMAL SALINE 1000ML BAG 1,000 ML IV SCH (05:37)
[2019-09-09 07:00] VITALS: BP 167/102
[2019-09-09] MEDS ORDERED: PANTOPRAZOLE 40 MG TABLET.DR. PO SCH (07:30)
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
[2019-09-09 11:00] VITALS: BP 158/98
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
[2019-09-09] MEDS ORDERED: DOCUSATE SODIUM 100 MG CAPSULE. PO PRN (13:30)
[2019-09-09] MEDS ORDERED: oxyCODONE/APAP 5/325 1 TAB TABLET PO PRN (13:30)
[2019-09-09] MEDS ORDERED: LIDOCAINE (700MG/PATCH) PATCH. TD SCH (13:30)
--- NOTE | 2019-09-09 14:24 | RAD ---
KUB History: Abdominal pain Comparison: None. Findings: 2 supine AP portable views of the abdomen are submitted. No gas dilated bowel is identified. There is some variable retained stool in the colon. Exam is insufficient for the evaluation for free air. There are likely phleboliths in the pelvis. Impression: 1. No gas dilated bowel is identified. Electronically signed by: Cordell Monique MD (09/09/2019 2:21 PM) [id number]
--- NOTE | 2019-09-09 16:35 | NUR ---
Discharge Note: Patient was discharged home with self care. Patients IV was discontinued without any complications per RN. Patient was given discharge summary/instructions, follow-ups, and educational material. Patient did not have any further questions or concerns. Patient spoke to the PAT team and understood that she needed to get back on her medications and get help/support for her alcohol. Patient ambulated to the main entrance with all personal belongings accompanied by ARCHANA Lou, where patients sister was waiting for her to take her home.
[2019-09-09] MEDS ORDERED: PATCH REMOVAL. MC SCH (21:00)
[2019-09-10] MEDS ORDERED: DOCUSATE SODIUM 100 MG CAPSULE. PO SCH (09:00)
== END 2019-09-09 16:10 | disposition home health service (06) ==
LOC: ER 14:14 → 4 NORTH 18:29
PROVIDERS: ADMIT Internal Medicine; ATTEND Internal Medicine
DX: G92 Toxic encephalopathy (principal); S80.212A Abrasion, left knee, initial encounter; I10 Essential (primary) hypertension; K21.9 Gastro-esophageal reflux disease without esophagitis; E66.01 Morbid (severe) obesity due to excess calories; F32.9 Major depressive disorder, single episode, unspecified; F17.200 Nicotine dependence, unspecified, uncomplicated; F10.129 Alcohol abuse with intoxication, unspecified; Z98.891 History of uterine scar from previous surgery; Z90.49 Acquired absence of other specified parts of digestive tract; Z98.51 Tubal ligation status; Z98.890 Other specified postprocedural states; V43.52XA Car driver injured in collision with other type car in traffic accident, initial encounter; Y93.89 Activity, other specified; Y92.89 Other specified places as the place of occurrence of the external cause; Y99.8 Other external cause status; Y90.8 Blood alcohol level of 240 mg/100 ml or more
CPT/HCPCS: 36415; 70450; 72125; 73030; 73080; 73110; 73562; 74018; 80053; 80307; 81001; 85025; 96365; 96366; 99284; G0378; G0480; J3411; J3490; J7030; Q0162; G0379

== ENCOUNTER 2019-10-26 10:10 | Emergency (ER) | payer MEDICAID ==
[~2019-10-26] VITALS: Ht 172.7 cm; Wt 136.3 kg
[2019-10-26 11:06] LABS: BILIRUBIN,URINE NEGATIVE (NEG); NITRITE,URINE NEGATIVE (NEG); PROTEIN,URINE NEGATIVE (NEG-TRACE)
[2019-10-26 11:20] LABS: CLARITY,URINE HAZY; COLOR,URINE STRAW
[2019-10-26 11:22] LABS: RBC,URINE >40 /HPF (0-2)
[2019-10-26 11:23] LABS: BACTERIA,URINE 0 /HPF (0-FEW); WBC,URINE OCC /HPF (0-4)
[2019-10-26 11:24] LABS: BASO % 1 % (0-3); EOS % 0 % (0-3); HEMATOCRIT 36.6 % (36.0-47.0); HEMOGLOBIN 12.4 g/dL (12.0-15.5); LYMPH # 0.7 x10^3/uL (1.0-4.8); LYMPH % 16 % (24-48); MEAN CORPUSCULAR HEMOGLOBIN 31 pg (25-35); MEAN CORPUSCULAR HGB CONC 34 g/dL (31-37); MEAN CORPUSCULAR VOLUME 92 fL (79-100); MONO # 0.2 x10^3/uL (0.0-1.1); MONO % 5 % (0-9); NEUT # 3.7 x10^3/uL (1.8-7.7); NEUT % 79 % (31-73); PLATELET COUNT 288 x10^3/uL (140-400); RED BLOOD COUNT 3.98 x10^6/uL (3.50-5.40); RED CELL DISTRIBUTION WIDTH 19.9 % (11.5-14.5); WHITE BLOOD COUNT 4.7 x10^3/uL (4.0-11.0)
[2019-10-26 11:38] LABS: CALCIUM 8.1 mg/dL (8.5-10.1); CREATININE 0.9 mg/dL (0.6-1.0); GFR 84.3; POTASSIUM 3.4 mmol/L (3.5-5.1)
[2019-10-26 11:44] LABS: ALBUMIN 3.4 g/dL (3.4-5.0); ALBUMIN/GLOBULIN RATIO 0.9 (1.0-1.7); TOTAL BILIRUBIN 1.1 mg/dL (0.2-1.0); TOTAL PROTEIN 7.1 g/dL (6.4-8.2)
[2019-10-26] MEDS ORDERED: IV NORMAL SALINE 1000ML BAG 1,000 ML IV ONE (11:45)
[2019-10-26] MEDS ORDERED: LIDO:MAALOX 1:1 20 ML SINGLE DOSE. SWSW ONE (11:45)
[2019-10-26] MEDS ORDERED: ONDANSETRON PF 4 MG/2 ML VIAL. IVP ONE (11:45)
[2019-10-26 12:15] VITALS: BP 194/107
[2019-10-26] MEDS ORDERED: HALOPERIDOL LACTATE 5 MG/ML VIAL. IVP ONE (12:45)
--- NOTE | 2019-10-26 14:49 | PHYS DOC ---
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 Patient states that this started earlier today. It feels very similar to previous episode she has had. She states she has been vomiting for the last couple of days. She denies any fever, chest pain, shortness of breath, hemoptysis. She states her last drink was on Saturday. She has never had withdrawal symptoms before. Patient is requesting morphine, Zofran, fluids. Review of Systems: Review of Systems: General: Denies fever, chills, sweats, fatigue Eyes: Denies drainage, blurred vision HENT: Denies rhinorrhea, sore throat Respiratory: Denies cough, shortness of breath, wheezing Cardiac: Denies edema, palpitations, chest pain GI: Reports abdominal pain, N/V MSK: Denies back pain, neck pain Skin: Denies rash, jaundice Neuro: Denies headache, dizziness Psychiatric: Denies SI/HI Heart Score: Risk Factors: Risk Factors: DM, Current or recent (<one month) smoker, HTN, HLP, family history of CAD, obesity. Risk Scores: Score 0 - 3: 2.5% MACE over next 6 weeks - Discharge Home Score 4 - 6: 20.3% MACE over next 6 weeks - Admit for Clinical Observation Score 7 - 10: 72.7% MACE over next 6 weeks - Early Invasive Strategies Current Medications: Current Medications Medications (Trade) Dose Ordered Sig/Carole Start Time Stop Time Status Last Admin Dose Admin Haloperidol Lactate (Haldol Inj) 5 mg 1X ONCE 10/26/19 12:45 10/26/19 12:46 DC 10/26/19 12:41 5 MG Multi-Ingredient Mouthwash/Gargle (Gi Cocktail) 20 ml 1X ONCE 10/26/19 11:45 10/26/19 11:46 DC 10/26/19 11:45 20 ML Ondansetron HCl (Zofran) 4 mg 1X ONCE 10/26/19 11:45 10/26/19 11:46 DC 10/26/19 11:45 4 MG Sodium Chloride 1,000 ml @ 0 mls/hr 1X ONCE 10/26/19 11:45 10/26/19 11:46 DC 10/26/19 11:44 1,000 MLS/HR Allergies: Allergies: Allergies Coded Allergies Type Severity Reaction Last Updated Verified No Known Drug Allergies 04/02/17 No Physical Exam: PE: Constitutional: Well developed, well nourished, Cooperative, NAD, non-toxic appearing HEENT: Normocephalic, atraumatic, oropharynx moist, EOMI, PERRL, no drainage from eyes, normal conjunctiva Neck: Supple, normal range of motion, no stridor Cardiovascular: RRR, 2+ radial pulses bilaterally, no edema Respiratory: CTA bilaterally, no respiratory distress, no wheezing/crackles Abdomen: Soft, nontender, nondistended, no masses Skin: Warm, dry, intact Extremities: No obvious deformities Neurologic: Alert and Oriented x3, motor and sensory function grossly normal, no focal deficits Psychologic: Normal affect, normal judgment, normal mood. No SI/HI Current Patient Data: Labs: Laboratory Tests Test 10/26/19 10:50 10/26/19 10:58 White Blood Count 4.7 x10^3/uL (4.0-11.0) Red Blood Count 3.98 x10^6/uL (3.50-5.40) Hemoglobin 12.4 g/dL (12.0-15.5) Hematocrit 36.6 % (36.0-47.0) Mean Corpuscular Volume 92 fL (79-100) Mean Corpuscular Hemoglobin 31 pg (25-35) Mean Corpuscular Hemoglobin Concent 34 g/dL (31-37) Red Cell Distribution Width 19.9 % (11.5-14.5) H Platelet Count 288 x10^3/uL (140-400) Neutrophils (%) (Auto) 79 % (31-73) H Lymphocytes (%) (Auto) 16 % (24-48) L Monocytes (%) (Auto) 5 % (0-9) Eosinophils (%) (Auto) 0 % (0-3) Basophils (%) (Auto) 1 % (0-3) Neutrophils # (Auto) 3.7 x10^3/uL (1.8-7.7) Lymphocytes # (Auto) 0.7 x10^3/uL (1.0-4.8) L Monocytes # (Auto) 0.2 x10^3/uL (0.0-1.1) Eosinophils # (Auto) 0.0 x10^3/uL (0.0-0.7) Basophils # (Auto) 0.0 x10^3/uL (0.0-0.2) Urine Collection Type Unknown Urine Color Straw Urine Clarity Hazy Urine pH 7.0 (<5.0-8.0) Urine Specific [place] 1.020 (1.000-1.030) Urine Protein Negative mg/dL (NEG-TRACE) Urine Glucose (UA) Negative mg/dL (NEG) Urine Ketones (Stick) Negative mg/dL (NEG) Urine Blood Large (NEG) Urine Nitrite Negative (NEG) Urine Bilirubin Negative (NEG) Urine Urobilinogen Dipstick 1.0 mg/dL (0.2 mg/dL) Urine Leukocyte Esterase Negative (NEG) Urine RBC >40 /HPF (0-2) Urine WBC Occ /HPF (0-4) Urine Bacteria 0 /HPF (0-FEW) Urine Mucus Slight /LPF Sodium Level 142 mmol/L (136-145) Potassium Level 3.4 mmol/L (3.5-5.1) L Chloride Level 103 mmol/L (98-107) Carbon Dioxide Level 25 mmol/L (21-32) Anion Gap 14 (6-14) Blood Urea Nitrogen 12 mg/dL (7-20) Creatinine 0.9 mg/dL (0.6-1.0) Estimated GFR (Cockcroft-Gault) 84.3 BUN/Creatinine Ratio 13 (6-20) Glucose Level 91 mg/dL (70-99) Calcium Level 8.1 mg/dL (8.5-10.1) L Total Bilirubin 1.1 mg/dL (0.2-1.0) H Aspartate Amino Transferase (AST) 90 U/L (15-37) H Alanine Aminotransferase (ALT) 99 U/L (14-59) H Alkaline Phosphatase 71 U/L (46-116) Total Protein 7.1 g/dL (6.4-8.2) Albumin 3.4 g/dL (3.4-5.0) Albumin/Globulin Ratio 0.9 (1.0-1.7) L Lipase 37 U/L (73-393) L POC Urine HCG, Qualitative Hcg negative (Negative) Laboratory Tests 10/26/19 10:50 Laboratory Tests 10/26/19 10:50 Vital Signs: Vital Signs Date Time Temp Pulse Resp B/P (MAP) Pulse Ox O2 Delivery O2 Flow Rate FiO2 10/26/19 12:15 82 194/107 (136) 99 Room Air 10/26/19 10:22 98.4 20 98.4 EKG: EKG: [] Radiology/Procedures: Radiology/Procedures: [] Course & Med Decision Making: Course & Med Decision Making Pertinent Labs and Imaging studies reviewed. (See chart for details) Abdominal pain, nausea, vomiting.patient is a 39-year-old female with past medical history of gastritis and alcohol abuse who presents to the emergency room with abdominal pain, nausea, vomiting. Patient is requesting morphine for pain. I discussed with the patient that this is not appropriate at this time. Patient was given Zofran, fluids, GI cocktail. She states that her pain did not get any better. She was given Haldol at that time with improvement in symptoms. Basic labs were done and were normal. This is not different from her normal abdominal pain and vomiting. She no further imaging or work-up is needed at this time given her normal labs and the chronic nature of her sympto ms. Patient's test results and vitals while in the ED were fully reviewed and discussed with the patient. Patient is stable and at this time does not need admission to the hospital. We have discussed strict return precautions and the importance of following up with their Primary Care Physician. Patient stated understanding and was given an opportunity to ask any questions. Dragon Disclaimer: Dragon Disclaimer: This electronic medical record was generated, in whole or in part, using a voice recognition dictation system. Departure Departure Impression: Primary Impression: Gastritis Disposition: HOME, SELF-CARE Condition: IMPROVED Patient Instructions: Gastritis, Adult, [id number] GERA ADAN MD Oct 26, 2019 14:49
== END 2019-10-26 13:42 | disposition home or self-care (01) ==
LOC: ER 10:10
DX: K29.70 Gastritis, unspecified, without bleeding (principal); I10 Essential (primary) hypertension; F17.200 Nicotine dependence, unspecified, uncomplicated; F10.20 Alcohol dependence, uncomplicated; Y90.9 Presence of alcohol in blood, level not specified; Z98.51 Tubal ligation status
CPT/HCPCS: 36415; 80053; 81001; 81025; 83690; 85025; 96374; 96375; 99284; J1630; J2405; J7030

== ENCOUNTER 2019-11-01 21:09 | Observation (INO) | payer MEDICAID ==
[~2019-11-01] VITALS: Ht 165.1 cm; Wt 127.3 kg
--- NOTE | 2019-11-01 21:44 | PHYS DOC ---
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 Patient states couple months ago she supposed to go to the dentist and have it fixed but her dentist is still out of town. She states that she called the dentist because 3 days ago got really bad again and she is in a lot of pain from the abscess but her dentist is still out of town. She states she cannot eat because it hurts too bad. She has many broken teeth. Patient has right-sided facial swelling 2+. Patient rates her pain 10 out of 10. She denies any fevers, nausea, vomiting, chills. Review of Systems: Review of Systems: HENT: Denies nasal congestion or sore throat. Dental abscess and facial swelling. [] Heart Score: Risk Factors: Risk Factors: DM, Current or recent (<one month) smoker, HTN, HLP, family history of CAD, obesity. Risk Scores: Score 0 - 3: 2.5% MACE over next 6 weeks - Discharge Home Score 4 - 6: 20.3% MACE over next 6 weeks - Admit for Clinical Observation Score 7 - 10: 72.7% MACE over next 6 weeks - Early Invasive Strategies Allergies: Allergies: Allergies Coded Allergies Type Severity Reaction Last Updated Verified No Known Drug Allergies 04/02/17 No Physical Exam: PE: Constitutional: Well developed, well nourished, no acute distress, non-toxic appearance. [] HENT: Normocephalic, atraumatic, bilateral external ears normal, oropharynx moist, no oral exudates, nose normal. Right sided facial swelling and tenderness. Broken teeth on right upper. [] Eyes: PERRLA, EOMI, conjunctiva normal, no discharge. [] Neck: Normal range of motion, no tenderness, supple, no stridor. [] Cardiovascular:Heart rate regular rhythm, no murmur [] Lungs & Thorax: Bilateral breath sounds clear to auscultation [] Abdomen: Bowel sounds normal, soft, no tenderness, no masses, no pulsatile masses. [] Skin: Warm, dry, no erythema, no rash. [] Back: No tenderness, no CVA tenderness. [] Extremities: No tenderness, no cyanosis, no clubbing, ROM intact, no edema. [] Neurologic: Alert and oriented X 3, normal motor function, normal sensory function, no focal deficits noted. [] Psychologic: Affect normal, judgement normal, mood normal. [] Current Patient Data: Vital Signs: Vital Signs Date Time Temp Pulse Resp B/P (MAP) Pulse Ox O2 Delivery O2 Flow Rate FiO2 11/01/19 21:21 98.6 113 16 176/108 (130) 98 Room Air 98.6 EKG: EKG: [] Radiology/Procedures: Radiology/Procedures: [] Impression: [facility] [address] [place] [address] IMAGING REPORT Signed PATIENT: NEO MACKEY ACCOUNT: [id number] : 1980 LOCATION: ER AGE: 39 SEX: F EXAM STATUS: REG ER ORD. PHYSICIAN: JULIO PEARSON APRN REASON: rigth sided facial swelling and dental abscess PROCEDURE: CT MAXILLOFACIAL W/CONTRAST INDICATION: Reason: rigth sided facial swelling and dental abscess / Spl. Instructions: OMNI 300 INJ 70 MLS / History: COMPARISON: None. TECHNIQUE: Axial CT images obtained through the face with contrast. One or more of the following individualized dose reduction techniques were utilized for this examination: 1. Automated exposure control; 2. Adjustment of the mA and/or kV according to patient size; 3. Use of iterative reconstruction technique. FINDINGS: Mild mucosal thickening right maxillary sinus. Mastoid air cells are aerated. Sphenoid sinus, ethmoid air cells and frontal sinus aerated. No retro-orbital mass or hematoma. There is periapical lucency at multiple maxillary teeth bilaterally there is a moderate amount of soft tissue swelling seen at the right side of the face including adjacent to the right maxilla and mandible is also some enlarged lymph nodes seen within the neck as well as tonsillar enlargement. IMPRESSION: * Moderate amount of soft tissue swelling is seen at the right side of the face including adjacent to the right maxilla where there is some periapical lucencies at the teeth. This could be secondary to an odontogenic infection which has spread to the soft tissues. There is not a well-defined enhancing rim and fluid collection this time and this could be secondary to phlegmon formation from periapical abscess of the maxillary teeth. * Tonsillar enlargement which could be seen with hyperplasia or tonsillitis. Electronically signed by: Ashely Coffman MD (11/01/2019 11:11 PM) [id number] DICTATED and SIGNED BY: ASHELY COFFMAN MD DATE: 11/01/19 2318 Course & Med Decision Making: Course & Med Decision Making Pertinent Labs and Imaging studies reviewed. (See chart for details) Right upper teeth 3 broken teeth. Patient has trismus and cannot fully open her mouth. The face and patient's gumline is very tender. She is afebrile. Patient is given Clindamycin IV. Abscess is not drainable at this time. I have discussed this patient with Dr Rebolledo and the care plan for this patient. Dr Rebolledo feels that the patient can stay here at this hospital and can follow up with ENT at a later time if needed. [] Dragon Disclaimer: Dragon Disclaimer: This electronic medical record was generated, in whole or in part, using a voice recognition dictation system. Departure Departure Impression: Primary Impression: Dental abscess Disposition: ADMITTED INPATIENT Admitting Physician: NOAH Condition: STABLE Referrals: FELECIA LAI JR, MD (PCP) Justicifation of Admission Dx: Justifications for Admission: Justification of Admission Dx: N/A JULIO PEARSON CHIEF PORT DIRECTOR Nov 01, 2019 21:44
[2019-11-01] MEDS ORDERED: ONDANSETRON PF 4 MG/2 ML VIAL. ONE (21:48)
[2019-11-01] MEDS ORDERED: fentaNYL PF VIAL 100 MCG/2 ML VIAL IVP ONE (22:00)
[2019-11-01] MEDS ORDERED: ONDANSETRON PF 4 MG/2 ML VIAL. IVP ONE (22:00)
[2019-11-01] MEDS ORDERED: IV NORMAL SALINE 1000ML BAG 1,000 ML IV ONE (22:00)
[2019-11-01 22:14] LABS: BASO # 0.1 x10^3/uL (0.0-0.2); BASO % 1 % (0-3); EOS % 0 % (0-3); LYMPH # 1.6 x10^3/uL (1.0-4.8); LYMPH % 18 % (24-48); MEAN CORPUSCULAR HEMOGLOBIN 32 pg (25-35); MEAN CORPUSCULAR HGB CONC 34 g/dL (31-37); MEAN CORPUSCULAR VOLUME 94 fL (79-100); MONO # 0.4 x10^3/uL (0.0-1.1); MONO % 4 % (0-9); NEUT # 6.6 x10^3/uL (1.8-7.7); NEUT % 76 % (31-73); PLATELET COUNT 231 x10^3/uL (140-400); RED BLOOD COUNT 3.74 x10^6/uL (3.50-5.40); WHITE BLOOD COUNT 8.7 x10^3/uL (4.0-11.0)
[2019-11-01] MEDS ORDERED: diphenhydrAMINE 50 MG/ML VIAL IVP ONE (22:30)
[2019-11-01] MEDS ORDERED: methylPREDNISolone SOD SUCC PF 125 MG/2 ML VIAL. IV ONE (22:30)
[2019-11-01 22:31] LABS: CALCIUM 8.2 mg/dL (8.5-10.1); CREATININE 0.9 mg/dL (0.6-1.0); GFR 84.3; POTASSIUM 3.2 mmol/L (3.5-5.1)
[2019-11-01 22:42] LABS: ALBUMIN 3.2 g/dL (3.4-5.0); ALBUMIN/GLOBULIN RATIO 0.8 (1.0-1.7); TOTAL BILIRUBIN 0.6 mg/dL (0.2-1.0); TOTAL PROTEIN 7.3 g/dL (6.4-8.2)
[2019-11-01] MEDS ORDERED: CONTRAST GIVEN. MC PRN (22:45)
[2019-11-01] MEDS ORDERED: IOHEXOL 300 MG/ML 100ML VIAL. IV ONE (23:00)
--- NOTE | 2019-11-01 23:14 | RAD ---
INDICATION: Reason: rigth sided facial swelling and dental abscess / Spl. Instructions: OMNI 300 INJ 70 MLS / History: COMPARISON: None. TECHNIQUE: Axial CT images obtained through the face with contrast. One or more of the following individualized dose reduction techniques were utilized for this examination: 1. Automated exposure control; 2. Adjustment of the mA and/or kV according to patient size; 3. Use of iterative reconstruction technique. FINDINGS: Mild mucosal thickening right maxillary sinus. Mastoid air cells are aerated. Sphenoid sinus, ethmoid air cells and frontal sinus aerated. No retro-orbital mass or hematoma. There is periapical lucency at multiple maxillary teeth bilaterally there is a moderate amount of soft tissue swelling seen at the right side of the face including adjacent to the right maxilla and mandible is also some enlarged lymph nodes seen within the neck as well as tonsillar enlargement. IMPRESSION: * Moderate amount of soft tissue swelling is seen at the right side of the face including adjacent to the right maxilla where there is some periapical lucencies at the teeth. This could be secondary to an odontogenic infection which has spread to the soft tissues. There is not a well-defined enhancing rim and fluid collection this time and this could be secondary to phlegmon formation from periapical abscess of the maxillary teeth. * Tonsillar enlargement which could be seen with hyperplasia or tonsillitis. Electronically signed by: Wesley Smith MD (11/01/2019 11:11 PM) [id number]
[2019-11-01] MEDS ORDERED: ONDANSETRON PF 4 MG/2 ML VIAL. IV PRN (23:30)
[2019-11-02 00:01] VITALS: BP 202/125
[2019-11-02] MEDS: fentaNYL PF VIAL 100 MCG/2 ML VIAL IV PRN ×3 (01:15→06:23)
[2019-11-02 03:00] VITALS: BP_SYST 106; BP_SYST 159; BP_DIAS 60; BP_DIAS 96
[2019-11-02 07:29] VITALS: BP 144/114
[2019-11-02] MEDS ORDERED: POTASSIUM CHLORIDE 20 MEQ TABLET.ER. PO ONE (08:45)
[2019-11-02] MEDS ORDERED: CLINDAMYCIN 600MG PREMIX 50 ML IV ONE ×2 (08:45)
[2019-11-02] MEDS ORDERED: CLINDAMYCIN 600MG PREMIX 50 ML IV SCH (09:00)
--- NOTE | 2019-11-02 09:33 | PDOC1 ---
History and Physical Date of Admission Date of Admission DATE: 11/02/19 TIME: 09:30 Source Source: Caregiver, Chart review History of Present Illness History of Present Illness Ms Monet, is a 39 year old female admit overnight, with acute on chronic facial pain, she has right upper dental pain with facial swelling. Problem noted a couple months ago she supposed to go to the dentist and have it fixed but her dentist is still out of town. she had a long story about being sent to other dentists, and such, and Patient has right-sided facial swelling 2+. Patient rates her pain 10 out of 10. She denies any fevers, nausea, vomiting, chills. Past Medical History Cardiovascular: HTN GI: GERD, Other Psych: Depression Past Surgical History Past Surgical History: Family History Family History: Hypertension Social History Smoke: No ALCOHOL: none Drugs: None Current Problem List Problem List Problems Medical Problems: (1) Dental abscess Status: Acute Current Medications Current Medications Current Medications Sodium Chloride 1,000 ml @ 1,000 mls/hr 1X ONCE IV Last administered on 11/01/19at 21:58; Start 11/01/19 at 22:00; Stop 11/01/19 at 22:59; Status DC Fentanyl Citrate (Fentanyl 2ml Vial) 50 mcg 1X ONCE IVP Last administered on 11/01/19at 21:59; Start 11/01/19 at 22:00; Stop 11/01/19 at 22:01; Status DC Ondansetron HCl (Zofran) 4 mg STK-MED ONCE .ROUTE ; Start 11/01/19 at 21:48; Stop 11/01/19 at 21:48; Status DC Ondansetron HCl (Zofran) 4 mg 1X ONCE IVP Last administered on 11/01/19at 21:59; Start 11/01/19 at 22:00; Stop 11/01/19 at 22:01; Status DC Methylprednisolone Sodium Succinate (SOLU-Medrol 125MG VIAL) 125 mg 1X ONCE IV Last administered on 11/01/19at 22:29; Start 11/01/19 at 22:30; Stop 11/01/19 at 22:31; Status DC Diphenhydramine HCl (Benadryl) 25 mg 1X ONCE IVP Last administered on 11/01/19at 22:29; Start 11/01/19 at 22:30; Stop 11/01/19 at 22:31; Status DC Iohexol (Omnipaque 300 Mg/ml) 75 ml 1X ONCE IV Last administered on 11/01/19at 22:55; Start 11/01/19 at 23:00; Stop 11/01/19 at 23:01; Status DC Info (CONTRAST GIVEN -- Rx MONITORING) 1 each PRN DAILY PRN MC SEE COMMENTS; Start 11/01/19 at 22:45; Stop 11/03/19 at 22:44 Clindamycin Phosphate 50 ml @ 100 mls/hr 1X ONCE IV Last administered on 11/02/19at 00:36; Start 11/02/19 at 00:00; Stop 11/02/19 at 00:29; Status DC Ondansetron HCl (Zofran) 4 mg PRN Q8HRS PRN IV NAUSEA/VOMITING 1ST CHOICE; Start 11/01/19 at 23:30; Stop 11/02/19 at 23:29 Fentanyl Citrate (Fentanyl 2ml Vial) 50 mcg PRN Q1HR PRN IV SEVERE PAIN 7-10 Last administered on 11/02/19at 06:23; Start 11/01/19 at 23:30; Stop 11/02/19 at 23:29 Clindamycin Phosphate 50 ml @ 100 mls/hr Q8HRS IV ; Start 11/02/19 at 09:00 Clindamycin Phosphate 50 ml @ 100 mls/hr 1X ONCE IV ; Start 11/02/19 at 08:45; Stop 11/02/19 at 09:14; Status UNV Pantoprazole Sodium (Protonix) 40 mg DAILYAC PO ; Start 11/02/19 at 10:00 Potassium Chloride (Klor-Con) 40 meq 1X ONCE PO ; Start 11/02/19 at 08:45; Stop 11/02/19 at 08:46; Status DC Active Scripts Active [Pantoprazole] 40 MG Tablet.dr 40 Mg PO DAILYAC Allergies Allergies: Coded Allergies: No Known Drug Allergies (Unverified , 04/02/17) ROS General: No: Chills, Night Sweats, Fatigue, Malaise, Appetite, Other PSYCHOLOGICAL ROS: No: Anxiety, Behavioral Disorder, Concentration difficultie, Decreased libido, Depression, Disorientation, Hallucinations, Hostility, Irritablity, Memory difficulties, Mood Swings, Obsessive thoughts, Physical abuse, Sexual abuse, Sleep disturbances, Suicidal ideation, Other Eyes: No Blurry vision, No Decreased vision, No Double vision, No Dry eyes, No Excessive tearing, No Eye Pain, No Itchy Eyes, No Loss of vision, No Photophobia, No Scotomata, No Uses contacts, No Uses glasses, No Other HEENT: YES: Nasal congestion, Oral lesions, Sinus pain, Other; No: Heacaches, Visual Changes, Hearing change, Nasal discharge, Sore Throat, Epistaxis, Sneezing, Snoring, Tinnitus, Vertigo, Vocal changes Respiratory: No: Cough, Hemoptysis, Orthopnea, Pleuritic Pain, Shortness of breath, SOB with excertion, Sputum Changes, Stridor, Tachypnea, Wheezing, Other Cardiovascular: No Chest Pain, No Palpitations, No Orthopnea, No Paroxysmal Noc. Dyspnea, No Edema, No Lt Headedness, No Other Gastrointestinal: No Nausea, No Vomiting, No Abdominal Pain, No Diarrhea, No Constipation, No Melena, No Hematochezia, No Other Genitourinary: No Dysuria, No Frequency, No Incontinence, No Hematuria, No Retention, No Discharge, No Urgency, No Pain, No Flank Pain, No Other, No , No , No , No , No , No , No Musculoskeletal: No Gait Disturbance, No Joint Pain, No Joint Stiffness, No Joint Swelling, No Muscle Pain, No Muscular Weakness, No Pain In:, No Swelling In:, No Other Neurological: No Behavorial Changes, No Bowel/Bladder ControlChng, No Confusion, No Dizziness, No Gait Disturbance, No Headaches, No Impaired Coord/balance, No Memory Loss, No Numbness/Tingling, No Seizures, No Speech Problems, No Tremors, No Visual Changes, No Weakness, No Other Skin: Yes Dry Skin; No Eczema, No Hair Changes, No Lumps, No Mole Changes, No Mottling, No Nail Changes, No Pruritus, No Rash, No Skin Lesion Changes, No Other, No Acne Physical Exam General: Alert, Cooperative, No acute distress HEENT: PERRLA Lungs: Clear to auscultation Heart: S1S2, RRR Extremities: No edema Skin: No rashes Neuro: Normal speech Psych/Mental Status: Mental status NL, Mood NL Vitals Vitals Vital Signs Date Time Temp Pulse Resp B/P (MAP) Pulse Ox O2 Delivery O2 Flow Rate FiO2 11/02/19 07:29 98.4 94 18 144/114 (124) 95 Room Air 98.4 Labs Labs Laboratory Tests Test 11/01/19 22:00 White Blood Count 8.7 x10^3/uL (4.0-11.0) Red Blood Count 3.74 x10^6/uL (3.50-5.40) Hemoglobin 12.0 g/dL (12.0-15.5) Hematocrit 35.0 % (36.0-47.0) Mean Corpuscular Volume 94 fL (79-100) Mean Corpuscular Hemoglobin 32 pg (25-35) Mean Corpuscular Hemoglobin Concent 34 g/dL (31-37) Red Cell Distribution Width 20.0 % (11.5-14.5) Platelet Count 231 x10^3/uL (140-400) Neutrophils (%) (Auto) 76 % (31-73) Lymphocytes (%) (Auto) 18 % (24-48) Monocytes (%) (Auto) 4 % (0-9) Eosinophils (%) (Auto) 0 % (0-3) Basophils (%) (Auto) 1 % (0-3) Neutrophils # (Auto) 6.6 x10^3/uL (1.8-7.7) Lymphocytes # (Auto) 1.6 x10^3/uL (1.0-4.8) Monocytes # (Auto) 0.4 x10^3/uL (0.0-1.1) Eosinophils # (Auto) 0.0 x10^3/uL (0.0-0.7) Basophils # (Auto) 0.1 x10^3/uL (0.0-0.2) Sodium Level 139 mmol/L (136-145) Potassium Level 3.2 mmol/L (3.5-5.1) Chloride Level 102 mmol/L (98-107) Carbon Dioxide Level 29 mmol/L (21-32) Anion Gap 8 (6-14) Blood Urea Nitrogen 7 mg/dL (7-20) Creatinine 0.9 mg/dL (0.6-1.0) Estimated GFR (Cockcroft-Gault) 84.3 BUN/Creatinine Ratio 8 (6-20) Glucose Level 101 mg/dL (70-99) Calcium Level 8.2 mg/dL (8.5-10.1) Total Bilirubin 0.6 mg/dL (0.2-1.0) Aspartate Amino Transf (AST/SGOT) 44 U/L (15-37) Alanine Aminotransferase (ALT/SGPT) 56 U/L (14-59) Alkaline Phosphatase 81 U/L (46-116) Total Protein 7.3 g/dL (6.4-8.2) Albumin 3.2 g/dL (3.4-5.0) Albumin/Globulin Ratio 0.8 (1.0-1.7) Laboratory Tests Test 11/01/19 22:00 White Blood Count 8.7 x10^3/uL (4.0-11.0) Red Blood Count 3.74 x10^6/uL (3.50-5.40) Hemoglobin 12.0 g/dL (12.0-15.5) Hematocrit 35.0 % (36.0-47.0) Mean Corpuscular Volume 94 fL (79-100) Mean Corpuscular Hemoglobin 32 pg (25-35) Mean Corpuscular Hemoglobin Concent 34 g/dL (31-37) Red Cell Distribution Width 20.0 % (11.5-14.5) Platelet Count 231 x10^3/uL (140-400) Neutrophils (%) (Auto) 76 % (31-73) Lymphocytes (%) (Auto) 18 % (24-48) Monocytes (%) (Auto) 4 % (0-9) Eosinophils (%) (Auto) 0 % (0-3) Basophils (%) (Auto) 1 % (0-3) Neutrophils # (Auto) 6.6 x10^3/uL (1.8-7.7) Lymphocytes # (Auto) 1.6 x10^3/uL (1.0-4.8) Monocytes # (Auto) 0.4 x10^3/uL (0.0-1.1) Eosinophils # (Auto) 0.0 x10^3/uL (0.0-0.7) Basophils # (Auto) 0.1 x10^3/uL (0.0-0.2) Sodium Level 139 mmol/L (136-145) Potassium Level 3.2 mmol/L (3.5-5.1) Chloride Level 102 mmol/L (98-107) Carbon Dioxide Level 29 mmol/L (21-32) Anion Gap 8 (6-14) Blood Urea Nitrogen 7 mg/dL (7-20) Creatinine 0.9 mg/dL (0.6-1.0) Estimated GFR (Cockcroft-Gault) 84.3 BUN/Creatinine Ratio 8 (6-20) Glucose Level 101 mg/dL (70-99) Calcium Level 8.2 mg/dL (8.5-10.1) Total Bilirubin 0.6 mg/dL (0.2-1.0) Aspartate Amino Transf (AST/SGOT) 44 U/L (15-37) Alanine Aminotransferase (ALT/SGPT) 56 U/L (14-59) Alkaline Phosphatase 81 U/L (46-116) Total Protein 7.3 g/dL (6.4-8.2) Albumin 3.2 g/dL (3.4-5.0) Albumin/Globulin Ratio 0.8 (1.0-1.7) VTE Prophylaxis Ordered VTE Prophylaxis Devices: No VTE Pharmacological Prophylaxi: Yes Assessment/Plan Assessment/Plan tooth abcess with facial pain, and reported unable to eat, admittted obs o vernight, able to eat this AM, dc home morbidly obese, BMI 46 htn, HCTZ at home Justicifation of Admission Dx: Justifications for Admission: Justification of Admission Dx: No (obs, DC home) RAPHAEL CRAFT MD Nov 02, 2019 09:33
--- NOTE | 2019-11-02 09:46 | PDOC3 ---
Discharge Summary Visit Information Date of Admission: Nov 01, 2019 Date of Discharge: Nov 02, 2019 Final Diagnosis tooth abcess with facial pain, and reported unable to eat, admittted obs overnight, able to eat this AM, dc home morbidly obese, BMI 46 htn, HCTZ at home Problems Medical Problems: (1) Dental abscess Status: Acute Brief Hospital Course Allergies Allergies Coded Allergies Type Severity Reaction Last Updated Verified No Known Drug Allergies 04/02/17 No Vital Signs Vital Signs Date Time Temp Pulse Resp B/P (MAP) Pulse Ox O2 Delivery O2 Flow Rate FiO2 11/02/19 07:29 98.4 94 18 144/114 (124) 95 Room Air 98.4 Lab Results Laboratory Tests Test 11/01/19 22:00 White Blood Count 8.7 x10^3/uL (4.0-11.0) Red Blood Count 3.74 x10^6/uL (3.50-5.40) Hemoglobin 12.0 g/dL (12.0-15.5) Hematocrit 35.0 % (36.0-47.0) Mean Corpuscular Volume 94 fL (79-100) Mean Corpuscular Hemoglobin 32 pg (25-35) Mean Corpuscular Hemoglobin Concent 34 g/dL (31-37) Red Cell Distribution Width 20.0 % (11.5-14.5) Platelet Count 231 x10^3/uL (140-400) Neutrophils (%) (Auto) 76 % (31-73) Lymphocytes (%) (Auto) 18 % (24-48) Monocytes (%) (Auto) 4 % (0-9) Eosinophils (%) (Auto) 0 % (0-3) Basophils (%) (Auto) 1 % (0-3) Neutrophils # (Auto) 6.6 x10^3/uL (1.8-7.7) Lymphocytes # (Auto) 1.6 x10^3/uL (1.0-4.8) Monocytes # (Auto) 0.4 x10^3/uL (0.0-1.1) Eosinophils # (Auto) 0.0 x10^3/uL (0.0-0.7) Basophils # (Auto) 0.1 x10^3/uL (0.0-0.2) Sodium Level 139 mmol/L (136-145) Potassium Level 3.2 mmol/L (3.5-5.1) Chloride Level 102 mmol/L (98-107) Carbon Dioxide Level 29 mmol/L (21-32) Anion Gap 8 (6-14) Blood Urea Nitrogen 7 mg/dL (7-20) Creatinine 0.9 mg/dL (0.6-1.0) Estimated GFR (Cockcroft-Gault) 84.3 BUN/Creatinine Ratio 8 (6-20) Glucose Level 101 mg/dL (70-99) Calcium Level 8.2 mg/dL (8.5-10.1) Total Bilirubin 0.6 mg/dL (0.2-1.0) Aspartate Amino Transf (AST/SGOT) 44 U/L (15-37) Alanine Aminotransferase (ALT/SGPT) 56 U/L (14-59) Alkaline Phosphatase 81 U/L (46-116) Total Protein 7.3 g/dL (6.4-8.2) Albumin 3.2 g/dL (3.4-5.0) Albumin/Globulin Ratio 0.8 (1.0-1.7) Laboratory Tests Test 11/01/19 22:00 White Blood Count 8.7 x10^3/uL (4.0-11.0) Red Blood Count 3.74 x10^6/uL (3.50-5.40) Hemoglobin 12.0 g/dL (12.0-15.5) Hematocrit 35.0 % (36.0-47.0) Mean Corpuscular Volume 94 fL (79-100) Mean Corpuscular Hemoglobin 32 pg (25-35) Mean Corpuscular Hemoglobin Concent 34 g/dL (31-37) Red Cell Distribution Width 20.0 % (11.5-14.5) Platelet Count 231 x10^3/uL (140-400) Neutrophils (%) (Auto) 76 % (31-73) Lymphocytes (%) (Auto) 18 % (24-48) Monocytes (%) (Auto) 4 % (0-9) Eosinophils (%) (Auto) 0 % (0-3) Basophils (%) (Auto) 1 % (0-3) Neutrophils # (Auto) 6.6 x10^3/uL (1.8-7.7) Lymphocytes # (Auto) 1.6 x10^3/uL (1.0-4.8) Monocytes # (Auto) 0.4 x10^3/uL (0.0-1.1) Eosinophils # (Auto) 0.0 x10^3/uL (0.0-0.7) Basophils # (Auto) 0.1 x10^3/uL (0.0-0.2) Sodium Level 139 mmol/L (136-145) Potassium Level 3.2 mmol/L (3.5-5.1) Chloride Level 102 mmol/L (98-107) Carbon Dioxide Level 29 mmol/L (21-32) Anion Gap 8 (6-14) Blood Urea Nitrogen 7 mg/dL (7-20) Creatinine 0.9 mg/dL (0.6-1.0) Estimated GFR (Cockcroft-Gault) 84.3 BUN/Creatinine Ratio 8 (6-20) Glucose Level 101 mg/dL (70-99) Calcium Level 8.2 mg/dL (8.5-10.1) Total Bilirubin 0.6 mg/dL (0.2-1.0) Aspartate Amino Transf (AST/SGOT) 44 U/L (15-37) Alanine Aminotransferase (ALT/SGPT) 56 U/L (14-59) Alkaline Phosphatase 81 U/L (46-116) Total Protein 7.3 g/dL (6.4-8.2) Albumin 3.2 g/dL (3.4-5.0) Albumin/Globulin Ratio 0.8 (1.0-1.7) Brief Hospital Course Ms. Monet is a 39 old female, admit with facial pain and swelling, infection from tooth abcess, better with clinda given, needs f/u with A DENTIST Discharge Information Condition at Discharge: Improved Follow Up: Weeks Disposition/Orders: D/C to Home Scheduled [Pantoprazole] 40 MG TABLET., 40 MG PO DAILYAC, #30 Ref 2 Prescribed by: RAPHAEL CRAFT on 08/09/18 1039 Last Action: Converted on 11/02/19 0838 by RAPHAEL CRAFT Patient Instructions Patient Instructions a/d same, obs Justicifation of Admission Dx: Justifications for Admission: Justification of Admission Dx: No (obs, DC home) RAPHAEL CRAFT MD Nov 02, 2019 09:46
[2019-11-02] MEDS ORDERED: PANTOPRAZOLE 40 MG TABLET.DR. PO SCH (10:00)
[2019-11-02] MEDS ORDERED: OXYC-325 PO (10:23)
[2019-11-02] MEDS ORDERED: CLIN300C8 PO (10:23)
[2019-11-02 10:28] VITALS: BP 165/103
[2019-11-02] MEDS ORDERED: amLODIPine BESYLATE 5 MG TABLET PO SCH (10:30)
[2019-11-02] MEDS ORDERED: hydroCHLOROthiazide 25 MG TABLET PO SCH (11:00)
[2019-11-02 11:02] VITALS: BP 165/103
--- NOTE | 2019-11-02 11:55 | NUR ---
SW following. Discussed with RN, pt from home, discharging today per RN. RN advised no SW needs.
== END 2019-11-02 12:25 | disposition home or self-care (01) ==
LOC: ER 21:09 → INTOOBSV 23:43 → 4 NORTH 23:43
PROVIDERS: ADMIT Family Medicine; ATTEND Family Medicine
DX: K04.7 Periapical abscess without sinus (principal); I10 Essential (primary) hypertension; E66.01 Morbid (severe) obesity due to excess calories; Z68.42 Body mass index [BMI] 45.0-49.9, adult; Z87.891 Personal history of nicotine dependence; Z98.891 History of uterine scar from previous surgery; J35.1 Hypertrophy of tonsils
CPT/HCPCS: 36415; 70487; 80053; 85025; 96365; 96366; 96375; 96376; 99284; G0378; G0379; J1200; J2405; J2930; J3010; J3490; J7030; Q9967